=== PATIENT | male | born 1965 | race Caucasian/White ===

== ENCOUNTER 2020-06-14 14:13 | Outpatient (REF) | payer OTHER, SELFPAY ==
--- NOTE | 2020-06-14 14:32 | XR_ITS ---
EXAMINATION: XR LUMBOSACRAL SPINE CLINICAL INFORMATION: Lower back pain COMPARISON: None TECHNIQUE: Three views of the lumbosacral spine. FINDINGS: There is no fracture or subluxation. Vertebral body height and alignment is maintained. Small endplate osteophytes. Facet arthropathy at the lumbar spine. The sacroiliac joints are symmetric. The sacrum appears intact. The bowel gas pattern is unremarkable. XR/XR lumbar spine 2-3V IMPRESSION: Mild degenerative changes of the lumbar spine.
[2020-06-14 15:18] LABS: D Dimer < 200 NG/ML
== END 2020-06-14 14:14 | disposition home or self-care (01) ==
LOC: HO.XRAY 14:13
PROVIDERS: PCP Physician Assistant; Visit Provider Nurse Practitioner Family
DX: E11.42 Type 2 diabetes mellitus with diabetic polyneuropathy (principal); G89.29 Other chronic pain; M54.5 Low back pain; G62.9 Polyneuropathy, unspecified
CPT/HCPCS: 36415; 72100; 85379

== ENCOUNTER 2020-08-28 15:30 | Outpatient (REF) | payer OTHER, SELFPAY ==
--- NOTE | 2020-08-28 15:32 | MR_ITS ---
MR LUMBAR SPINE WITHOUT IV CONTRAST CLINICAL INFORMATION: Lumbar region radiculopathy COMPARISON: Lumbar spine radiographs 06/14/2020. TECHNIQUE: MRI of the lumbar spine was obtained using routine sequences without contrast. FINDINGS: There are 5 nonrib-bearing lumbar-type vertebral bodies. Lumbar alignment is normal. The vertebral body heights are maintained. Partial disc desiccation at L1-L2, L2-L3, and L3-L4. There is no bone marrow edema. There are no acute fractures. Conus terminates at the L1 level. There are no significant soft tissue findings. L1-L2: Slight annular disc bulge and mild bilateral facet arthropathy. No central canal stenosis and no foraminal stenosis. L2-L3: Small annular disc bulge and mild bilateral facet arthropathy. No central canal stenosis. Mild foraminal encroachment bilaterally. L3-L4: Diffuse annular disc bulge and bilateral facet arthropathy. No central canal stenosis. There is mild foraminal encroachment bilaterally. L4-L5: Diffuse annular disc bulge and moderate bilateral facet arthropathy. No central canal stenosis. There is mild foraminal encroachment bilaterally. L5-S1: Epidural lipomatosis results in moderate to severe thecal sac effacement. Left greater than right lateral disc protrusions resulting in mass effect on the extraforaminal left greater than right L5 nerve roots, best seen on the axial series. MR/MR lumbar spine wo con IMPRESSION: - At L5-S1, there are left greater than right lateral disc protrusions resulting in mass effect on the extraforaminal left greater than right L5 nerve roots, best seen on the axial series. Epidural lipomatosis at L5-S1 results in moderate to severe thecal sac effacement. - Additional degenerative changes throughout the lumbar spine as described.
== END 2020-08-28 15:31 | disposition home or self-care (01) ==
LOC: HO.MRI 15:30
PROVIDERS: Visit Provider Physician Assistant
DX: M54.16 Radiculopathy, lumbar region (principal)
CPT/HCPCS: 72148

== ENCOUNTER → 2020-10-25 13:51 | Outpatient (BNVA) | payer OTHER, SELFPAY | PROVIDERS: PCP Physician Assistant; Visit Provider Anesthesiology | DX: M47.816 Spondylosis without myelopathy or radiculopathy, lumbar region (principal); E66.01 Morbid (severe) obesity due to excess calories; Z68.38 Body mass index [BMI] 38.0-38.9, adult; Z79.899 Other long term (current) drug therapy; Z71.3 Dietary counseling and surveillance | CPT/HCPCS: 99202 ==

== ENCOUNTER → 2020-11-22 14:01 | Outpatient (BNVA) | payer OTHER, SELFPAY | PROVIDERS: PCP Physician Assistant; Visit Provider Nurse Practitioner Gerontology | DX: E11.65 Type 2 diabetes mellitus with hyperglycemia (principal); E11.42 Type 2 diabetes mellitus with diabetic polyneuropathy; E11.21 Type 2 diabetes mellitus with diabetic nephropathy; I10 Essential (primary) hypertension; E78.5 Hyperlipidemia, unspecified; E66.01 Morbid (severe) obesity due to excess calories | CPT/HCPCS: 82947; 99212 ==

== ENCOUNTER → 2021-01-07 14:19 | Outpatient (BNVA) | payer OTHER, SELFPAY | PROVIDERS: PCP Physician Assistant; Visit Provider Anesthesiology | DX: M47.816 Spondylosis without myelopathy or radiculopathy, lumbar region (principal); E66.01 Morbid (severe) obesity due to excess calories | CPT/HCPCS: 99212 ==

== ENCOUNTER 2021-01-15 06:28 | Outpatient (REF) | payer OTHER, SELFPAY ==
--- NOTE | ~2021-01-15 | FL_ITS ---
EXAMINATION: XR FLUOROSCOPY WITH IMAGES CLINICAL INFORMATION: Spondylosis without myelopathy or radiculopathy. COMPARISON: None. TECHNIQUE: Fluoroscopy performed by Hilda Arnold NP. Fluoroscopy time: 0.7 minutes DAP: 15.7 Gycm2 Images: 6 FINDINGS: There are needles positioned lateral to bilateral L4 and L5 pedicles with contrast opacifying the soft tissues for pain management. Visualized bones and the disc spaces are normal. FL/FL guidance in treatment room IMPRESSION: Fluoroscopy was provided to Clayton Stevens for pain management
== END 2021-01-15 06:29 | disposition home or self-care (01) ==
LOC: HO.RADIR 06:28
PROVIDERS: Visit Provider Anesthesiology
DX: M47.816 Spondylosis without myelopathy or radiculopathy, lumbar region (principal); E66.01 Morbid (severe) obesity due to excess calories
CPT/HCPCS: 64493; 64494; Q9967

== ENCOUNTER → 2021-01-21 11:30 | Outpatient (BNVA) | payer OTHER, SELFPAY | PROVIDERS: PCP Physician Assistant; Visit Provider Anesthesiology ==

== ENCOUNTER 2021-03-19 07:52 | Outpatient (REF) | payer OTHER, SELFPAY | END 2021-03-19 07:53 | disposition home or self-care (01) | LOC: HO.RADIR 07:52 | PROVIDERS: Visit Provider Anesthesiology | DX: Z13.89 Encounter for screening for other disorder (principal) ==

== ENCOUNTER 2021-05-28 14:00 | Outpatient (RCR) | payer OTHER, SELFPAY ==
--- NOTE | 2021-04-19 08:19 | MHC.PT.EP ---
[facility] [place] Office [place] Office [place] Office [address] Leandro Martinez [address] [phone] F: [phone] F: [phone] F: [phone] F: [phone] Physical Therapy Plan of Care Date of Evaluation: Date of Surgery: Diagnosis: This is a 55 yo male presenting to skilled PT with a script for unspecified thoracic, thoracolumbar and lumbosacra Assessment: This is a 55 yo male presenting to skilled PT with a script for unspecified thoracic, thoracolumbar and lumbosacral. His pain started about 1 year ago when he fell in a laundry mat when he tripped on step. He wants to look into a lawsuit. Following this he had back aches and leg tingling and numbness. He went to MD who reported that this was neuropathy. He does report poor blood sugars and nutrition but is not convinced his symptoms are neuropathy. Today at [facility] he comes in with back pain that is across the low back and described as achy, at B quads and described as burning and at B feet which are described as numb/swollen. He was being followed by [facility] pain management for chronic back pain where he received cortisone injections but denied epidural injections and surgery. He reports that he occasionally walks with a straight cane for balance. He has tried the chiropractor which helped mildly (manipulations only) and he is interested in trialing acupuncture as well if pain does not improve with PT. Assessment reveals pain that ranges up to a 5/10. He demos decreased gross LB and lumbar ROM, decreased gross LB and core strength, impaired gait pattern with evidence of decreased balance as well as gross functional decline with sitting, standing, walking and sleeping. His goals are to improve his symptoms and ROM. He works as a information systems security manager and has a history of neuropathy. MRI shows At L5-S1, there are left greater than right lateral disc protrusions resulting in mass effect on the extraforaminal left greater than right L5 nerve roots, best seen on the axial series. Epidural lipomatosis at L5-S1 results in moderate to severe thecal sac effacement. He was educated on PT POC and anatomy extensively. He is a fair candidate for skilled PT 2x/wk for 5wks. Frequency and Duration: The patient will be seen 2x/wk for 5wks Short Term Goals: I in HEP Demo normal lumbar ROM without peripheralization Centralize symptoms in 3 weeks Detention Goals: Tolerate sitting for 30 mins without BLE symptoms increasing Demo proper core stab without PT cuing Demo proper squatting and lifting techniques without cuing from PT Treatment Plan: Modalities to reduce pain, spasms and effusion. Manual therapy to restore motion and function. Therapeutic exercise to improve strength and flexibility. Neuromuscular re-education for posture and balance. Therapeutic activities to return to functional activities of daily living. Electronically signed by: Jil Dior PT Please sign and return to therapist. Thank you for your referral.
--- NOTE | 2021-06-28 15:19 | MHC.PT.DC ---
[facility] [place] Office [place] Office [place] Office [address] Leandro Martinez [address] [phone] F: [phone] F: [phone] F: [phone] F: [phone] Physical Therapy Discharge Report Diagnosis: This is a 55 yo male presenting to skilled PT with a script for unspecified thoracic, thoracolumbar and lumbosacra Date of Surgery: Date of Evaluation: 04/18/21 Date of Discharge: 06/28/21 Treatments to Date: 5 Cancellations to Date: 0 No Shows to Date: 0 Discharge Status: Discharge Summary: 05/28: Pt came 15 mins late to the last appointment he attended. He reports symptoms with all ther-ex and continuation of symptoms. Educated on importance of doing HEP and continuing exercises at home. He is fatigued with ther-ex and would benefit from continued exercise and cardio. Patient did not have further appointments scheduled, kept chart open for 30 days in case patient called to make further appointments prior to DC. DC to HEP Electronically signed by: Jil Dior PT Please sign and return to therapist. Thank you for your referral.
== END 2021-06-28 15:20 | disposition home or self-care (01) ==
LOC: HO.PTCHIC 14:00
PROVIDERS: PCP Physician Assistant; Visit Provider Physician Assistant
DX: M51.9 Unspecified thoracic, thoracolumbar and lumbosacral intervertebral disc disorder (principal)
CPT/HCPCS: 97110; 97162

== ENCOUNTER 2021-06-29 07:15 | Outpatient (REF) | payer OTHER, SELFPAY ==
[2021-06-29 09:38] LABS: Hematocrit 47.4 % (42.0-52.0); Hemoglobin 15.9 g/dl (14.0-18.0); Mean Corpuscular HGB Conc 33.5 g/dl (31.0-36.0); Mean Corpuscular Hemoglobin 28.2 pg (27.0-33.0); Mean Platelet Volume 9.9 fL (9.4-12.4); Platelet Count 338 X10*3/uL (160-400); Red Blood Count 5.64 X10*6/uL (4.60-5.80); White Blood Count 9.4 X10*3/uL (4.8-10.8)
[2021-06-29 09:40] LABS: Estimated Average Glucose 272 mg/dL; Hemoglobin A1c % 11.1 %
[2021-06-29 09:50] LABS: Alanine Aminotransferase 26 U/L (0-40); Albumin Level 4.3 g/dL (3.5-5.0); Alkaline Phosphatase 102 U/L (39-117); Anion Gap 14 (12-20); Aspartate Amino Transferase 16 U/L (5-37); Bilirubin Total 0.8 mg/dL (0.0-1.0); Blood Urea Nitrogen 17 mg/dL (9-16); Calcium 9.8 mg/dL (8.4-10.2); Carbon Dioxide 26 mmol/L (22-29); Chloride 98 mmol/L (96-108); Cholesterol 185 mg/dL; Estimated Glomerular Filt Rate > 60; Glucose Fasting 295 mg/dL (60-99); HDL Cholesterol 39 mg/dL; LDL Cholesterol Calculated 114 mg/dl; Potassium 4.7 mmol/L (3.3-5.1); Sodium 133 mmol/L (135-145); Total Protein 7.4 g/dL (6.5-8.0); Triglycerides 163 mg/dL
[2021-06-29 10:02] LABS: Alanine Aminotransferase 26 U/L (0-40); Albumin Level 4.2 g/dL (3.5-5.0); Alkaline Phosphatase 101 U/L (39-117); Anion Gap 15 (12-20); Aspartate Amino Transferase 16 U/L (5-37); Bilirubin Total 0.8 mg/dL (0.0-1.0); Blood Urea Nitrogen 17 mg/dL (9-16); Calcium 9.8 mg/dL (8.4-10.2); Carbon Dioxide 25 mmol/L (22-29); Chloride 99 mmol/L (96-108); Cholesterol 184 mg/dL; Estimated Glomerular Filt Rate > 60; Glucose Fasting 291 mg/dL (60-99); HDL Cholesterol 38 mg/dL; LDL Cholesterol Calculated 115 mg/dl; Potassium 4.7 mmol/L (3.3-5.1); Sodium 134 mmol/L (135-145); Total Protein 7.3 g/dL (6.5-8.0); Triglycerides 158 mg/dL
[2021-06-29 10:16] LABS: Prostate Specific Antigen Scr 1.09 ng/mL (<0.05-4.0); TSH reflex Free T4 0.44 uIU/mL (0.32-4.0)
[2021-06-29 10:29] LABS: Folate 12.6 ng/mL (> or = 4.0); Vitamin B12 658 pg/mL (200-900)
[2021-06-30 06:36] LABS: LDL Cholesterol Direct 124 mg/dL (<100)
== END 2021-06-29 07:16 | disposition home or self-care (01) ==
LOC: HO.LAB 07:15
PROVIDERS: Nurse Practitioner Gerontology; PCP Physician Assistant; Visit Provider Physician Assistant
DX: Z12.5 Encounter for screening for malignant neoplasm of prostate (principal); E11.42 Type 2 diabetes mellitus with diabetic polyneuropathy; E11.65 Type 2 diabetes mellitus with hyperglycemia; I10 Essential (primary) hypertension; Z79.4 Long term (current) use of insulin
CPT/HCPCS: 36415; 80053; 80061; 82607; 82746; 83036; 83721; 84153; 84443; 85027

== ENCOUNTER → 2021-07-09 09:22 | Outpatient (BNVA) | payer OTHER, SELFPAY | PROVIDERS: PCP Physician Assistant; Visit Provider Nurse Practitioner Gerontology | DX: E11.65 Type 2 diabetes mellitus with hyperglycemia (principal); E11.42 Type 2 diabetes mellitus with diabetic polyneuropathy; E11.21 Type 2 diabetes mellitus with diabetic nephropathy; E78.5 Hyperlipidemia, unspecified; E66.01 Morbid (severe) obesity due to excess calories; I10 Essential (primary) hypertension; R10.9 Unspecified abdominal pain | CPT/HCPCS: 99212 ==

== ENCOUNTER → 2021-08-29 15:48 | Outpatient (BNVA) | payer OTHER, SELFPAY | PROVIDERS: PCP Physician Assistant; Visit Provider Registered Nurse Diabetes Educator ==

== ENCOUNTER 2021-10-15 15:27 | Outpatient (REF) | payer OTHER, SELFPAY ==
[2021-10-15 16:20] LABS: Anion Gap 13 (12-20); Blood Urea Nitrogen 20 mg/dL (9-16); Calcium 9.7 mg/dL (8.4-10.2); Carbon Dioxide 29 mmol/L (22-29); Chloride 97 mmol/L (96-108); Estimated Glomerular Filt Rate > 60; Glucose Random 333 mg/dL (60-115); Potassium 4.4 mmol/L (3.3-5.1); Sodium 135 mmol/L (135-145)
[2021-10-15 16:57] LABS: Folate 14.4 ng/mL (> or = 4.0); Vitamin B12 1372 pg/mL (200-900)
== END 2021-10-15 15:28 | disposition home or self-care (01) ==
LOC: HO.LAB 15:27
PROVIDERS: PCP Physician Assistant; Visit Provider Physician Assistant
DX: Z01.812 Encounter for preprocedural laboratory examination (principal); E11.21 Type 2 diabetes mellitus with diabetic nephropathy
CPT/HCPCS: 36415; 80048; 82607; 82746

== ENCOUNTER 2021-10-16 12:41 | Outpatient (REF) | payer OTHER, SELFPAY ==
--- NOTE | ~2021-10-16 | CT_ITS ---
EXAMINATION: CT ABDOMEN AND PELVIS WITH CONTRAST CLINICAL INFORMATION: Abdominal pain. COMPARISON: None TECHNIQUE: Multidetector volumetric images were obtained from the superior aspect of the liver through the pubic symphysis following administration 85 mL of Omnipaque 350 intravenous contrast. Sagittal and coronal reformatted images were obtained on the technologist's workstation. Oral contrast: No This CT examination was performed using dose optimization techniques as appropriate, variously including the following: *Automated exposure control *Adjustment of mA and/or kV according to patient size (this includes techniques or standardized protocols for targeted exams where dose is matched to indication/reason for exam; i.e. extremities or head) *Use of iterative reconstruction technique DLP: 810 mGy-cm FINDINGS: LUNG BASES: The visualized lung bases are unremarkable. LIVER, GALLBLADDER, AND BILIARY TREE: The liver is normal in size, shape, and mild hypoattenuation. No focal hepatic lesion or biliary ductal dilatation is present. The gallbladder is unremarkable with no evidence of radiopaque gallstones, gallbladder wall thickening, or obvious pericholecystic inflammatory changes. PANCREAS: Unremarkable. SPLEEN: The spleen is unremarkable. There is a tortuous splenic vein along the tail of the pancreas. ADRENAL GLANDS: Unremarkable. KIDNEYS AND URETERS: Kidney nephrograms are symmetrical without any radiopaque calculi or hydronephrosis. No cyst or solid enhancing mass seen. There is no perinephric stranding. BLADDER: The bladder is unremarkable. GASTROINTESTINAL TRACT: There is scattered stool and gas seen throughout the colon without significant distention. Contrast opacified small bowel loops are normal caliber. Appendix is normal caliber. ABDOMINAL WALL: No significant hernia is appreciated. LYMPH NODES: Normal. VASCULAR: Unremarkable. PELVIC VISCERA: Unremarkable. OSSEOUS STRUCTURES: Unremarkable. CT/CT abdomen pelvis w con IMPRESSION: No acute intra-abdominal process seen. Mild constipation. Normal appendix. Fleischner guidelines were followed.
[2021-10-16] MEDS: iohexoL 350 MG/ML 100 ML INFUS..BTL IV (15:27)
[2021-10-16] MEDS: Barium Sulfate Oral (Berry) 450 ML ORAL.SUSP 900 ML PO (15:28)
== END 2021-10-16 12:42 | disposition home or self-care (01) ==
LOC: HO.CT 12:41
PROVIDERS: Visit Provider Physician Assistant
DX: R10.9 Unspecified abdominal pain (principal); K59.09 Other constipation
CPT/HCPCS: 74177; Q9967

== ENCOUNTER → 2021-12-17 14:31 | Outpatient (BNVA) | payer OTHER, SELFPAY | PROVIDERS: PCP Physician Assistant; Visit Provider Nurse Practitioner Gerontology | DX: E11.42 Type 2 diabetes mellitus with diabetic polyneuropathy (principal); E11.21 Type 2 diabetes mellitus with diabetic nephropathy; E78.5 Hyperlipidemia, unspecified; E66.01 Morbid (severe) obesity due to excess calories; S91.101A Unspecified open wound of right great toe without damage to nail, initial encounter | CPT/HCPCS: 82947; 99212 ==

== ENCOUNTER 2022-12-12 15:44 | Outpatient (REF) | payer OTHER, SELFPAY | END 2022-12-12 15:45 | disposition home or self-care (01) | LOC: HO.LAB 15:44 | PROVIDERS: Visit Provider Nurse Practitioner Family | DX: R82.90 Unspecified abnormal findings in urine (principal) | CPT/HCPCS: 87086 ==

== ENCOUNTER → 2023-01-15 14:10 | Outpatient (BNVA) | payer OTHER, SELFPAY | PROVIDERS: PCP Physician Assistant; Visit Provider Internal Medicine | DX: G47.33 Obstructive sleep apnea (adult) (pediatric) (principal); E66.9 Obesity, unspecified; E11.42 Type 2 diabetes mellitus with diabetic polyneuropathy; Z68.39 Body mass index [BMI] 39.0-39.9, adult | CPT/HCPCS: 99202 ==

== ENCOUNTER → 2023-02-18 14:35 | Outpatient (REF) | payer OTHER, SELFPAY | LOC: HO.SL 14:35 | PROVIDERS: PCP Physician Assistant; Visit Provider Internal Medicine | DX: G47.33 Obstructive sleep apnea (adult) (pediatric) (principal); E66.9 Obesity, unspecified; R40.0 Somnolence | CPT/HCPCS: 95806 ==

== ENCOUNTER → 2023-02-18 14:46 | Outpatient (BNV) | payer OTHER, SELFPAY | PROVIDERS: PCP Physician Assistant; Visit Provider Internal Medicine | DX: G47.33 Obstructive sleep apnea (adult) (pediatric) (principal) | CPT/HCPCS: 95806 ==

== ENCOUNTER 2023-05-07 15:21 | Outpatient (AMB) | payer OTHER, SELFPAY ==
--- NOTE | 2023-05-07 15:35 | A.OFFPC_ITS ---
Vital Signs 05/07/23 15:36 Height 6 ft 1 in Weight 300 lb 4 oz BMI 39.6 BP 104/68 Blood Pressure Location Lt brachial Position Sitting Respiration 17 Pulse 105 H Pulse Source Pulse Oximeter Pulse Oximetry (%) 98 Oxygen Delivery Method Room Air Intake Visit Reasons: DM, HTN Electoral Officer Required: No Accompanied by: Self / Same As Patient Allergies Sulfa (Sulfonamide Antibiotics) Allergy (Unknown, Verified 05/07/23 15:52) dizzyness,drymouth Medication List - Last Reconciled 05/07/23 by Matty Funez PA-C alpha lipoic acid 300 mg PO BID 30 days aspirin 81 mg PO DAILY atorvastatin 80 mg PO BEDTIME bisacodyl (Fleet Bisacodyl) 10 mg (30 mL) CO DAILY PRN 1 day blood pressure test kit-large As directed blood sugar diagnostic (FreeStyle Lite Strips) As directed three times a day blood-glucose meter (FreeStyle Lite Meter kit) As directed citalopram (Celexa) 60 mg (3 x 20 mg) PO DAILY 30 days CPAP (CPAP Machine/Device) As directed docusate sodium (Colace) 100 mg PO BID 30 days dulaglutide (Trulicity) 3 mg (0.5 mL) subcut QWEEK 4 weeks empagliflozin (Jardiance) 10 mg PO QAM flash glucose scanning reader ([employer] Mat 2 [place]) As directed flash glucose sensor (FreeStyle Mat 2 Sensor kit) As directed every 2 weeks gabapentin 800 mg PO QID 30 days insulin glargine (Lantus Solostar U-100 Insulin) 40 units (0.4 mL) subcut QPM 30 days lactulose 20 grams (30 mL) PO BID PRN 15 days lancets (FreeStyle Lancets) As directed three time a day lisinopril 10 mg PO DAILY 30 days metformin 1,000 mg (2 x 500 mg) PO BID pen needle, diabetic As directed pen needle, diabetic (BD Ultra-Fine Mini Pen Needle) 1 ea subcut DAILY 30 days sennosides (senna) 8.6 mg PO BID 30 days Tobacco use date assessed: 12/12/22 Dental Screening Dental Screen Date: 05/07/23 HPI DM, HTN HPI Details Patient is a 57-year-old male here today for a follow-up visit.? Patient has a past medical history significant for morbid obesity, major depressive disorder, on controlled type 2 diabetes with polyneuropathy, hyperlipidemia, hypertension. Concerns--> Continues to suffer with lower extremity neuropathy ,Continues with daily use gabapentin which has been somewhat helpful. He is interested in speaking with pain management for topical diabetic neuropathy treatment. . DMII: Uncontrolled at this time , today A1c -7.3 from 10. He is not monitoring his blood sugars at this time. He is interested in Really Simple Mat glucose monitor. He reports he has been more compliant with the use of his in sulin and other diabetic medication. .. Hypertension: Blood pressure acceptable today in office.. He does not monitor blood pressure at home. Otherwise denies any chest discomfort, palpitations, headaches or dizziness. PLAN: Increase his lisinopril dose better blood pressure control .. Depression: He reports he continues to have depression, offered referral for cognitive behavioral therapy though declines at this time though will consider. cont on Celexa 60mg daily. .. Obesity: He does understand his BMI is well over 30 and will work on being adherent to a diabetic diet to help him lose weight. .. Obstructive sleep apnea: Followed by [facility]. He does use a CPAP machine on a nightly basis good effect on his sleep. 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 Diabetes type 2, uncontrolled Hyperlipidemia LDL goal <100 Essential hypertension Morbid obesity Spondylosis of lumbar region without myelopathy or radiculopathy Lower back pain Neuropathy Diabetes Surgical History Hx of colonoscopy History of surgery History of eye surgery Family History Father Hypertension Diabetes Hepatitis Mother Heart disease CVD (cardiovascular disease) Social History Household Members: None Housing: Apartment Alcohol intake: never Patient Tobacco Use Status: Never used Tobacco e-Cigarette/Vaping Use: Never Used Second Hand Smoke Exposure: No service: No Current occupational status: employed Current occupation: SECURITY Cognitive needs: No Hearing needs: No Vision needs: No Questionnaire PHQ-9 Over the last 2 weeks, how often have you been bothered by any of the following problems? 1. Little interest or pleasure in doing things: more than half the days 2. Feeling down, depressed, or hopeless: nearly every day 3. Trouble falling or staying asleep, or sleeping too much: more than half the days 4. Feeling tired or having little energy: more than half the days 5. Poor appetite or overeating: nearly every day 6. Feeling bad about yourself - or that you are a failure or have let yourself or your family down: more than half the days 7. Trouble concentrating on things, such as reading the newspaper or watching television: not at all 8. Moving or speaking so slowly that other people could have noticed. Or the opposite - being so fidgety or restless that you have been moving around a lot more than usual: not at all 9. Thoughts that you would be better off or of hurting yourself in some way: not at all Total score: 14 Depression Screening Interpretation: Positive Depression Screening Follow-up: Existing condition and Community Mental Health Worker F/U Depression Screening Done: Yes 72613 - PHQ-9 Billing: Yes Source: Developed by Drs. Hermes Kaiser, Arash Arenas and colleagues, with an educational darcie from [employer]. Thrive Questionnaire Date Thrive assessed: 12/12/22 YODIT-7 AMB Questionnaire YODIT-7 Date YODIT - 7 assessed: 09/19/21 Feeling nervous, anxious, or on edge: 0 = Not at all Not being able to stop or control worryin = Not at all Worrying too much about different things: 0 = Not at all Trouble relaxin = Not at all Being so restless that it is hard to sit still: 0 = Not at all Becoming easily annoyed or irritable: 0 = Not at all Feeling afraid as if something awful might happen: 0 = Not at all Total YODIT-7 score (0-4 normal; 5-9 mild; 10-14 moderate; 15-21 severe): 0 Source: Developed by Lalitha Padron Kurt Kroenke and colleagues, with an educational darcie from [employer]. YODIT-7 Assessment Billing YODIT-7 Assessment Tool: YODIT-7 Assessment 57634 Review of Systems Const Denies headache(s) Eyes Denies loss of vision ENT Denies vertigo, Denies dizziness, Denies headache(s) and Denies sore throat Card Denies chest pain, Denies leg edema and Denies lightheadedness Resp Denies cough, Denies hemoptysis and Denies wheezing GI Denies abdominal pain, Denies melena, Denies constipation, Denies diarrhea and Denies vomiting Denies dysuria, Denies urinary frequency and Denies urinary urgency Musc Denies arthralgias, Denies joint swelling, Denies numbness and Denies tingling Neuro Denies Abnormal speech present, Denies behavioral changes, Denies vertigo, Denies dizziness, Denies headache(s), Denies loss of vision, Denies memory loss, Denies numbness and Denies tingling Psych Denies anxiety, Denies behavioral changes, Denies depression, Denies memory loss and Denies panic attacks Sudarshan/Lymph Denies easy bleeding and Denies easy bruising Aller/Immun Denies wheezing Physical exam (Primary Care) Vital Signs: Last Vital Signs Pulse 105 H 05/07/23 15:36 Resp 17 05/07/23 15:36 BP 104/68 05/07/23 15:36 Pulse Ox 98 05/07/23 15:36 Oxygen Delivery Method Room Air 05/07/23 15:36 BMI result Body Mass Index 39.6 BMI Assessment/Plan discussion: High Tobacco/Smoking Status: Tobacco use Status Tobacco use date assessed 12/12/22 05/07/23 15:40 Patient Tobacco Use Status Never used Tobacco 05/07/23 15:40 e-Cigarette/Vaping Use Never Used 05/07/23 15:40 Depression Screening Interpretation: Positive Depression Screening Follow-up: Existing condition and Community Mental Health Worker F/U Thrive Assessment: Date of Thrive Assessment Date Thrive assessed 12/12/22 05/07/23 15:40 Const Other: OBESE General: healthy appearing, no acute distress, alert and awake Nutritional Appearance: well nourished Orientation/consciousness: oriented to person, oriented to place and oriented to time HENMT Ears: TM's normal bilaterally General nose exam: Normal nasal mucous membranes and turbinates present Eyes Conjunctivae: conjunctivae normal Sclerae: sclerae normal Pupils: Equal, round and reactive pupils present Neck Neck: Yes no lymphadenopathy and Yes no JVD Thyroid: Thyroid normal Carotids: no bruits Resp Effort & Inspection: normal respiratory effort and not tachypneic Auscultation: no crackles, no rales, no rhonchi and no wheezes Cardio Rate: regular rate Rhythm: regular rhythm Heart sounds: no murmurs and normal S1 and S2 GI Palpation (GI): Soft to palpation, nontender, no hepatomegaly and no splenomegaly Auscultation: normal bowel sounds Skin General skin exam: no rashes or lesions noted and dry skin Neuro General: oriented to person, oriented to place and oriented to time Cranial nerves: Yes Equal, round and reactive pupils present Speech: No Abnormal speech present Gait exam (Neuro): Normal gait present Motor exam (neuro): no tremor noted Extrem Right upper extremity: full ROM Left upper extremity: full ROM Right lower extremity: full ROM; no edema Left lower extremity: full ROM; no edema Psych Mental Status: mental status grossly normal Speech and movement: Normal speech and movement present Affect: normal affect Attitude: cooperative Thought process: Normal thought process present Office Procedures Flu Questionnaire Does the patient have a severe egg allergy?: No Does the patient have severe life threatening allergies?: No Does the patient have a fever or illness today?: No Has the patient ever had Guillain-Kimball Syndrome?: No Has the patient ever had any past reaction to a flu shot?: No Results AMB Hemoglobin A1c AMB Hemoglobin A1c 7.3 % Last Edit by MYKE Cintron on 05/07/23 15:46 AMB Urinalysis, Automated UA Leukoctes 0 Marie/uL Last Edit by MYKE Cintron on 05/07/23 16:23 UA Nitrite Negative Last Edit by MYKE Cintron on 05/07/23 16:23 UA Urobilinogen 0 mg/dL Last Edit by MYKE Cintron on 05/07/23 16:23 UA Protein 0 mg/dL Last Edit by MYKE Cintron on 05/07/23 16:23 UA pH 6.0 Last Edit by MYKE Cintron on 05/07/23 16:23 UA Blood 0 James/uL Last Edit by MYKE Cintron on 05/07/23 16:23 UA Specific Bells 1.015 Last Edit by MYKE Cintron on 05/07/23 16:23 UA Ketone Negative Last Edit by MYKE Cintron on 05/07/23 16:23 UA Bilirubin 0 mg/dL Last Edit by MYKE Cintron on 05/07/23 16:23 UA Glucose 1000 mg/dL Last Edit by MYKE Cintron on 05/07/23 16:23 Immunizations flu vacc [id number] 6mos up(PF) 60 mcg(15 mcgx4)/0.5 mL IM syringe Performing Provider: Matty Funez PA-C [facility] Administered by: MYKE Cintron on 05/07/23 16:13 2 Dose Route Admin Location Dispensed Lot Number Expiration Date [employer] Super[employer] 0.5 mL IM Right Deltoid 0.5 mL [id number] 01/24/24 [id number] [employer] VIS Given Date VIS Provided VIS Publication Date 05/07/23 Single Vaccine 21 Eligibility Eligibility Date Funding Source Not VF Eligible 05/07/23 Private Results Reviewed Results Reviewed: Laboratory Last Values Hgb A1c (Clinic) 7.3 % (4.0-6.0) H 05/07/23 15:46 Urine pH (Auto) 6.0 05/07/23 16:22 Specific Bells (Auto) 1.015 05/07/23 16:22 Urine Protein (Auto) 0 mg/dL 05/07/23 16:22 Glucose (UA)(Auto) 1000 mg/dL 05/07/23 16:22 Urine Ketones (Auto) Negative 05/07/23 16:22 Urine Blood (Auto) 0 James/uL 05/07/23 16:22 Urine Nitrite (Auto) Negative 05/07/23 16:22 Urine Bilirubin (Auto) 0 mg/dL 05/07/23 16:22 Urine Urobilinogen (Auto) 0 mg/dL 05/07/23 16:22 Leukocyte Esterase (Auto) 0 Marie/uL 05/07/23 16:22 Assessment and Plan Assessment & Plan (1) Type 2 diabetes with nephropathy: Code(s): E11.21 - Type 2 diabetes mellitus with diabetic nephropathy Plan: Patient's diabetes suboptimally controlled with A1c is 7.3 though much improved from previous. Has been more compliant with his diabetic medication. He does report his diet is still somewhat poor and will work on lifestyle modifications and diabetic diet to better control his diabetes. Continues to have worsening lower extremity neuropathy. He reports he feels very numb from his mid liu to the tip of his toes. Advised to often check feet for any skin breakdown ulcer formations. Goal A1c is to be below 7. (2) MDD (major depressive disorder), recurrent episode, moderate: Code(s): F33.1 - Major depressive disorder, recurrent, moderate Plan: He reports his depression has worsened somewhat. Continues on Celexa 60 mg daily and is considering a change in the medication. He is now willing to do cognitive behavioral therapy. Otherwise denies any SI or HI. (3) Essential hypertension: Code(s): I10 - Essential (primary) hypertension Plan: Blood pressure today acceptable in office. Will continue his current dose of lisinopril Advised to monitor blood pressure at home with goal (4) Morbid obesity: Code(s): E66.01 - Morbid (severe) obesity due to excess calories Plan: Patient does understand his BMI is over 30 will continue working on being more physically active and adapting to better eating habits to reduce his weight. Orders: Orders AMB Hemoglobin A1c 05/07/23 E11.42 - Type 2 diabetes mellitus with diabetic polyneuropathy Influenza 1202-3043 Immunization 05/07/23 Z23 - Encounter for immunization Complete Blood Count no Diff 05/07/23 E11.21 - Type 2 diabetes mellitus with diabetic nephropathy Prostate Specific Antigen Scr 05/07/23 E11.21 - Type 2 diabetes mellitus with diabetic nephropathy, Z12.5 - Encounter for screening for malignant neoplasm of prostate AMB Urinalysis Automated 05/07/23 R82.90 - Unspecified abnormal findings in urine Lipid Panel 05/07/23 E78.5 - Hyperlipidemia, unspecified Comprehensive [place]. Panel Fast 05/07/23 E11.21 - Type 2 diabetes mellitus with diabetic nephropathy Referrals Pain Management Referral E11.42 - Type 2 diabetes mellitus with diabetic polyneuropathy Counseling Referral F33.1 - Major depressive disorder, recurrent, moderate Medications: Changed From atorvastatin 80 mg PO BEDTIME 30 tabs 6RF E78.5 - Hyperlipidemia, unspecified To atorvastatin 80 mg PO BEDTIME 90 days 90 tabs 2RF E78.5 - Hyperlipidemia, unspecified Refilled pen needle, diabetic (BD Ultra-Fine Mini Pen Needle) 1 ea subcut DAILY 30 days 30 ea 6RF E11.42 - Type 2 diabetes mellitus with diabetic polyneuropathy, Z79.4 - termite treater helper (current) use of insulin Discontinued empagliflozin (Jardiance) Discontinued Reason: Doctor's Order 10 mg PO QAM 30 tabs 6RF E11.65 - Type 2 diabetes mellitus with hyperglycemia Coding Level of Care Code Est Pt Level 4 (46376) Diagnoses Type 2 diabetes with nephropathy E11.21 MDD (major depressive disorder), recurrent episode, moderate F33.1 Essential hypertension I10 Morbid obesity E66.01 Additional Codes YODIT-7 Assessment Billing - YODIT-7 Assessment Tool: YODIT-7 Assessment 00882 ([id number])
[2023-05-07 15:36] VITALS: BP 104/68; PULSE 105; RESP 17; O2SAT 98; BMI 39.6
== END 2023-05-07 16:18 | disposition home or self-care (01) ==
PROVIDERS: PCP Physician Assistant; Visit Provider Physician Assistant
DX: E11.42 Type 2 diabetes mellitus with diabetic polyneuropathy (principal); Z23 Encounter for immunization; R82.90 Unspecified abnormal findings in urine
CPT/HCPCS: 81003; 83036; 90471; 90686; 96127; 99214

== ENCOUNTER 2023-05-12 13:34 | Outpatient (AMB) | payer OTHER, SELFPAY ==
[2023-05-12 13:46] VITALS: BP 124/66; PULSE 90; O2SAT 96; BMI 39.6
--- NOTE | 2023-05-12 13:46 | A.OFFVIS_ITS ---
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 Accompanied by: Self / Same As Patient Allergies Sulfa (Sulfonamide Antibiotics) Allergy (Unknown, Verified 05/12/23 14:08) dizzyness,drymouth Medication List - Last Reconciled 05/12/23 by Oumar Martinez MD alpha lipoic acid 300 mg PO BID 30 days atorvastatin 80 mg PO BEDTIME 90 days bisacodyl (Fleet Bisacodyl) 10 mg (30 mL) [place] DAILY PRN 1 day blood pressure test kit-large As directed blood sugar diagnostic (FreeStyle Lite Strips) As directed three times a day blood-glucose meter (FreeStyle Lite Meter kit) As directed citalopram (Celexa) 60 mg (3 x 20 mg) PO DAILY 30 days CPAP (CPAP Machine/Device) As directed docusate sodium (Colace) 100 mg PO BID 30 days dulaglutide (Trulicity) 3 mg (0.5 mL) subcut QWEEK 4 weeks flash glucose scanning reader ([employer] Mat 2 [place]) As directed flash glucose sensor (FreeStyle Mat 2 Sensor kit) As directed every 2 weeks gabapentin 800 mg PO QID 30 days insulin glargine (Lantus Solostar U-100 Insulin) 40 units (0.4 mL) subcut QPM 30 days lactulose 20 grams (30 mL) PO BID PRN 15 days lancets (FreeStyle Lancets) As directed three time a day lisinopril 10 mg PO DAILY 30 days metformin 1,000 mg (2 x 500 mg) PO BID pen needle, diabetic (BD Ultra-Fine Mini Pen Needle) 1 ea subcut DAILY 30 days sennosides (senna) 8.6 mg PO BID 30 days Do you need a note to return to daycare/school/sports/work: No HPI Obstructive sleep apnea HPI Details 57 YEARS OLD VERY PLEASANT GENTLEMAN WHO WORKS A [employer], AND HAS BEEN GROSSLY OBESE. HE IS A CONFIRMED CASE OF OBSTRUCTIVE SLEEP APNEA AND HAS BEEN STARTED ON CPAP THERAPY WITH AUTO PAP MODE PRESSURE SETTING 6-16 CM. HE IS USING HIS NEW CPAP MACHINE, WITH A FULL FACE MASK, EVERY NIGHT VERY REGULARLY. HE CLAIMS THAT HIS SLEEP IS DEFINITELY IMPROVED BUT NOT COMPLETELY. HE IS SOMEWHAT MORE ENERGETIC DURING THE DAYTIME AND DOES NOT HAVE DAYTIME SLEEPINESS. 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 Diabetes type 2, uncontrolled Hyperlipidemia LDL goal <100 Essential hypertension Morbid obesity Spondylosis of lumbar region without myelopathy or radiculopathy Lower back pain Neuropathy Diabetes Surgical History Hx of colonoscopy History of surgery History of eye surgery Family History Father Hypertension Diabetes Hepatitis Mother Heart disease CVD (cardiovascular disease) Social History Household Members: None Housing: Apartment Alcohol intake: never Patient Tobacco Use Status: Never used Tobacco Smoked in Last 30 Days: No e-Cigarette/Vaping Use: Never Used Second Hand Smoke Exposure: No service: No Current occupational status: employed Current occupation: SECURITY Cognitive needs: No Hearing needs: No Vision needs: No Review of Systems Const All systems reviewed & are unremarkable except as noted in HPI and below Reports snoring Eyes Reports no additional complaints ENT Reports no additional complaints Card Denies chest pain, Denies irregular heart rhythm and Denies leg edema Resp Denies cough, Reports snoring and Denies wheezing GI Reports no additional complaints Reports nocturia Musc Reports abnormal gait (USUALLY HE HE WALKS OKAY BUT SOMETIME HE NEEDS A CANE.), Reports back pain (MILD, CHRONIC ) and Reports numbness (PERIPHERAL NEUROPATHY IN THE LEGS) Skin/Breast Reports system reviewed and no additional complaints, except as documented Neuro Reports abnormal gait (USUALLY HE HE WALKS OKAY BUT SOMETIME HE NEEDS A CANE.) and Reports numbness (PERIPHERAL NEUROPATHY IN THE LEGS) Psych Reports depression (CONTROLLED WITH MED) Endo Reports other (DIABETES MELLITUS, INSULIN DEPENDENT) Sudarshan/Lymph Reports no additional complaints Aller/Immun Reports no additional complaints and Denies wheezing Physical Exam Vital Signs: Last Vital Signs Pulse 90 05/12/23 13:46 BP 124/66 05/12/23 13:46 Pulse Ox 96 05/12/23 13:46 Oxygen Delivery Method Room Air 05/12/23 13:46 BMI result Body Mass Index 39.6 Const General: comfortable, no acute distress, alert and awake Orientation/consciousness: patient oriented x3 HEENT Head: Yes normal to inspection General nose exam: No nasal polyps present and No nasal discharge present Face and sinus: Yes sinuses nontender Mouth: oropharynx abnormals (OROPHARYNX IS CROWDED ,TONGUE PLACED BACK, MALLAMPATI CLASS 4) Throat: Yes posterior oropharynx normal Eyes General: appearance normal, both eyes and all related structures Neck Neck: Yes normal visual inspection, Yes no lymphadenopathy, Yes trachea midline, Yes no JVD and Yes other (NECK SIZE 20 IN) Thyroid: Thyroid normal Chest Chest palpation & inspection: normal inspection of the chest, normal palpation of entire chest wall and no tenderness Resp Effort & Inspection: normal respiratory effort and no cough Auscultation: clear to auscultation bilaterally, no crackles and no wheezes Cardio Palpation: normal PMI Rate: regular rate Rhythm: regular rhythm Heart sounds: no gallops and no murmurs Peripheral pulses: Peripheral pulses 2+ throughout GI Palpation (GI): Soft to palpation, nontender, No hepatosplenomegaly present and no masses Auscultation: normal bowel sounds Back/Spine/Pelvis Thoracic/Lumbar Spine: thoracic and lumbar spine normal to inspection and thoraco-lumbar ROM limited Skin General skin exam: no rashes or lesions noted Neuro General: patient oriented x3 and no focal motor deficits Cranial nerves: Yes CN's II-XII intact bilaterally Extrem General: Yes normal to inspection, Yes no clubbing, cyanosis or edema and Yes no calf tenderness Psych Appearance: grossly normal and well kempt Speech and movement: Normal speech and movement present Results Reviewed Results Reviewed: COMPLIANCE REPORT FOR THE LAST 30 NIGHTS IS REVIEWED. HE HAS USED 30/30 NIGHTS, 100% AVERAGE USE PER NIGHT 6 HOURS. PRESSURE USED IS 10-14 CM. HE DOES HAVE ONGOING AIR LEAK 95TH PERCENTILE 105 AND MAXIMUM 120 L/MINUTES. RESIDUAL AHI A 9.4 Assessment & Plan Assessment & Plan (1) Obesity (BMI 30-39.9): Comment: PATIENT HAS NEAR MORBID OBESITY. HE IS A DIABETIC AND IS MANAGED BY DIABETIC DIET. IS ENCOURAGED TO DO MORE PHYSICAL EXERCISE AND TRY TO LOSE. SOME WEIGHT Code(s): E66.9 - Obesity, unspecified (2) MAYRA (obstructive sleep apnea): Comment: LONGSTANDING HISTORY OF OBSTRUCTIVE SLEEP APNEA DIAGNOSED ABOUT 20 YEARS AGO. AFTER CONFIRMING THE DIAGNOSIS OF OBSTRUCTIVE SLEEP APNEA HE HAS BEEN STARTED ON A NEW CPAP MACHINE, . HIS THE FULLFACE MASK HE IS USING IT VERY REGULARLY. THERE IS SOME LEAK ISSUE AND THAT IS WHY HIS MAYRA IS NOT FULLY CONTROLLED, RESIDUAL AHI IS STILL 9.4. PLAN : DISCUSSED ABOUT TO TIGHTENING THE STRAPS AND MINIMIZING THE AIR LEAK ISSUE. COMMENDED FOR HIS USING THE CPAP REGULARLY EVERY NIGHT. WILL RECHECK HIM IN 3 MONTHS, WITH THE COMPLIANCE DATA. Code(s): G47.33 - Obstructive sleep apnea (adult) (pediatric) Coding Level of Care Code Est Pt Level 3 (19541) Diagnoses Obesity (BMI 30-39.9) E66.9 MAYRA (obstructive sleep apnea) G47.33
== END 2023-05-12 14:24 | disposition home or self-care (01) ==
PROVIDERS: PCP Physician Assistant; Visit Provider Internal Medicine
DX: E66.9 Obesity, unspecified (principal); G47.33 Obstructive sleep apnea (adult) (pediatric)
CPT/HCPCS: 99213

== ENCOUNTER → 2023-05-12 13:34 | Outpatient (BNVA) | payer OTHER, SELFPAY | PROVIDERS: PCP Physician Assistant; Visit Provider Internal Medicine | DX: G47.33 Obstructive sleep apnea (adult) (pediatric) (principal); E66.9 Obesity, unspecified; Z68.39 Body mass index [BMI] 39.0-39.9, adult | CPT/HCPCS: 99212 ==

== ENCOUNTER 2023-05-29 14:52 | Outpatient (AMB) | payer OTHER, SELFPAY ==
--- NOTE | 2023-05-29 15:02 | MHC.OFFVIS ---
Intake Vital Signs 05/29/23 15:09 Height 6 ft 1 in Weight 301 lb BMI 39.7 BP 114/73 Blood Pressure Location Lt brachial Position Sitting Respiration 18 Pulse 91 Pulse Source Pulse Oximeter Pulse Oximetry (%) 98 Oxygen Delivery Method Room Air Intake Visit Reasons: Type 2 Diabetic Mellitus w/ Diabetic Neuropathy Allergies Sulfa (Sulfonamide Antibiotics) Allergy (Unknown, Verified 05/12/23 14:08) dizzyness,drymouth HPI HPI Comments History of Present Illness Details Nikolai is a very pleasant 57-year-old male who presents the office today for evaluation and management of his bilateral painful diabetic neuropathy. Patient reports that he has been suffering with this pain for greater than 1 year. His most recent A1c was 7.30 April 2023. Prior to that he reports his A1c was between 10 and 11. He attributes the improvement is A1c to better adherence to use medications and he has been increasing his activity and walking more. Patient endorses 6/10 burning pain to both feet that is worse in the evenings and at night. He also reports numbness to both feet and pins and needles. He is currently taking gabapentin without improvement of this pain. He reports the soles of his feet feel squishy . In terms of muscle damage condition is described as aching, shooting, cramping, numb, stabbing, tingling, pins and needles. Condition is negatively impacting his enjoyment of life, mood, normal work and sleep. 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 Diabetes type 2, uncontrolled Hyperlipidemia LDL goal <100 Essential hypertension Morbid obesity Spondylosis of lumbar region without myelopathy or radiculopathy Lower back pain Neuropathy Diabetes Surgical History Hx of colonoscopy History of surgery History of eye surgery Family History Father Hypertension Diabetes Hepatitis Mother Heart disease CVD (cardiovascular disease) Social History Household Members: None Housing: Apartment Alcohol intake: never Patient Tobacco Use Status: Never used Tobacco e-Cigarette/Vaping Use: Never Used Second Hand Smoke Exposure: No service: No Current occupational status: employed Current occupation: SECURITY Cognitive needs: No Hearing needs: No Vision needs: No Review of Systems Const All systems reviewed & are unremarkable except as noted in HPI and below Physical Exam Vital Signs: Last Vital Signs Pulse 91 05/29/23 15:09 Resp 18 05/29/23 15:09 BP 114/73 05/29/23 15:09 Pulse Ox 98 05/29/23 15:09 Oxygen Delivery Method Room Air 05/29/23 15:09 BMI result Body Mass Index 39.7 General: awake, alert, oriented. Answers questions appropriately. Fully engaged in examination. Skin: warm, dry, intact HEENT: Normocephalic. Hearing intact. Cardiac: External chest normal in appearance. Respiratory: No cough, audible wheezing or stridor. Abdomen: without gross distension. MS: No obvious swelling or deformities. Able to transition from sit to stand unassisted. Ambulates with bilaterally normal heel strike and toe off Decreased light touch and sharp sensation noted to both feet Neurological: Oriented to person, place, time and situation. Thought process intact. No gait abnormalities appreciated. Psychiatric: Appropriate mood and affect. Good judgment and insight. Assessment & Plan Assessment & Plan (1) Painful diabetic neuropathy: Code(s): E11.40 - Type 2 diabetes mellitus with diabetic neuropathy, unspecified Plan Nikolai is a very pleasant 57-year-old male presented to the office today for evaluation management of his painful diabetic neuropathy. Discussed options for treatment including topical treatment, diagnostic interventional testing, epidural steroid injections, peripheral nerve stimulation with Sprint, RFA and more permanent neuromodulation. Informational pamphlets provided. Will submit PA for Qutenza topical application. Patient advised on procedure including preparation and EMLA application prior to appointment. He is aware treatment is done in office and he will be here for 30minutes during each visit. Also discussed option for Nevro SCS trial/implant. Will discuss further if patient does not receive benefit from Qutenza topical. All questions and concerns have been answered and patient agrees with the plan. Patient aware he will be called to schedule appointment for Qutenza pending insurance approval. Coding Level of Care Code New Pt Level 4 (67655) Diagnoses Painful diabetic neuropathy E11.40
[2023-05-29 15:09] VITALS: BP 114/73; PULSE 91; RESP 18; O2SAT 98; BMI 39.7
== END 2023-05-29 15:37 | disposition home or self-care (01) ==
PROVIDERS: PCP Physician Assistant; Visit Provider Registered Nurse Emergency
DX: E11.40 Type 2 diabetes mellitus with diabetic neuropathy, unspecified (principal)
CPT/HCPCS: 99204

== ENCOUNTER → 2023-05-29 14:52 | Outpatient (BNVA) | payer OTHER, SELFPAY | PROVIDERS: PCP Physician Assistant; Visit Provider Registered Nurse Emergency | DX: E11.40 Type 2 diabetes mellitus with diabetic neuropathy, unspecified (principal) | CPT/HCPCS: 99202 ==

== ENCOUNTER 2023-11-19 15:13 | Outpatient (AMB) | payer OTHER, SELFPAY ==
--- NOTE | 2023-11-19 15:21 | A.OFFPC_ITS ---
Vital Signs 11/19/23 15:23 Height 6 ft 1 in Weight 308 lb 4 oz BMI 40.7 BP 110/68 Blood Pressure Location Lt brachial Position Sitting Pulse 92 Pulse Source Pulse Oximeter Pulse Oximetry (%) 98 Oxygen Delivery Method Room Air Intake Visit Reasons: MED review/follow up Director Of Market Analysis Required: No Accompanied by: Self / Same As Patient Allergies Sulfa (Sulfonamide Antibiotics) Allergy (Unknown, Verified 11/19/23 15:38) dizzyness,drymouth Medication List - Last Reconciled 11/19/23 by Matty Funez PA-C alpha lipoic acid 300 mg PO BID 30 days atorvastatin 80 mg PO BEDTIME 90 days bisacodyl (Fleet Bisacodyl) 10 mg (30 mL) [place] DAILY PRN 1 day blood pressure test kit-large As directed blood sugar diagnostic (FreeStyle Lite Strips) As directed three times a day blood-glucose meter (FreeStyle Lite Meter kit) As directed citalopram (Celexa) 60 mg (3 x 20 mg) PO DAILY 30 days CPAP (CPAP Machine/Device) As directed docusate sodium (Colace) 100 mg PO BID 30 days dulaglutide (Trulicity) 3 mg (0.5 mL) subcut QWEEK 4 weeks empagliflozin (Jardiance) 10 mg PO DAILY flash glucose scanning reader (Catch MediaStyle Mat 2 [place]) As directed flash glucose sensor (FreeStyle Mat 2 Sensor kit) As directed every 2 weeks gabapentin 800 mg PO QID 30 days insulin glargine (Lantus Solostar U-100 Insulin) 40 units (0.4 mL) subcut QPM 30 days lactulose 20 grams (30 mL) PO BID PRN 15 days lancets (FreeStyle Lancets) As directed three time a day lisinopril 10 mg PO DAILY 30 days metformin 1,000 mg (2 x 500 mg) PO BID pen needle, diabetic (BD Ultra-Fine Mini Pen Needle) 1 ea subcut DAILY 30 days sennosides (senna) 8.6 mg PO BID 30 days Tobacco use date assessed: 11/19/23 Dental Screening Dental Screen Date: 11/19/23 Did you have a dental visit in the last 12 months?: No Did you have a dental problem in the last 6 months where you did not have access to dental care?: No Was dental information given to patient?: Patient has dentist HPI MED review/follow up HPI Details Patient is a 58-year-old male here today for a follow-up visit.? Patient has a past medical history significant for morbid obesity, major depressive disorder, on controlled type 2 diabetes with polyneuropathy, hyperlipidemia, hypertension. Concerns--> Continues to suffer with lower extremity neuropathy ,Continues with daily use gabapentin which has been somewhat helpful. He seems to be 1 for candidate for topical capsaicin treatments., He has been evaluated by [facility] pain management and was awaiting insurance approval for topical capsaicin treatments . DMII: Patient's type 2 diabetes suboptimally controlled. He does admit to not particularly following diabetic diet. He is not monitoring his blood sugars at this time. He is interested in [employer] glucose monitor. He reports he has been more compliant with the use of his insulin and other diabetic medication. .. Hypertension: Blood pressure acceptable today in office.. He does not monitor blood pressure at home. Otherwise denies any chest discomfort, palpitations, headaches or dizziness. .. Depression: He reports he continues to have depression which hinders him from taking care of himself., we have offered referral for cognitive behavioral therapy though declines at this time though will consider. cont on Celexa 60mg daily. .. Obesity: He does understand his BMI is well over 30 and will work on being adherent to a diabetic diet to help him lose weight. .. Obstructive sleep apnea: Followed by [facility] pulmonology. 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 Diabetes type 2, uncontrolled Hyperlipidemia LDL goal <100 Essential hypertension Morbid obesity Spondylosis of lumbar region without myelopathy or radiculopathy Lower back pain Neuropathy Diabetes Surgical History Hx of colonoscopy History of surgery History of eye surgery Family History Father Hypertension Diabetes Hepatitis Mother Heart disease CVD (cardiovascular disease) Social History Household Members: None Housing: Apartment Alcohol intake: never Patient Tobacco Use Status: Never used Tobacco e-Cigarette/Vaping Use: Never Used Second Hand Smoke Exposure: No service: No Current occupational status: employed Current occupation: SECURITY Cognitive needs: No Hearing needs: No Vision needs: No Questionnaire PHQ-9 Over the last 2 weeks, how often have you been bothered by any of the following problems? 1. Little interest or pleasure in doing things: more than half the days 2. Feeling down, depressed, or hopeless: nearly every day 3. Trouble falling or staying asleep, or sleeping too much: more than half the days 4. Feeling tired or having little energy: more than half the days 5. Poor appetite or overeating: nearly every day 6. Feeling bad about yourself - or that you are a failure or have let yourself or your family down: more than half the days 7. Trouble concentrating on things, such as reading the newspaper or watching television: not at all 8. Moving or speaking so slowly that other people could have noticed. Or the opposite - being so fidgety or restless that you have been moving around a lot more than usual: not at all 9. Thoughts that you would be better off or of hurting yourself in some way: not at all Total score: 14 Depression Screening Interpretation: Positive Depression Screening Follow-up: Existing condition and Community Mental Health Worker F/U Depression Screening Done: Yes 07891 - PHQ-9 Billing: Yes Source: Developed by Drs. Hermes Kaiser, Lalitha Navas, Arash Walters and colleagues, with an educational darcie from [facility]. Thrive Questionnaire Date Thrive assessed: 11/19/23 I am a: Patient What is your living situation today?: I have a steady place to live Within the past 12 months, did the food you bought not last and you didn't have the money to get more?: Never true Within the past 12 months, did you worry whether your food would run out before you got money to buy more?: Never true Do you have trouble paying for medicines?: No Do you have trouble getting transportation to medical appointments?: No Do you have trouble paying your heating and electricity bill?: No Do you have trouble taking care of your child, family member or friend?: No Do you have trouble with day-to-day activities such as bathing, preparing meals, shopping, managing finances, etc.?: No Are you currently unemployed and looking for a job?: No Are you interested in more education?: No Please select the resources that you would like help with: None Currently or been in a relationship where the following occur: no concerns reported THRIVE Score: 0 AUDIT C Alcohol Use Questionnaire (AUDIT-C) 1. How often do you have a drink containing alcohol?: Never 3. How often do you have six or more drinks on one occasion?: Never Total Score: 0 YODIT-7 AMB Questionnaire YODIT-7 Date YODIT - 7 assessed: 11/19/23 Feeling nervous, anxious, or on edge: 1 = Several days Not being able to stop or control worryin = Nearly every day Worrying too much about different things: 3 = Nearly every day Trouble relaxin = Nearly every day Being so restless that it is hard to sit still: 2 = More than half the days Becoming easily annoyed or irritable: 3 = Nearly every day Feeling afraid as if something awful might happen: 1 = Several days Total YODIT-7 score (0-4 normal; 5-9 mild; 10-14 moderate; 15-21 severe): 16 Source: Developed by Drs. Hermes Kaiser, Lalitha Navas, Arash Walters and colleagues, with an educational darcie from [employer] YODIT-7 Assessment Billing YODIT-7 Assessment Tool: YODIT-7 Assessment 89367 Review of Systems Const Denies headache(s) Eyes Denies loss of vision ENT Denies vertigo, Denies dizziness, Denies headache(s) and Denies sore throat Card Denies chest pain, Denies leg edema and Denies lightheadedness Resp Denies cough, Denies hemoptysis and Denies wheezing GI Denies abdominal pain, Denies melena, Denies constipation, Denies diarrhea and Denies vomiting Denies dysuria, Denies urinary frequency and Denies urinary urgency Musc Denies arthralgias, Denies joint swelling, Denies numbness and Denies tingling Neuro Denies Abnormal speech present, Denies behavioral changes, Denies vertigo, Denies dizziness, Denies headache(s), Denies loss of vision, Denies memory loss, Denies numbness and Denies tingling Psych Denies anxiety, Denies behavioral changes, Denies depression, Denies memory loss and Denies panic attacks Sudarshan/Lymph Denies easy bleeding and Denies easy bruising Aller/Immun Denies wheezing Physical exam (Primary Care) Vital Signs: Last Vital Signs Pulse 92 11/19/23 15:23 BP 110/68 11/19/23 15:23 Pulse Ox 98 11/19/23 15:23 Oxygen Delivery Method Room Air 11/19/23 15:23 BMI result Body Mass Index 40.7 Tobacco/Smoking Status: Tobacco use Status Tobacco use date assessed 11/19/23 11/19/23 15:30 Patient Tobacco Use Status Never used Tobacco 11/19/23 15:21 e-Cigarette/Vaping Use Never Used 11/19/23 15:21 PHQ-9: PHQ-9 Score PHQ-9: Total score 14 11/19/23 15:54 Depression Screening Interpretation: Positive Depression Screening Follow-up: Existing condition and Community Mental Health Worker F/U Thrive Assessment: Date of Thrive Assessment Date Thrive assessed 11/19/23 11/19/23 15:30 Currently or been in a relationship where the following occur: no concerns reported Const General: healthy appearing, no acute distress, alert and awake Nutritional Appearance: well nourished Orientation/consciousness: oriented to person, oriented to place and oriented to time HENMT Ears: TM's normal bilaterally General nose exam: Normal nasal mucous membranes and turbinates present Eyes Conjunctivae: conjunctivae normal Sclerae: sclerae normal Pupils: Equal, round and reactive pupils present Neck Neck: Yes no lymphadenopathy and Yes no JVD Thyroid: Thyroid normal Carotids: no bruits Resp Effort & Inspection: normal respiratory effort and not tachypneic Auscultation: no crackles, no rales, no rhonchi and no wheezes Cardio Rate: regular rate Rhythm: regular rhythm Heart sounds: no murmurs and normal S1 and S2 GI Palpation (GI): Soft to palpation, nontender, no hepatomegaly and no splenomegaly Auscultation: normal bowel sounds Skin General skin exam: no rashes or lesions noted and dry skin Neuro General: oriented to person, oriented to place and oriented to time Cranial nerves: Yes Equal, round and reactive pupils present Speech: No Abnormal speech present Gait exam (Neuro): Normal gait present Motor exam (neuro): no tremor noted Extrem Right upper extremity: full ROM Left upper extremity: full ROM Right lower extremity: full ROM; no edema Left lower extremity: full ROM; no edema Psych Mental Status: mental status grossly normal Speech and movement: Normal speech and movement present Affect: normal affect Attitude: cooperative Thought process: Normal thought process present Results AMB Hemoglobin A1c AMB Hemoglobin A1c 7.9 % Last Edit by MYKE Cintron on 11/19/23 15:54 Results Reviewed Results Reviewed: Laboratory Last Values Hgb A1c (Clinic) 7.9 % (4.0-6.0) H 11/19/23 15:17 Assessment and Plan Assessment & Plan (1) Type 2 diabetes with nephropathy: Code(s): E11.21 - Type 2 diabetes mellitus with diabetic nephropathy Plan: Patient's diabetes suboptimally controlled. . Has been more compliant with his diabetic medication. He does report his diet is still somewhat poor and will work on lifestyle modifications and diabetic diet to better control his diabetes. Continues to have worsening lower extremity neuropathy. He reports he feels very numb from his mid liu to the tip of his toes. He is still interested in topical treatment for his diabetic neuropathy in his lower extremities. Advised to often check feet for any skin breakdown ulcer formations. Goal A1c is to be below 7. (2) MDD (major depressive disorder), recurrent episode, moderate: Code(s): F33.1 - Major depressive disorder, recurrent, moderate Plan: Patient's PHQ-9 score positive for depression which has been existing condition for him. He reports his depression has still been a problem. He was speaking with a therapist though did not make a connection and has stopped follow-up. Continues on Celexa 60 mg daily and is considering a change in the medication. Otherwise denies any SI or HI. (3) Essential hypertension: Code(s): I10 - Essential (primary) hypertension Plan: Blood pressure today acceptable in office. Will continue his current dose of lisinopril Advised to monitor blood pressure at home with goal (4) Morbid obesity: Code(s): E66.01 - Morbid (severe) obesity due to excess calories Plan: Patient does understand his BMI is over 30 will continue working on being more physically active and adapting to better eating habits to reduce his weight. (5) Skin lesion of back: Code(s): L98.9 - Disorder of the skin and subcutaneous tissue, unspecified Plan: Interested in seeing Dermatology for removal of skin lesion. (6) GERD (gastroesophageal reflux disease): Code(s): K21.9 - Gastro-esophageal reflux disease without esophagitis Qualifiers: Esophagitis presence: without esophagitis Qualified Code(s): K21.9 - Gastro-esophageal reflux disease without esophagitis Plan: Does report having some current like symptoms. He does report having belching with bad sulfur like odor. (7) YODIT (generalized anxiety disorder): Code(s): F41.1 - Generalized anxiety disorder Plan: Patient's YODIT-7 score positive for anxiety which has been existing condition for him. He will continue his current dose of SSRI therapy. He is considering seeing a new mental health therapist. Orders: Orders AMB Hemoglobin A1c 11/19/23 E11.42 - Type 2 diabetes mellitus with diabetic polyneuropathy Vitamin B12 and Folate 11/19/23 E11.42 - Type 2 diabetes mellitus with diabetic polyneuropathy, E53.8 - Deficiency of other specified B group vitamins Referrals Dermatology Referral L98.9 - Disorder of the skin and subcutaneous tissue, unspecified Medications: New omeprazole 20 mg PO DAILY 30 days 30 caps 3RF K21.9 - Gastro-esophageal reflux disease without esophagitis Patient Instructions: Goals: A1c to be below 7.0 Barriers: Adherence to medication, healthy eating habits and exercise. Coding Level of Care Code Est Pt Level 4 (78588) Diagnoses Type 2 diabetes with nephropathy E11.21 MDD (major depressive disorder), recurrent episode, moderate F33.1 Essential hypertension I10 Morbid obesity E66.01 Skin lesion of back L98.9 Gastroesophageal reflux disease without esophagitis K21.9 Esophagitis presence: without esophagitis YODIT (generalized anxiety disorder) F41.1 Additional Codes YODIT-7 Assessment Billing - YODIT-7 Assessment Tool: YODIT-7 Assessment [id number] ([id number])
[2023-11-19 15:23] VITALS: BP 110/68; PULSE 92; O2SAT 98; BMI 40.7
== END 2023-11-19 16:11 | disposition home or self-care (01) ==
PROVIDERS: PCP Physician Assistant; Visit Provider Physician Assistant
DX: E11.42 Type 2 diabetes mellitus with diabetic polyneuropathy (principal)
CPT/HCPCS: 83036; 99214

== ENCOUNTER 2023-12-23 15:13 | Outpatient (AMB) | payer OTHER, SELFPAY ==
[2023-12-23 15:22] VITALS: BP 132/70; PULSE 94; RESP 22; O2SAT 94
--- NOTE | 2023-12-23 15:22 | MHC.OFFVIS ---
Vital Signs 12/23/23 15:22 12/23/23 16:00 12/23/23 16:26 12/23/23 16:26 Height 61 ft Weight 306 lb BMI 0.4 BP 132/70 114/72 99/55 L 112/57 L Blood Pressure Location Lt brachial Lt brachial Lt brachial Lt brachial Position Sitting Sitting Sitting Sitting Respiration 22 H Pulse 94 Pulse Source Pulse Oximeter Pulse Oximetry (%) 94 Oxygen Delivery Method Room Air Intake Visit Reasons: Qutenza - 1st Treatment Allergies Sulfa (Sulfonamide Antibiotics) Allergy (Unknown, Verified 11/19/23 15:38) dizzyness,drymouth HPI Comments Details: Nikolai presents back to the office today for first Qutenza application. Patient applied EMLA cream at home per instructions. He denies any changes in his painful bilateral peripheral neuropathy since last visit. Denies new meds, allergies or diagnoses. Patient denies any recent injuries or wounds to his feet. Prior: Nikolai is a very pleasant 57-year-old male who presents the office today for evaluation and management of his bilateral painful diabetic neuropathy. Patient reports that he has been suffering with this pain for greater than 1 year. His most recent A1c was 7.30 April 2023. Prior to that he reports his A1c was between 10 and 11. He attributes the improvement is A1c to better adherence to use medications and he has been increasing his activity and walking more. Patient endorses 6/10 burning pain to both feet that is worse in the evenings and at night. He also reports numbness to both feet and pins and needles. He is currently taking gabapentin without improvement of this pain. He reports the soles of his feet feel squishy . In terms of muscle damage condition is described as aching, shooting, cramping, numb, stabbing, tingling, pins and needles. Condition is negatively impacting his enjoyment of life, mood, normal work and sleep. 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 Diabetes type 2, uncontrolled Hyperlipidemia LDL goal <100 Essential hypertension Morbid obesity Spondylosis of lumbar region without myelopathy or radiculopathy Lower back pain Neuropathy Diabetes Surgical History Hx of colonoscopy History of surgery History of eye surgery Family History Father Hypertension Diabetes Hepatitis Mother Heart disease CVD (cardiovascular disease) Social History Household Members: None Housing: Apartment Alcohol intake: never Patient Tobacco Use Status: Never used Tobacco e-Cigarette/Vaping Use: Never Used Second Hand Smoke Exposure: No service: No Current occupational status: employed Current occupation: SECURITY Cognitive needs: No Hearing needs: No Vision needs: No Review of Systems Const All systems reviewed & are unremarkable except as noted in HPI and below Physical Exam Vital Signs: Last Vital Signs Pulse 94 12/23/23 15:22 Resp 22 H 12/23/23 15:22 BP 132/70 12/23/23 15:22 Pulse Ox 94 12/23/23 15:22 Oxygen Delivery Method Room Air 12/23/23 15:22 BMI result Body Mass Index 0.4 General: awake, alert, oriented. Answers questions appropriately. Fully engaged in examination. Skin: warm, dry, intact. decreased light touch sensation bilateral feet. no wounds, cuts, rashes, lesions to either foot. HEENT: Normocephalic. Hearing intact. Cardiac: External chest normal in appearance. Respiratory: No cough, audible wheezing or stridor. Abdomen: without gross distension. MS: No obvious swelling or deformities. Neurological: Oriented to person, place, time and situation. Thought process intact. No gait abnormalities appreciated. Psychiatric: Appropriate mood and affect. Good judgment and insight. Office Meds capsaicin-skin cleanser 8 % topical kit Performing Provider: Michelle Rosario APRN, CNP Performing Location: [facility] Administered by: Michelle Rosario APRN, CNP on 12/23/23 15:51 Dose Route Admin Location Dispensed Lot Number Expiration Date [facility] [employer] 4 ea topical 4 ea [id number] 01/24/26 41551-866-62 [id number] Comments: Patient applied topical EMLA cream to both feet prior to arrival for his scheduled appointment. Feet exposed, no wounds, rashes or breaks in skin noted. Light touch sensation intact bilaterally. Four single use topical patches (179mg capsaicin) divided between feet, 2 patches per foot, wrapped and secured per package instructions. Patient monitored throughout the procedure with BP checks every 15 minutes. He tolerated the 30 minute application well. Assessment & Plan Assessment & Plan (1) Painful diabetic neuropathy: Code(s): E11.40 - Type 2 diabetes mellitus with diabetic neuropathy, unspecified Category: Medical Plan Nikolai is a very pleasant 58 year old male who presented back to the office today for 1st Qutenza topical application for bilateral peripheral neuropathy. Qutenza application as per above. Patient tolerated well, discharged home with no reported untoward effects. Cleansing gel applied prior to discharge, patient given cleansing gel for home use if needed. All questions and concerns were answered. Patient will follow up in the office as planned for next Qutenza application. Orders: Orders AMB Capsaicin Patch - Practice Supplied Today E11.40 - Type 2 diabetes mellitus with diabetic neuropathy, unspecified Coding Level of Care Code Est Pt Level 4 (50404) Diagnoses Painful diabetic neuropathy E11.40
[2023-12-23 16:00] VITALS: BP 114/72
[2023-12-23 16:26] VITALS: BP 112/57; BP 99/55
== END 2023-12-23 16:10 | disposition home or self-care (01) ==
PROVIDERS: PCP Physician Assistant; Visit Provider Registered Nurse Emergency
DX: E11.40 Type 2 diabetes mellitus with diabetic neuropathy, unspecified (principal)
CPT/HCPCS: 17999; 99214

== ENCOUNTER → 2023-12-23 15:13 | Outpatient (BNVA) | payer OTHER, SELFPAY | PROVIDERS: PCP Physician Assistant; Visit Provider Registered Nurse Emergency | DX: E11.42 Type 2 diabetes mellitus with diabetic polyneuropathy (principal) | CPT/HCPCS: 17999; 99212; J7336 ==

== ENCOUNTER 2024-02-13 07:57 | Outpatient (REF) | payer OTHER, SELFPAY ==
[2024-02-13 08:52] LABS: Hematocrit 47.6 % (42.0-52.0); Hemoglobin 15.8 g/dl (14.0-18.0); Mean Corpuscular HGB Conc 33.2 g/dl (31.0-36.0); Mean Corpuscular Hemoglobin 28.3 pg (27.0-33.0); Mean Corpuscular Volume 85.3 fL (80.0-98.0); Mean Platelet Volume 9.5 fL (9.4-12.4); Platelet Count 300 X10*3/uL (160-400); Red Blood Count 5.58 X10*6/uL (4.60-5.80); Red Cell Distribution Width 13.1 % (11.0-16.0); White Blood Count 8.8 X10*3/uL (4.8-10.8)
[2024-02-13 09:26] LABS: Alanine Aminotransferase 39 U/L (0-40); Albumin Level 4.2 g/dL (3.5-5.0); Alkaline Phosphatase 86 U/L (39-117); Anion Gap 15 (12-20); Aspartate Amino Transferase 25 U/L (5-37); Bilirubin Total 0.5 mg/dL (0.0-1.0); Blood Urea Nitrogen 21 mg/dL (9-16); Calcium 9.9 mg/dL (8.4-10.2); Carbon Dioxide 26 mmol/L (22-29); Chloride 101 mmol/L (96-108); Cholesterol 225 mg/dL (<200); Estimated Glomerular Filt Rate > 60; Glucose Fasting 184 mg/dL (60-99); HDL Cholesterol 38 mg/dL (>40); LDL Cholesterol Calculated 153 mg/dL (<100); Potassium 4.6 mmol/L (3.3-5.1); Sodium 137 mmol/L (135-145); Total Protein 7.8 g/dL (6.5-8.0); Triglycerides 173 mg/dL (<150)
[2024-02-13 10:00] LABS: Folate 12.2 ng/mL (> or = 4.0); Prostate Specific Antigen Scr 1.01 ng/mL (<0.05-4.0); Vitamin B12 562 pg/mL (200-900)
== END 2024-02-13 07:58 | disposition home or self-care (01) ==
LOC: HO.LAB 07:57
PROVIDERS: PCP Physician Assistant; Visit Provider Physician Assistant
DX: E11.21 Type 2 diabetes mellitus with diabetic nephropathy (principal); E11.42 Type 2 diabetes mellitus with diabetic polyneuropathy; E53.8 Deficiency of other specified B group vitamins; E78.5 Hyperlipidemia, unspecified; Z12.5 Encounter for screening for malignant neoplasm of prostate
CPT/HCPCS: 36415; 80053; 80061; 82607; 82746; 84153; 85027

== ENCOUNTER 2024-02-22 14:57 | Outpatient (AMB) | payer OTHER, SELFPAY ==
[2024-02-22 15:01] VITALS: BP 140/72; PULSE 82; O2SAT 98; BMI 40.8
--- NOTE | 2024-02-22 15:01 | MHC.PC.OV ---
Vital Signs 02/22/24 15:01 Height 6 ft 1 in Weight 309 lb 4 oz BMI 40.8 BP 140/72 H Blood Pressure Location Lt brachial Position Sitting Pulse 82 Pulse Source Pulse Oximeter Pulse Oximetry (%) 98 Oxygen Delivery Method Room Air Intake Visit Reasons: 3mof\u Allergies Sulfa (Sulfonamide Antibiotics) Allergy (Unknown, Verified 02/22/24 15:15) dizzyness,drymouth Medication List - Last Reconciled 02/22/24 by Matty Funez PA-C alpha lipoic acid 300 mg PO BID 30 days atorvastatin 80 mg PO BEDTIME 90 days bisacodyl (Fleet Bisacodyl) 10 mg (30 mL) FL DAILY PRN 1 day blood pressure test kit-large As directed blood sugar diagnostic (FreeStyle Lite Strips) As directed three times a day blood-glucose meter (FreeStyle Lite Meter kit) As directed citalopram (Celexa) 60 mg (3 x 20 mg) PO DAILY 30 days CPAP (CPAP Machine/Device) As directed docusate sodium (Colace) 100 mg PO BID 30 days dulaglutide (Trulicity) 3 mg (0.5 mL) subcut QWEEK 4 weeks empagliflozin (Jardiance) 10 mg PO DAILY flash glucose scanning reader ([employer]Style Mat 2 [place]) As directed flash glucose sensor (FreeStyle Mat 2 Sensor kit) As directed every 2 weeks gabapentin 800 mg PO QID 30 days insulin glargine (Lantus Solostar U-100 Insulin) 40 units (0.4 mL) subcut QPM 30 days lactulose 20 grams (30 mL) PO BID PRN 15 days lancets (FreeStyle Lancets) As directed three time a day lidocaine-prilocaine 2.5-2.5 % 1 appl topical ONCE lisinopril 10 mg PO DAILY 30 days metformin 1,000 mg (2 x 500 mg) PO BID omeprazole 20 mg PO DAILY 30 days pen needle, diabetic (BD Ultra-Fine Mini Pen Needle) 1 ea subcut DAILY 30 days sennosides (senna) 8.6 mg PO BID 30 days Tobacco use date assessed: 11/19/23 Dental Screening Dental Screen Date: 11/19/23 HPI 3mof\u HPI Details Patient is a 58-year-old male here today for a follow-up visit.? Patient has a past medical history significant for morbid obesity, major depressive disorder, on controlled type 2 diabetes with polyneuropathy, hyperlipidemia, hypertension. Concerns--> has been having more anxiety and stress as of late due to personal issues. Has been having some difficulty sleeping. Not interested in any further medications . DMII: Patient's type 2 diabetes suboptimally controlled. Patient's most recent fasting blood sugar much improved. He does admit to not particularly following diabetic diet. He is not monitoring his blood sugars at this time. He is interested in [employer] Mat glucose monitor. He reports he has been more compliant with the use of his insulin and other diabetic medication. .. Hyperlipidemia: Most recent lipid panel continues to show elevated total cholesterol and LDL. Already on highest potency statin. PLAN: Will add on Zetia to his atorvastatin 80 for better LDL control .. Hypertension: Blood pressure acceptable today in office.. He does not monitor blood pressure at home. Otherwise denies any chest discomfort, palpitations, headaches or dizziness. .. Depression: He reports he continues to have depression which hinders him from taking care of himself., we have offered referral for cognitive behavioral therapy though declines at this time though will consider. cont on Celexa 60mg daily. .. Obesity: He does understand his BMI is well over 30 and will work on being adherent to a diabetic diet to help him lose weight. .. Obstructive sleep apnea: Followed by [facility]. He does use a CPAP machine on a nightly basis good effect on his sleep Laboratory Tests 06/29/21 12/11/21 12/12/22 07:23 14:42 15:31 RBC 5.64 Hgb Fasting Glucose Hgb A1c (Clinic) 10.1 H 10.1 H Triglycerides Cholesterol LDL Cholesterol, C alc 05/07/23 11/19/23 02/13/24 15:46 15:17 08:32 RBC 5.58 Hgb 15.8 Fasting Glucose 184 H Hgb A1c (Clinic) 7.3 H 7.9 H Triglycerides 173 H Cholesterol 225 H LDL Cholesterol, C alc 153 H [facility] Medical History COVID-19 Somnolence, daytime Obesity (BMI 30-39.9) Type 2 diabetes mellitus with diabetic polyneuropathy Type 2 diabetes with nephropathy Diabetes type 2, uncontrolled Hyperlipidemia LDL goal <100 Essential hypertension Morbid obesity Spondylosis of lumbar region without myelopathy or radiculopathy Lower back pain Neuropathy Diabetes Surgical History Hx of colonoscopy History of surgery History of eye surgery Family History Father Hypertension Diabetes Hepatitis Mother Heart disease CVD (cardiovascular disease) Social History Household Members: None Housing: Apartment Alcohol intake: never Patient Tobacco Use Status: Never used Tobacco e-Cigarette/Vaping Use: Never Used Second Hand Smoke Exposure: No service: No Current occupational status: employed Current occupation: SECURITY Cognitive needs: No Hearing needs: No Vision needs: No Questionnaire Thrive Questionnaire Date Thrive assessed: 11/19/23 YODIT-7 AMB Questionnaire YODIT-7 Date YODIT - 7 assessed: 11/19/23 Source: Developed by Drs. Hermes Kaiser, Lalitha Navas, Arash Walters and colleagues, with an educational darcie from [employer]. Review of Systems Const Denies headache(s) Eyes Denies loss of vision ENT Denies vertigo, Denies dizziness, Denies headache(s) and Denies sore throat Card Denies chest pain, Denies leg edema and Denies lightheadedness Resp Denies cough, Denies hemoptysis and Denies wheezing GI Denies abdominal pain, Denies melena, Denies constipation, Denies diarrhea and Denies vomiting Denies dysuria, Denies urinary frequency and Denies urinary urgency Musc Denies arthralgias, Denies joint swelling, Denies numbness and Denies tingling Neuro Denies Abnormal speech present, Denies behavioral changes, Denies vertigo, Denies dizziness, Denies headache(s), Denies loss of vision, Denies memory loss, Denies numbness and Denies tingling Psych Denies anxiety, Denies behavioral changes, Denies depression, Denies memory loss and Denies panic attacks Sudarshan/Lymph Denies easy bleeding and Denies easy bruising Aller/Immun Denies wheezing Physical exam (Primary Care) Vital Signs: Last Vital Signs Pulse 82 02/22/24 15:01 BP 140/72 H 02/22/24 15:01 Pulse Ox 98 02/22/24 15:01 Oxygen Delivery Method Room Air 02/22/24 15:01 BMI result Body Mass Index 40.8 Tobacco/Smoking Status: Tobacco use Status Tobacco use date assessed 11/19/23 02/22/24 15:02 Patient Tobacco Use Status Never used Tobacco 02/22/24 15:02 e-Cigarette/Vaping Use Never Used 02/22/24 15:02 Thrive Assessment: Date of Thrive Assessment Date Thrive assessed 11/19/23 02/22/24 15:02 Const General: healthy appearing, no acute distress, alert and awake Nutritional Appearance: well nourished Orientation/consciousness: oriented to person, oriented to place and oriented to time HENMT Ears: TM's normal bilaterally General nose exam: Normal nasal mucous membranes and turbinates present Eyes Conjunctivae: conjunctivae normal Sclerae: sclerae normal Pupils: Equal, round and reactive pupils present Neck Neck: Yes no lymphadenopathy and Yes no JVD Thyroid: Thyroid normal Carotids: no bruits Resp Effort & Inspection: normal respiratory effort and not tachypneic Auscultation: no crackles, no rales, no rhonchi and no wheezes Cardio Rate: regular rate Rhythm: regular rhythm Heart sounds: no murmurs and normal S1 and S2 GI Palpation (GI): Soft to palpation, nontender, no hepatomegaly and no splenomegaly Auscultation: normal bowel sounds Skin General skin exam: no rashes or lesions noted and dry skin Neuro General: oriented to person, oriented to place and oriented to time Cranial nerves: Yes Equal, round and reactive pupils present Speech: No Abnormal speech present Gait exam (Neuro): Normal gait present Motor exam (neuro): no tremor noted Extrem Right upper extremity: full ROM Left upper extremity: full ROM Right lower extremity: full ROM; no edema Left lower extremity: full ROM; no edema Psych Mental Status: mental status grossly normal Speech and movement: Normal speech and movement present Affect: normal affect Attitude: cooperative Thought process: Normal thought process present Assessment and Plan Assessment & Plan (1) Type 2 diabetes with nephropathy: Code(s): E11.21 - Type 2 diabetes mellitus with diabetic nephropathy Plan: Patient's diabetes suboptimally controlled. . Recent fasting blood sugar much improved. Has been more compliant with his diabetic medication. He does report his diet is still somewhat poor and will work on lifestyle modifications and diabetic diet to better control his diabetes. Goal A1c is to be below 7. (2) Essential hypertension: Code(s): I10 - Essential (primary) hypertension Plan: Blood pressure today acceptable in office. Will continue his current dose of lisinopril Advised to monitor blood pressure at home with goal (3) Morbid obesity: Code(s): E66.01 - Morbid (severe) obesity due to excess calories Plan: Patient does understand his BMI is over 30 will continue working on being more physically active and adapting to better eating habits to reduce his weight. (4) HLD (hyperlipidemia): Code(s): E78.5 - Hyperlipidemia, unspecified Qualifiers: Hyperlipidemia type: mixed hyperlipidemia Qualified Code(s): E78.2 - Mixed hyperlipidemia Plan: Most recent lipid panel showing elevated total cholesterol LDL. Already on highest potency statin. Will add on Zetia 10 mg for better LDL control. Goal LDL to be below 100. Orders: Orders Complete Blood Count no Diff 02/22/24 E11.21 - Type 2 diabetes mellitus with diabetic nephropathy Lipid Panel 02/22/24 E78.5 - Hyperlipidemia, unspecified Microalbumin, Random (w Creat) 02/22/24 E11.21 - Type 2 diabetes mellitus with diabetic nephropathy Comprehensive [place]. Panel Fast 02/22/24 E11.21 - Type 2 diabetes mellitus with diabetic nephropathy Hemoglobin A1c 02/22/24 E11.21 - Type 2 diabetes mellitus with diabetic nephropathy Medications: New ezetimibe (Zetia) 10 mg PO DAILY 90 tabs 1RF E78.5 - Hyperlipidemia, unspecified Refilled dulaglutide (Trulicity) 3 mg (0.5 mL) subcut QWEEK 2 mL 3RF 4 weeks E11.42 - Type 2 diabetes mellitus with diabetic polyneuropathy Patient Instructions: Goal: A1c to be below 7.0, blood pressure be below 140/90 Barriers: Adherence to physical activity and healthy eating habits Coding Level of Care Code Est Pt Level 4 (13972) Diagnoses Type 2 diabetes with nephropathy E11.21 Essential hypertension I10 Morbid obesity E66.01 Mixed hyperlipidemia E78.2 Hyperlipidemia type: mixed hyperlipidemia
== END 2024-02-22 15:50 | disposition home or self-care (01) ==
PROVIDERS: PCP Physician Assistant; Visit Provider Physician Assistant
DX: E11.21 Type 2 diabetes mellitus with diabetic nephropathy (principal); E66.01 Morbid (severe) obesity due to excess calories; Z68.41 Body mass index [BMI] 40.0-44.9, adult; E11.42 Type 2 diabetes mellitus with diabetic polyneuropathy; I10 Essential (primary) hypertension; E78.2 Mixed hyperlipidemia
CPT/HCPCS: 99214

== ENCOUNTER 2024-04-27 15:30 | Outpatient (AMB) | payer OTHER, SELFPAY ==
[2024-04-27 15:35] VITALS: BP 122/83; PULSE 110; O2SAT 96
--- NOTE | 2024-04-27 15:52 | MHC.OFFVIS ---
Vital Signs 04/27/24 15:35 04/27/24 16:15 04/27/24 16:30 BP 122/83 123/60 104/63 Blood Pressure Location Lt brachial Lt brachial Lt brachial Position Sitting Sitting Sitting Pulse 110 H 107 H 112 H Pulse Source Pulse Oximeter Pulse Oximeter Pulse Oximeter Pulse Oximetry (%) 96 96 95 Oxygen Delivery Method Room Air Room Air Room Air Comment Pre Qutenza 15 mins Qutenza 30 mins Qutenza Intake Visit Reasons: Qutenza Allergies Sulfa (Sulfonamide Antibiotics) Allergy (Unknown, Verified 02/22/24 15:15) dizzyness,drymouth HPI Comments Details: Nikolai presents back to the office today for his second topical Qutenza application. He forgot to apply the EMLA cream prior to arrival. He would still like to proceed with the procedure. He denies any changes in his painful bilateral peripheral neuropathy since last visit. Denies new meds, allergies or diagnoses. Patient denies any recent injuries or wounds to his feet. Has been struggling emotionally, his sister approximately 1 month ago. She suffered with down syndrome and he was one of her sole caretakers. This has been mentally and emotionally devastating for the patient. He is currently on FMLA. Prior: Nikolai is a very pleasant 57-year-old male who presents the office today for evaluation and management of his bilateral painful diabetic neuropathy. Patient reports that he has been suffering with this pain for greater than 1 year. His most recent A1c was 7.30 April 2023. Prior to that he reports his A1c was between 10 and 11. He attributes the improvement is A1c to better adherence to use medications and he has been increasing his activity and walking more. Patient endorses 6/10 burning pain to both feet that is worse in the evenings and at night. He also reports numbness to both feet and pins and needles. He is currently taking gabapentin without improvement of this pain. He reports the soles of his feet feel squishy . In terms of muscle damage condition is described as aching, shooting, cramping, numb, stabbing, tingling, pins and needles. Condition is negatively impacting his enjoyment of life, mood, normal work and sleep. 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 Diabetes type 2, uncontrolled Hyperlipidemia LDL goal <100 Essential hypertension Morbid obesity Spondylosis of lumbar region without myelopathy or radiculopathy Lower back pain Neuropathy Diabetes Surgical History Hx of colonoscopy History of surgery History of eye surgery Family History Father Hypertension Diabetes Hepatitis Mother Heart disease CVD (cardiovascular disease) Social History Household Members: None Housing: Apartment Alcohol intake: never Patient Tobacco Use Status: Never used Tobacco e-Cigarette/Vaping Use: Never Used Second Hand Smoke Exposure: No service: No Current occupational status: employed Current occupation: SECURITY Cognitive needs: No Hearing needs: No Vision needs: No Review of Systems Const All systems reviewed & are unremarkable except as noted in HPI and below Physical Exam General: awake, alert, oriented. Answers questions appropriately. Fully engaged in examination. Skin: warm, dry, intact. decreased light touch sensation bilateral feet. no wounds, cuts, rashes, lesions to either foot. HEENT: Normocephalic. Hearing intact. Cardiac: External chest normal in appearance. Respiratory: No cough, audible wheezing or stridor. Abdomen: without gross distension. MS: No obvious swelling or deformities. Neurological: Oriented to person, place, time and situation. Thought process intact. No gait abnormalities appreciated. Psychiatric: Appropriate mood and affect. Good judgment and insight. Office Meds capsaicin-skin cleanser 8 % topical kit Performing Provider: Michelle Rosario APRN, CHRISTIAN Performing Location: [facility] Administered by: Michelle Rosario APRN, CHRISTIAN on 04/27/24 15:52 Dose Route Admin Location Dispensed Lot Number Expiration Date [facility] Landscape Artist 4 ea topical 4 ea [id number] 01/24/26 29019-905-38 [employer] Comments: Patient did not apply topical EMLA cream to his feet prior to arrival for his scheduled appointment. Risks were discusses, he would like to proceed with application. Feet exposed, no wounds, rashes or breaks in skin noted. Light touch sensation intact bilaterally. Four single use topical patches (179mg capsaicin) divided between feet, 2 patches per foot, wrapped and secured per package instructions. Patient monitored throughout the procedure with BP checks every 15 minutes. He tolerated the 30 minute application well. Assessment & Plan Assessment & Plan (1) Painful diabetic neuropathy: Code(s): E11.40 - Type 2 diabetes mellitus with diabetic neuropathy, unspecified Category: Medical Plan Nikolai presented back to the office today for 2nd Qutenza topical application for bilateral peripheral neuropathy. Qutenza application as per above. Patient tolerated well, discharged home with no reported untoward effects. Cleansing gel applied prior to discharge, patient given cleansing gel for home use if needed. All questions and concerns were answered. Patient will follow up in the office as planned for next Qutenza application. Orders: Orders AMB Capsaicin Patch - Practice Supplied Today E11.40 - Type 2 diabetes mellitus with diabetic neuropathy, unspecified Coding Level of Care Code Est Pt Level 4 (08087) Complex EM visit Add On G2211 Diagnoses Painful diabetic neuropathy E11.40
[2024-04-27 16:15] VITALS: BP 123/60; PULSE 107; O2SAT 96
[2024-04-27 16:30] VITALS: BP 104/63; PULSE 112; O2SAT 95
== END 2024-04-27 16:37 | disposition home or self-care (01) ==
PROVIDERS: PCP Physician Assistant; Visit Provider Registered Nurse Emergency
DX: E11.40 Type 2 diabetes mellitus with diabetic neuropathy, unspecified (principal)
CPT/HCPCS: 17999; 99214

== ENCOUNTER → 2024-04-27 15:30 | Outpatient (BNVA) | payer OTHER, SELFPAY | PROVIDERS: PCP Physician Assistant; Visit Provider Registered Nurse Emergency | DX: E11.40 Type 2 diabetes mellitus with diabetic neuropathy, unspecified (principal) | CPT/HCPCS: 17999; 99212; J7336 ==

== ENCOUNTER 2024-08-06 07:20 | Outpatient (REF) | payer OTHER, SELFPAY ==
[2024-08-06 08:02] LABS: Hematocrit 49.2 % (42.0-52.0); Hemoglobin 16.4 g/dl (14.0-18.0); Mean Corpuscular HGB Conc 33.3 g/dl (31.0-36.0); Mean Corpuscular Hemoglobin 27.7 pg (27.0-33.0); Mean Platelet Volume 9.7 fL (9.4-12.4); Platelet Count 323 X10*3/uL (160-400); Red Blood Count 5.93 X10*6/uL (4.60-5.80); Red Cell Distribution Width 13.8 % (11.0-16.0); White Blood Count 9.4 X10*3/uL (4.8-10.8)
[2024-08-06 08:22] LABS: Estimated Average Glucose 269 mg/dL; Hemoglobin A1C 392.3959 umol/L; Total Hemoglobin (HGBA1C) 4050.4241 umol/L
[2024-08-06 08:36] LABS: Creatinine Urine 40.55 mg/dL; Microalbumin Urine < 5.0 mg/L
[2024-08-06 08:51] LABS: Alanine Aminotransferase 51 U/L (0-40); Albumin Level 4.3 g/dL (3.5-5.0); Alkaline Phosphatase 95 U/L (39-117); Anion Gap 14 (12-20); Aspartate Amino Transferase 36 U/L (5-37); Bilirubin Total 0.7 mg/dL (0.0-1.0); Blood Urea Nitrogen 23 mg/dL (9-16); Calcium 9.8 mg/dL (8.4-10.2); Carbon Dioxide 27 mmol/L (22-29); Chloride 100 mmol/L (96-108); Cholesterol 172 mg/dL (<200); Estimated Glomerular Filt Rate > 60; Glucose Fasting 248 mg/dL (60-99); HDL Cholesterol 36 mg/dL (>40); LDL Cholesterol Calculated 108 mg/dL (<100); Potassium 4.6 mmol/L (3.3-5.1); Sodium 136 mmol/L (135-145); Total Protein 8.4 g/dL (6.5-8.0); Triglycerides 144 mg/dL (<150)
== END 2024-08-06 07:21 | disposition home or self-care (01) ==
LOC: HO.LAB 07:20
PROVIDERS: PCP Physician Assistant; Visit Provider Physician Assistant
DX: E11.21 Type 2 diabetes mellitus with diabetic nephropathy (principal); E78.5 Hyperlipidemia, unspecified
CPT/HCPCS: 36415; 80053; 80061; 82570; 83036; 85027

== ENCOUNTER 2024-09-26 15:42 | Outpatient (AMB) | payer OTHER, SELFPAY ==
--- NOTE | 2024-09-26 15:51 | MHC.OFFWIV ---
Intake Vital Signs 09/26/24 15:52 Weight 308 lb BP 130/90 H Blood Pressure Location Lt brachial Position Sitting Pulse 90 Pulse Source Pulse Oximeter Pulse Oximetry (%) 97 Oxygen Delivery Method Room Air Intake Visit Reasons: EP-rt side neck cyst Intake Note: Patient here for cyst on right side of neck that has been present for about 1 week. Patient Tobacco Use Status: Never used Tobacco Allergies Sulfa (Sulfonamide Antibiotics) Allergy (Unknown, Verified 09/26/24 15:56) dizzyness,drymouth Do you need a note to return to daycare/school/sports/work: No HPI HPI Comments History of Present Illness Details History of Present Illness The patient is a 59-year-old male presenting with a cutaneous abscess on the neck. The lesion was observed about one and a half weeks ago and has been enlarging over time. It is located on the right side neck, characterized by tenderness, erythema, warmth, and hardness. The patient reports no prior MRSA infection and denies any injury in that area but notes a recent history of growing facial hair followed by shaving it off two weeks ago. The condition causing throbbing pain has hindered the patient's ability to sleep on the affected side and presents challenges in shaving. Physical Exam General: Cooperative, healthy appearing, comfortable, no acute distress and well developed Orientation: Patient oriented x3 Limitations: No limitations Head: Normal to inspection Ears: Hearing grossly normal bilaterally Nose: Normal Nxternal nose present Face and sinus: Normal facial exam Eyes: Appearance normal, both eyes and all related structures Neck: 2cm oval erythematous, warm indurated abscess on the right side neck Respiratory: Normal respiratory effort and able to speak in complete sentences. 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 Diabetes type 2, uncontrolled Hyperlipidemia LDL goal <100 Essential hypertension Morbid obesity Spondylosis of lumbar region without myelopathy or radiculopathy Lower back pain Neuropathy Diabetes Surgical History Hx of colonoscopy History of surgery History of eye surgery Family History Father Hypertension Diabetes Hepatitis Mother Heart disease CVD (cardiovascular disease) Social History Household Members: None Housing: Apartment Alcohol intake: never Patient Tobacco Use Status: Never used Tobacco e-Cigarette/Vaping Use: Never Used Second Hand Smoke Exposure: No service: No Current occupational status: employed Current occupation: SECURITY Cognitive needs: No Hearing needs: No Vision needs: No Review of Systems Const All systems reviewed & are unremarkable except as noted in HPI and below Physical Exam Vital Signs: Last Vital Signs Pulse 90 09/26/24 15:52 BP 130/90 H 09/26/24 15:52 Pulse Ox 97 09/26/24 15:52 Oxygen Delivery Method Room Air 09/26/24 15:52 Assessment & Plan Assessment & Plan (1) Abscess: Code(s): L02.91 - Cutaneous abscess, unspecified Plan: Proceed with antibiotic therapy for the cutaneous abscess, including cephalexin and doxycycline to cover potential MRSA. Begin treatment promptly for effective management and symptomatic improvement within 48 hours. Advise local warm compress application to alleviate symptoms. Given the lesions induration and its proximity to critical vasculature with no US access, will not perform I&D. Refrain from shaving near the infected site to prevent aggravation of the condition. Patient was informed and verbally consented to the use of an ambient scribe for clinic note documentation during this visit. Medications: New cephalexin 500 mg PO Q6H 28 caps 0RF doxycycline hyclate 100 mg PO BID 14 tabs 0RF Coding Level of Care Code Est Pt Level 3 (28702) Diagnoses Abscess L02.91
[2024-09-26 15:52] VITALS: BP 130/90; PULSE 90; O2SAT 97
--- OUTSIDE RECORDS SUMMARY | 2024-09-26 18:33 | XMS_ITS | Clinical Summary ---
Author Organization [employer] Address [address] [place] [address] Care Team Providers Care Blending Line Attendant Name Role Phone Unavailable Primary Care Provider Unavailabl e Allergies Active Allergy Reactions Criticality Noted Date Comments Sulfa Antibiotics Other 07/21/2016 Medications atorvastatin (Lipitor) 80 MG tablet Take 80 mg by mouth at bedtime. 04/17/20 24 Active citalopram (CeleXA) 20 MG tablet TAKE 3 TABLETS BY MOUTH ONCE DAILY FOR 30 DAYS 06/19/20 24 Active Trulicity 3 MG/0.5ML solution auto-injector INJECT 3 MG (0.5 ML) SUBCUTANEOUSLY ONCE A WEEK 04/25/20 24 Active Jardiance 10 MG Take 10 mg by mouth Once per day. 05/25/20 24 Active FLUoxetine (PROzac) 40 MG capsule 03/23/20 18 Active gabapentin (Neurontin) 800 MG tablet 06/21/20 24 Active glipiZIDE (Glucotrol) 5 MG tablet Take 5 mg by mouth before breakfast and before evening meal. Active ibuprofen 800 MG tablet 04/07/20 18 Active Lantus SoloStar 100 UNIT/ML pen INJECT 40 UNITS SUBCUTANEOUSLY IN THE EVENING 02/16/20 24 Active B-D UF III MINI PEN NEEDLES 31G X 5 MM [facility] USE ONE PEN NEEDLE SUBCUTANEOUSLY ONCE DAILY 09/30/19 24 Active lisinopril 10 MG tablet TAKE 1 TABLET BY MOUTH ONCE DAILY. (DOSE INCREASE) Active metFORMIN (Glucophage) 500 MG tablet Take 1,000 mg by mouth 2 times daily. Active Multiple Vitamin (multivitamin) capsule Take 1 capsule by mouth Once per day. Active omeprazole (PriLOSEC) [address] capsule 06/21/20 24 Active simvastatin (Zocor) 40 MG tablet Take 40 mg by mouth at bedtime. Active amoxicillin (Amoxil) 500 MG capsule Take 1 capsule (500 mg) by mouth every 8 (eight) hours for 7 days. 21 capsule 09/22/19 25 025 Active ibuprofen 400 MG tablet Take 1 tablet (400 mg) by mouth every 6 (six) hours if needed for mild pain for up to 7 days. 28 tablet 09/22/19 25 025 Active ibuprofen 400 MG tablet Take 1.5 tablets (600 mg) by mouth every 6 (six) hours if needed for moderate pain or mild pain for up to 7 days. 30 tablet 08/30/19 25 025 chlorhexidine (Peridex) 0.12 % solution Use 15 mL in the mouth or throat after breakfast and after evening meal for 16 days. 473 mL 08/30/19 025 Active Problems No known active problems Encounters Date Type Department Care Team Description 09/22/2024 Telephone [facility] ADULT DENTAL [address] [place] [address] Soren Rey 08/30/2024 3:30 PM EST Office Visit [facility] ADULT DENTAL [address] [place] [address] Soren Rey 08/30/2024 Telephone [facility] ADULT DENTAL [address] [place] [address] Peña Harrison DMD oral surgery or Dr. Rey 06/29/2024 3:30 PM EST Office Visit [facility] ADULT DENTAL [address] [place] [address] Soren Rey from Last 3 Months Social History Tobacco Use Types Packs/Day Years Used Date Smoking Tobacco: Never Assessed Sex and Gender Information Value Date Recorded Sex Assigned at Male 06/29/2024 8:40 AM EST Legal Sex Male 8:34 AM EST Gender Identity Male 06/29/2024 8:40 AM EST Sexual Orientation Straight 06/29/2024 8: 40 AM EST Plan of Treatment Upcoming Encounters Date Type Department Care Team (Late st Contact Info) Description 09/29/2024 2:00 PM EST Office Visit [facility] ADULT DENTAL [address] [place] [address] Soren Rey [address] [place] [address] [phone] (work) Health Maintenance Due Date Last Done Comments CT Colonography 1966 Colonoscopy 1966 Colorectal Cancer Screening 1966 Dental Oral Exam 1966 Dental Prophylaxis 1966 Dental X-Ray: Full Mouth 1966 Depression Screening 1966 FIT DNA/Cologuard 1966 FIT 1966 FOBT 1966 HIV Screening 1966 Lipid Panel 1966 SDOH Screening 1966 Sigmoidoscopy 1966 Alcohol/Substance Use Screening 1978 Tobacco Screening 1978 Hepatitis C Screening 1984 Hepatitis B Vaccines (1 of 3 - 19+ 3-dose series) 1985 Zoster Vaccines (1 of 2) 2016 Pneumococcal Vaccine: 50+ Years (2 of 2 - PCV) 06/24/2019 06/24/2018 COVID-19 Vaccine ( - season) 2024 Influenza Vaccine (#1) 2024 , 05/15/2022, 05/06/2021, Additional history exists Dental X-Ray: Bitewings 08/31/2025 08/30/2024, 06/29 DTaP/Tdap/Td Vaccines (2 - Td or Tdap) 06/02/2027 06/02/2017 RSV Patients and Patients Aged 60 years or older (1 - 1-dose 75+ series) 2041 HIB Vaccines Aged Out No longer eligi ble based on patient's age to complete this topic HPV Vaccines Aged Out No longer eligi ble based on patient's age to complete this topic Hepatitis A Vaccines Aged Out No long er eligible based on patient's age to complete this topic IPV Vaccines Aged Out No longer eligi ble based on patient's age to complete this topic Meningococcal Vaccine Aged Out No germain alex eligible based on patient's age to complete this topic RSV under 20 months Aged Out No longe r eligible based on patient's age to complete this topic Rotavirus Vaccines Aged Out No longer eligible based on patient's age to complete this topic Procedures Procedure Name Priority Date/Time Associated Diagnosis Comments 30 LIMITED ORAL EVALUATION - PROBLEM FOCUSED Routine 08/30/2024 3:30 PM EST CASE PRESENTATION, DETAILED AND EXTENSIVE TREATMENT PLANNING Routine 08/30/2024 3:30 PM EST BITEWING - SINGLE RADIOGRAPHIC IMAGE Routine 08/30/2024 3:30 PM EST INTRAORAL - PERIAPICAL FIRST RADIOGRAPHIC IMAGE Routine 08/30/2024 3:30 PM EST CASE PRESENTATION, DETAILED AND EXTENSIVE TREATMENT PLANNING Routine 06/29/2024 3:30 PM EST 30 LIMITED ORAL EVALUATION - PROBLEM FOCUSED Routine 06/29/2024 3:30 PM EST BITEWING - SINGLE RADIOGRAPHIC IMAGE Routine 06/29/2024 3:30 PM EST 30 INTRAORAL - PERIAPICAL FIRST RADIOGRAPHIC IMAGE Routine 06/29/2024 3:30 PM EST from Last 3 [place] [address] DENTAL - HSN PARTIAL (MEDICAID)
--- OUTSIDE RECORDS SUMMARY | 2024-09-26 18:33 | XMS_ITS | Encounter Summary ---
Author Organization [employer] Address [address] [place] [address] Care Team Providers Care Pulp Making Plant Operator Name Role Phone Unavailable Primary Care Provider Unavailabl e Reason for Visit * Reason Onset Date Comments oral surgery or Dr. Rey 08/30/2024 Encounter Details Date Type Department Care Team ([facility] st Contact Info) Description 08/30/2024 Telephone [facility] ADULT DENTAL [address] [place], [place] [phone] Peña Harrison, GONZALEZ [address] [place], [place] [phone] oral surgery or Dr. Rey Social History Tobacco Use Types Packs/Day Years Used Date Smoking Tobacco: Never Assessed Sex and Gender Information Value Date Recorded Sex Assigned at Male 06/29/2024 8:40 AM EST Legal Sex Male 8:34 AM EST Gender Identity Male 06/29/2024 8:40 AM EST Sexual Orientation Straight 06/29/2024 8: 40 AM EST documented as of this encounter Miscellaneous Notes * Telephone Encounter - Kenya Carbone - 08/30/2024 9:37 AM EST Patient called in stating that he has been on the oral surgeon wait list for a few months now. Uponverifying, he is not on the waiting list for oral surgery. He can have extraction with Dr. Rey on a or per her notes on a Thursday when Dr. Harrison is here. He is ok with being scheduled with Dr. Rey if she can see him sonner but her schedule is still not open and she specified that it should only be a if Dr. Harrison is not here. Unless Dr. Harrison has anything sooner. Otherwise heis waiting for call back from [facility] for Dr. Rey. This message sent to both [facility] and [facility]. documented in this encounter Plan of Treatment Upcoming Encounters Date Type Department Care Team ([facility] st Contact Info) Description 09/29/2024 2:00 PM EST Office Visit [facility] ADULT DENTAL [address] [place] [address] Soren Rey [address] [place] [address] documented as of this encounter Visit Diagnoses Not on filedocumented in this encounter
--- OUTSIDE RECORDS SUMMARY | 2024-09-26 18:33 | XMS_ITS | Encounter Summary ---
Author Organization [employer] Address [address] [place] [address] Care Team Providers Care Solution Maker Name Role Phone Unavailable Primary Care Provider Unavailabl e Reason for Visit * Reason Comments Dental Exam LR side pain Encounter Details Date Type Department Care Team (Late st Contact Info) Description 08/30/2024 3:30 PM EST Office Visit [facility] ADULT DENTAL [address] [place] [address] ReySoren flores [address] [place] [address] Social History Tobacco Use Types Packs/Day Years Used Date Smoking Tobacco: Never Assessed Sex and Gender Information Value Date Recorded Sex Assigned at Male 06/29/2024 8:40 AM EST Legal Sex Male 8:34 AM EST Gender Identity Male 06/29/2024 8:40 AM EST Sexual Orientation Straight 06/29/2024 8: 40 AM EST documented as of this encounter Progress Notes * Soren Rey - 08/30/2024 3:30 PM EST Images from the original note were not included. Dental procedures in this visit D0140 - LIMITED ORAL EVALUATION - PROBLEM FOCUSED 30 (Completed) Service provider: Soren Rey Billing provider: Soren Rey [id number] - INTRAORAL - PERIAPICAL FIRST RADIOGRAPHIC IMAGE (Completed) Service provider: Soren Rey Billing provider: Soren Rey [id number] - BITEWING - SINGLE RADIOGRAPHIC IMAGE (Completed) Service provider: Soren Rey Billing provider: Soren Rey [id number] - ADJUNCTIVE GENERAL SERVICES - PROFESSIONAL VISITS - CASE PRESENTATION, SUBSEQUENT TO DETAILED AND EXTENSIVE TREATMENT PLANNING (Completed) Service provider: Soren Rey Billing provider: Soren Rey Patient ID: Nikolai Amy is a 59 y.o. male. Time Out: Timeout Date: 08/30/24 (limited), Timeout Time: 1557 Location: [facility] Tooth: #30 Procedure: Exam and X-rays Verified the above with patient, assistant oceanographer, and provider. Confirmed via patient's chart, intraorally and by radiographs. Senior Microsoft Consultant: not applicable Chief Complaint Patient presents with Dental Exam LR side pain Medical Hx: Vitals: There were no vitals taken for this visit. History reviewed. No pertinent past medical history. Medications: Outpatient Encounter Medications as of 08/30/2024 Medication Sig Dispense Refill atorvastatin (Lipitor) 80 MG tablet Take 80 mg by mouth at bedtime. B-D UF III MINI PEN NEEDLES 31G X 5 MM misc USE ONE PEN NEEDLE SUBCUTANEOUSLY ONCE DAILY chlorhexidine (Peridex) 0.12 % solution Use 15 mL in the mouth or throat after breakfast and after evening meal for 16 days. 473 mL 0 citalopram (CeleXA) 20 MG tablet TAKE 3 TABLETS BY MOUTH ONCE DAILY FOR 30 DAYS FLUoxetine (PROzac) 40 MG capsule gabapentin (Neurontin) 800 MG tablet glipiZIDE (Glucotrol) 5 MG tablet Take 5 mg by mouth before breakfast and before evening meal. ibuprofen 400 MG tablet Take 1.5 tablets (600 mg) by mouth every 6 (six) hours if needed for moderate pain or mild pain for up to 7 days. 30 tablet 0 ibuprofen 800 MG tablet Jardiance 10 MG Take 10 mg by mouth Once per day. Lantus SoloStar 100 UNIT/ML pen INJECT 40 UNITS SUBCUTANEOUSLY IN THE EVENING lisinopril 10 MG tablet TAKE 1 TABLET BY MOUTH ONCE DAILY. (DOSE INCREASE) metFORMIN (Glucophage) 500 MG tablet Take 1,000 mg by mouth 2 times daily. Multiple Vitamin (multivitamin) capsule Take 1 capsule by mouth Once per day. omeprazole (PriLOSEC) [address] capsule simvastatin (Zocor) 40 MG tablet Take 40 mg by mouth at bedtime. Trulicity 3 MG/0.5ML solution auto-injector INJECT 3 MG (0.5 ML) SUBCUTANEOUSLY ONCE A WEEK No facility-administered encounter medications on file as of 08/30/2024. Chief complaint: I have pain again in my lower right back tooth Discussion: -1 PA, 1 BW taken today. -Pt mentioned in the previous appointment that pt consumes a lot of diet coke that has rotten pt's teeth. -Upon exam, grossly decayed #30 evident. -Pt was recommended extraction of #30 during last visit. -Pt got amoxicillin 500 mg last week from a facility [id number] but pt was not taking any medication for pain, so prescribed today. -Pt's oral hygiene is very poor. POI not followed by pt, so reviewed again today. -Pt asked pt never got a call from office for extraction with OS but pt was informed that appointment was requested with me and not OS. Pt was advised to contact net front end developer for more information on appointment dates as requested. -OHI reviewed. Emphasis was laid on maintaining good oral hygiene regimen at home along with regular visits to dentist. -Pt understood, was satisfied with our conversation and agreed with tx plan. -All questions answered. Soft tissue exam: WNL; OCS- negative Head and neck exam: Lymph Nodes, Lips, Palate, Buccal Mucosa, Floor of Mouth, Tongue, Tonsils, Alveolar Ridges, Oropharynx, Salivary Ducts, Vestibules - no abnormal findings. TMJ/Occlusal - TMJ is within normal limits. Oral Cancer Risk - low Perio risk- moderate-high Oral Hygiene Instruction Provided - Yes Oral Hygiene Instructions: Gentry two times daily, modified tineo technique, Floss daily, Electric toothbrush, Soft bristle toothbrush, Gentry Tongue. Referrals - None All questions answered and expressed understanding. Dismissed in good condition. Rx: Pt had Amoxicillin 500 mg at home and still finishing antibiotic course, so was not prescribed. Ibuprofen 600 mg every 6 hours prn as needed for pain for 7 days. Peridex NV: extraction #30 Structural Steel Worker Apprentice: Julissa Canseco Dentist: Dr. Soren Rey, DMD documented in this encounter Plan of Treatment Upcoming Encounters Date Type Department Care Team (Late st Contact Info) Description 09/29/2024 2:00 PM EST Office Visit [facility] ADULT DENTAL [address] [place] [address] Soren Rey [address] [place] [address] documented as of this encounter Procedures Procedure Name Priority Date/Time Associated Diagnosis Comments 30 LIMITED ORAL EVALUATION - PROBLEM FOCUSED Routine 08/30/2024 3:30 PM EST INTRAORAL - PERIAPICAL FIRST RADIOGRAPHIC IMAGE Routine 08/30/2024 3:30 PM EST CASE PRESENTATION, DETAILED AND EXTENSIVE TREATMENT PLANNING Routine 08/30/2024 3:30 PM EST BITEWING - SINGLE RADIOGRAPHIC IMAGE Routine 08/30/2024 3:30 PM EST documented in this encounter Visit Diagnoses Not on filedocumented in this encounter
--- OUTSIDE RECORDS SUMMARY | 2024-09-26 18:33 | XMS_ITS | Encounter Summary ---
Author Organization [employer] [facility] Address [address] [place] [address] Care Team Providers Care Forensic Toxicologist Name Role Phone Unavailable Primary Care Provider Unavailabl e Encounter Details Date Type Department Care Team (Late Contact Info) Description 09/22/2024 Telephone [facility] ADULT DENTAL [address] [place] [address] Soren Caballero [address] [place] [address] Social History Tobacco Use Types Packs/Day Years Used Date Smoking Tobacco: Never Assessed Sex and Gender Information Value Date Recorded Sex Assigned at Male 06/29/2024 8:40 AM EST Legal Sex Male 8:34 AM EST Gender Identity Male 06/29/2024 8:40 AM EST Sexual Orientation Straight 06/29/2024 8: 40 AM EST documented as of this encounter Miscellaneous Notes * Telephone Encounter - Soren Caballero - 09/22/2024 2:29 PM EST Medications prescribed today. Pt needs to contact pharmacy. Dr. CABALLERO documented in this encounter Plan of Treatment Upcoming Encounters Date Type Department Care Team (Late Contact Info) Description 09/29/2024 2:00 PM EST Office Visit [facility] ADULT DENTAL [address] [place] [address] Soren Caballero [address] [place] [address] documented as of this encounter Visit Diagnoses Not on filedocumented in this encounter
== END 2024-09-26 16:51 | disposition home or self-care (01) ==
PROVIDERS: PCP Physician Assistant; Visit Provider Physician Assistant
DX: L02.91 Cutaneous abscess, unspecified (principal)

== ENCOUNTER → 2024-09-26 15:42 | Outpatient (BNVA) | payer OTHER, SELFPAY | PROVIDERS: PCP Physician Assistant | DX: L02.91 Cutaneous abscess, unspecified (principal) | CPT/HCPCS: 99212 ==

== ENCOUNTER 2024-10-03 14:42 | Outpatient (AMB) | payer OTHER, SELFPAY ==
--- NOTE | 2024-10-03 15:25 | MHC.PC.OV ---
Vital Signs 10/03/24 15:31 Height 6 ft 1 in Weight 303 lb BMI 40.0 BP 130/82 Blood Pressure Location Lt brachial Position Sitting Pulse 93 Pulse Source Pulse Oximeter Pulse Oximetry (%) 97 Oxygen Delivery Method Room Air Intake Visit Reasons: f/u DMII/HLD - see comments Adjunct Faculty Instructor Required: No Accompanied by: Self / Same As Patient Allergies Sulfa (Sulfonamide Antibiotics) Allergy (Unknown, Verified 10/03/24 16:00) dizzyness,drymouth Medication List - Last Reconciled 10/03/24 by Matty Funez PA-C atorvastatin 80 mg PO BEDTIME 90 days blood pressure test kit-large As directed blood sugar diagnostic (FreeStyle Lite Strips) As directed three times a day blood-glucose meter (FreeStyle Lite Meter kit) As directed cephalexin 500 mg PO Q6H citalopram (Celexa) 60 mg (3 x 20 mg) PO DAILY 30 days CPAP (CPAP Machine/Device) As directed dulaglutide (Trulicity) 3 mg (0.5 mL) subcut QWEEK 4 weeks empagliflozin (Jardiance) 10 mg PO DAILY flash glucose scanning reader (LevelElevenStyle Mat 2 [place]) As directed flash glucose sensor (FreeStyle Mat 2 Sensor kit) As directed every 2 weeks gabapentin 800 mg PO QID 30 days ibuprofen mg PO insulin glargine (Lantus Solostar U-100 Insulin) 40 units (0.4 mL) subcut QPM 30 days lancets (FreeStyle Lancets) As directed three time a day lisinopril 10 mg PO DAILY 30 days metformin 1,000 mg (2 x 500 mg) PO BID omeprazole 20 mg PO DAILY 30 days pen needle, diabetic (BD Ultra-Fine Mini Pen Needle) 1 ea subcut DAILY 30 days Tobacco use date assessed: 10/03/24 Dental Screening Dental Screen Date: 11/19/23 HPI f/u DMII/HLD - see comments HPI Details Patient is a 59-year-old male here today for a follow-up visit.? Patient has a past medical history significant for morbid obesity, major depressive disorder, on controlled type 2 diabetes with polyneuropathy, hyperlipidemia, hypertension. Concerns--> He reports the presence of a cyst on his neck for two weeks, which has decreased in size over time but was initially too large for safe incision due to proximity to the jugular vein. Also reports he has been dental pain and was seen by a dentist and removed a tooth though still has pain. Does have antibiotic(cephalexin) though has not been taking medication. Otherwise denies any fevers or chills. . DMII: Patient's type 2 diabetes suboptimally controlled as he has not been following a particular diabetic diet. He is feeling much too depressed to take care of himself at this point thus will like to work on his depression. He admits to taking all of his medications Though does not monitor his blood sugars at all. He does have pretty severe polyneuropathy in his lower extremities to which he takes gabapentin for. .. Hyperlipidemia: Most recent lipid panel continues to show elevated total cholesterol and LDL. Again not following any particular diet. Already on highest potency statin. .. Hypertension: Blood pressure acceptable today in office.. He does not monitor blood pressure at home. Otherwise denies any chest discomfort, palpitations, headaches or dizziness. .. Depression: He reports he continues to have depression which hinders him from taking care of himself., he continues on Celexa 60 mg though feels it is not as effective as it once was. He is now willing to speak with a mental health med provider to help with managing his depression. PLAN: Will add on Abilify 2 mg SA adjunct therapy for his depression .. Obesity: He does understand his BMI is well over 30 and will work on being adherent to a diabetic diet to help him lose weight. .. Obstructive sleep apnea: Followed by [place] [facility]. He does use a CPAP machine on a nightly basis good effect on his sleep. Laboratory Tests 08/06/24 08/06/24 07:32 07:45 Hgb 16.4 Creatinine 0.91 Fasting Glucose 248 H Hemoglobin A1c % 11.0 H Urine Microalbumin < 5.0 [facility] Medical History COVID-19 Somnolence, daytime Obesity (BMI 30-39.9) Type 2 diabetes mellitus with diabetic polyneuropathy Type 2 diabetes with nephropathy Diabetes type 2, uncontrolled Hyperlipidemia LDL goal <100 Essential hypertension Morbid obesity Spondylosis of lumbar region without myelopathy or radiculopathy Lower back pain Neuropathy Diabetes Surgical History Hx of colonoscopy History of surgery History of eye surgery Family History Father Hypertension Diabetes Hepatitis Mother Heart disease CVD (cardiovascular disease) Social History Household Members: None Housing: Apartment Alcohol intake: never Patient Tobacco Use Status: Never used Tobacco e-Cigarette/Vaping Use: Never Used Second Hand Smoke Exposure: No service: No Current occupational status: employed Current occupation: SECURITY Current occupational exposures/hazards: No Cognitive needs: No Hearing needs: No Vision needs: No Questionnaire PHQ-9 Over the last 2 weeks, how often have you been bothered by any of the following problems? 1. Little interest or pleasure in doing things: several days 2. Feeling down, depressed, or hopeless: nearly every day 3. Trouble falling or staying asleep, or sleeping too much: more than half the days 4. Feeling tired or having little energy: nearly every day 5. Poor appetite or overeating: nearly every day 6. Feeling bad about yourself - or that you are a failure or have let yourself or your family down: nearly every day 7. Trouble concentrating on things, such as reading the newspaper or watching television: nearly every day 8. Moving or speaking so slowly that other people could have noticed. Or the opposite - being so fidgety or restless that you have been moving around a lot more than usual: more than half the days 9. Thoughts that you would be better off or of hurting yourself in some way: not at all Total score: 20 Depression Screening Interpretation: Positive Depression Screening Follow-up: Existing condition, New Medication prescribed and Community Mental Health Worker F/U Depression Screening Done: Yes 76192 - PHQ-9 Billing: Yes Source: Developed by Drs. Hermes Kaiser, Lalitha Navas, Arash Walters and colleagues, with an educational darcie from [employer]. Thrive Questionnaire Date Thrive assessed: 10/03/24 I am a: Patient What is your living situation today?: I have a steady place to live Within the past 12 months, did the food you bought not last and you didn't have the money to get more?: Never true Within the past 12 months, did you worry whether your food would run out before you got money to buy more?: Never true Do you have trouble paying for medicines?: No Do you have trouble getting transportation to medical appointments?: No Do you have trouble paying your heating and electricity bill?: No Do you have trouble taking care of your child, family member or friend?: No Do you have trouble with day-to-day activities such as bathing, preparing meals, shopping, managing finances, etc.?: No Are you currently unemployed and looking for a job?: No Are you interested in more education?: No Please select the resources that you would like help with: None Currently or been in a relationship where the following occur: No concerns reported THRIVE Score: 0 AUDIT C Alcohol Use Questionnaire (AUDIT-C) 1. How often do you have a drink containing alcohol?: Never Total Score: 0 YODIT-7 AMB Questionnaire YODIT-7 Date YODIT - 7 assessed: 10/03/24 Feeling nervous, anxious, or on edge: 1 = Several days Not being able to stop or control worryin = Several days Worrying too much about different things: 2 = More than half the days Trouble relaxin = More than half the days Being so restless that it is hard to sit still: 1 = Several days Becoming easily annoyed or irritable: 3 = Nearly every day Feeling afraid as if something awful might happen: 0 = Not at all Total YODIT-7 score (0-4 normal; 5-9 mild; 10-14 moderate; 15-21 severe): 10 Source: Developed by Drs. Hermes Kaiser, Lalitha Navas, Arash Walters and colleagues, with an educational darcie from [employer]. YODIT-7 Assessment Billing YODIT-7 Assessment Tool: YODIT-7 Assessment 66996 Review of Systems Const Denies headache(s) Eyes Denies loss of vision ENT Denies vertigo, Denies dizziness, Denies headache(s) and Denies sore throat Card Denies chest pain, Denies leg edema and Denies lightheadedness Resp Denies cough, Denies hemoptysis and Denies wheezing GI Denies abdominal pain, Denies melena, Denies constipation, Denies diarrhea and Denies vomiting Denies dysuria, Denies urinary frequency and Denies urinary urgency Musc Denies arthralgias, Denies joint swelling, Denies numbness and Denies tingling Neuro Denies Abnormal speech present, Denies behavioral changes, Denies vertigo, Denies dizziness, Denies headache(s), Denies loss of vision, Denies memory loss, Denies numbness and Denies tingling Psych Denies anxiety, Denies behavioral changes, Denies depression, Denies memory loss and Denies panic attacks Sudarshan/Lymph Denies easy bleeding and Denies easy bruising Aller/Immun Denies wheezing Physical exam (Primary Care) Vital Signs: Last Vital Signs Pulse 93 10/03/24 15:31 BP 130/82 10/03/24 15:31 Pulse Ox 97 10/03/24 15:31 Oxygen Delivery Method Room Air 10/03/24 15:31 BMI result Body Mass Index 40.0 Tobacco/Smoking Status: Tobacco use Status Tobacco use date assessed 10/03/24 10/03/24 15:39 Patient Tobacco Use Status Never used Tobacco 10/03/24 15:27 e-Cigarette/Vaping Use Never Used 10/03/24 15:27 PHQ-9: PHQ-9 Score PHQ-9: Total score 20 10/03/24 16:31 Depression Screening Interpretation: Positive Depression Screening Follow-up: Existing condition, New Medication prescribed and Community Mental Health Worker F/U Thrive Assessment: Date of Thrive Assessment Date Thrive assessed 10/03/24 10/03/24 15:27 Currently or been in a relationship where the following occur: No concerns reported Const General: healthy appearing, no acute distress, alert and awake Nutritional Appearance: well nourished Orientation/consciousness: oriented to person, oriented to place and oriented to time [facility] Other: Ears: TM's normal bilaterally General nose exam: Normal nasal mucous membranes and turbinates present Eyes Conjunctivae: conjunctivae normal Sclerae: sclerae normal Pupils: Equal, round and reactive pupils present Neck Neck: Yes no lymphadenopathy and Yes no JVD Thyroid: Thyroid normal Carotids: no bruits Resp Effort & Inspection: normal respiratory effort and not tachypneic Auscultation: no crackles, no rales, no rhonchi and no wheezes Cardio Rate: regular rate Rhythm: regular rhythm Heart sounds: no murmurs and normal S1 and S2 GI Palpation (GI): Soft to palpation, nontender, no hepatomegaly and no splenomegaly Auscultation: normal bowel sounds Skin General skin exam: no rashes or lesions noted and dry skin Neuro General: oriented to person, oriented to place and oriented to time Cranial nerves: Yes Equal, round and reactive pupils present Speech: No Abnormal speech present Gait exam (Neuro): Normal gait present Motor exam (neuro): no tremor noted Extrem Right upper extremity: full ROM Left upper extremity: full ROM Right lower extremity: full ROM; no edema Left lower extremity: full ROM; no edema Psych Mental Status: mental status grossly normal Speech and movement: Normal speech and movement present Affect: normal affect Attitude: cooperative Thought process: Normal thought process present Coding Level of Care Code Est Pt Level 4 (57116) Diagnoses Uncontrolled type 2 diabetes mellitus with hyperglycemia E11.65 Glycemic state: with hyperglycemia Epidermal inclusion cyst L72.0 MDD (major depressive disorder), recurrent episode, moderate F33.1 Class 3 obesity E66.813 Pain, dental K08.89 Mixed hyperlipidemia E78.2 Hyperlipidemia type: mixed hyperlipidemia Painful diabetic neuropathy E11.40 Additional Codes YODIT-7 Assessment Billing - YODIT-7 Assessment Tool: YODIT-7 Assessment 70079 ([id number]) PHQ-9 - 47516 - PHQ-9 Billing: Yes ([id number]) Assessment & Plan Assessment & Plan (1) Diabetes type 2, uncontrolled: Code(s): E11.65 - Type 2 diabetes mellitus with hyperglycemia Category: Medical Qualifiers: Glycemic state: with hyperglycemia Qualified Code(s): E11.65 - Type 2 diabetes mellitus with hyperglycemia Plan: Patient's type 2 diabetes uncontrolled. Today's A1c at 11. He continues to use his medications though is not regularly checking his blood sugars or following any kind of type 2 diabetic diet. We discuss perhaps seeing dietary aid though he is just considering at this time. He does have pretty severe diabetic neuropathy in his lower extremities to which he is managing with gabapentin. (2) Epidermal inclusion cyst: Code(s): L72.0 - Epidermal cyst Category: Medical Plan: Please see picture section. Will try to set up with general surgeon for possible surgical removal of large cyst neck. Will supply patient with antibiotic (3) MDD (major depressive disorder), recurrent episode, moderate: Code(s): F33.1 - Major depressive disorder, recurrent, moderate Category: Medical Plan: As per HPI patient continues to suffer with depression. He reports some his triggers to his depression it was recent passing of his sister and also not really liking his job. He continues on high dose of Celexa 60 mg though feels it was not effective. He is willing to use adjunctive therapy with a Abilify 2 mg. Will try to set him up with outpatient psychiatry to help manage and give recommendations on controlling his depression. (4) Class 3 obesity: Code(s): E66.813 - Obesity, class 3 Category: Medical Plan: Patient does understand his BMI is over 40. (5) Pain, dental: Code(s): K08.89 - Other specified disorders of teeth and supporting structures Category: Medical Plan: Patient recently had a tooth removal and continues to pain and swelling in the area. Will supply patient with the antibiotic and short-term script for pain medication. He will follow up with his dentist (6) HLD (hyperlipidemia): Code(s): E78.5 - Hyperlipidemia, unspecified Category: Medical Qualifiers: Hyperlipidemia type: mixed hyperlipidemia Qualified Code(s): E78.2 - Mixed hyperlipidemia Plan: Patient's recent lipid panel showing improvement though LDL remains above goal of 100. He continues on highest dose statin therapy though not clear if he is actually staying consistent with the medication. Goal LDL to be below 100 (7) Painful diabetic neuropathy: Code(s): E11.40 - Type 2 diabetes mellitus with diabetic neuropathy, unspecified Category: Medical Plan: Continues to gabapentin. He does understand he needs to get his sugars better controlled to help his diabetic neuropathy. Did consider pain management referral for topical diabetic neuropathy treatment Orders: Referrals General Surgery Referral L72.0 - Epidermal cyst Psychiatry Outpatient Consultation Service K08.89 - Other specified disorders of teeth and supporting structures Medications: New aripiprazole 2 mg PO DAILY 30 days 30 tabs 1RF F33.1 - Major depressive disorder, recurrent, moderate doxycycline monohydrate 100 mg PO BID 7 days 14 caps 0RF K08.89 - Other specified disorders of teeth and supporting structures acetaminophen-codeine 300-30 mg 1 tab PO Q8H 4 days PRN 12 tabs 0RF pain K08.89 - Other specified disorders of teeth and supporting structures Patient Instructions: Goal: A1c to be below 7.0, LDL to be below 100 Barriers: Depression, adherence to physical activity and healthy eating habits
[2024-10-03 15:31] VITALS: BP 130/82; PULSE 93; O2SAT 97; BMI 40.0
--- OUTSIDE RECORDS SUMMARY | 2024-10-03 16:49 | XMS_ITS | Encounter Summary ---
Author Organization [employer] Address [address] [facility] [address] [place] [address] Care Team Providers Care Joint Sealer Name Role Phone Unavailable Primary Care Provider Unavailabl e Reason for Visit * Reason Onset Date Comments oral surgery or Dr. Rey 08/30/2024 Encounter Details Date Type Department Care Team ([facility] st Contact Info) Description 08/30/2024 Telephone [facility] [address] [place], [place] [id number] Peña Harrison, GONZALEZ [address] [place], [place] [phone] oral surgery or Dr. Rey Social History [...] Otherwise heis waiting for call back from [facility] for Dr. Rey. [facility] documented in this encounter Plan of Treatment Not on file documented as of this encounter Visit Diagnoses Not on filedocumented in this encounter
--- OUTSIDE RECORDS SUMMARY | 2024-10-03 16:49 | XMS_ITS | Clinical Summary ---
Author Organization [employer] Address [address] [facility] [address] [place] [address] Care Team Providers Care Food Preparation Worker Name Role Phone Unavailable Primary Care Provider [...] MINI PEN NEEDLES 31G X 5 MM [facility] USE ONE PEN NEEDLE SUBCUTANEOUSLY ONCE DAILY [...] 40 mg by mouth at bedtime. Active doxycycline (Vibra-Tabs) 100 MG tablet Take 1 tablet by mouth 2 times daily. 09/27/19 25 Active cephalexin (Keflex) 500 MG capsule Take 1 capsule by mouth every 6 (six) hours. 09/27/19 25 Active ibuprofen 400 MG tablet Take 1.5 tablets (600 mg) by mouth every 6 (six) hours if needed for moderate pain or mild pain for up to 7 days. 30 tablet 08/30/19 25 025 chlorhexidine (Peridex) 0.12 % solution Use 15 mL in the mouth or throat after breakfast and after evening meal for 16 days. 473 mL 08/30/19 25 025 amoxicillin (Amoxil) 500 MG capsule Take 1 capsule (500 mg) by mouth every 8 (eight) hours for 7 days. 21 capsule 09/22/19 25 025 ibuprofen 400 MG tablet Take 1 tablet (400 mg) by mouth every 6 (six) hours if needed for mild pain for up to 7 days. 28 tablet 09/22/19 25 025 Active Problems No known active problems Encounters Date Type Department Care Team Description 09/29/2024 2:00 PM EST Office Visit [facility] [address] [place] [address] Soren Rey 09/22/2024 Telephone [facility] [address] [place] [address] Soren Rey 08/30/2024 3:30 PM EST Office Visit [facility] [address] [place] [address] Soren Rey 08/30/2024 Telephone [facility] [address] [place] [address] Peña Harrison DMD oral surgery or Dr. Rey from Last 3 Months Social History Tobacco Use Types Packs/Day Years Used Date Smoking Tobacco: Never Assessed Sex and Gender Information Value Date Recorded Sex Assigned at Male 06/29/2024 8:40 AM EST Legal Sex Male 8:34 AM EST Gender Identity Male 06/29/2024 8:40 AM EST Sexual Orientation Straight 06/29/2024 8: 40 AM EST Last Filed Vital Signs Vital Sign Reading Time Taken Comments Blood Pressure 110/80 09/29/2024 2:39 PM EST Pulse - - Temperature - - Respiratory Rate - - Oxygen Saturation - - Inhaled Oxygen Concentration - - Weight - - Height - - Body Mass Index - - Plan of Treatment Health Maintenance Due Date Last Done Comments [...] PCV) 06/24/2019 06/24/2018 COVID-19 Vaccine ( - 2023- season) 2024 Influenza Vaccine (#1) 2024 , [...] Procedure Name Priority Date/Time Associated Diagnosis Comments CASE PRESENTATION, DETAILED AND EXTENSIVE TREATMENT PLANNING Routine 09/29/2024 2:00 PM EST 30 EXTRACTION, ERUPTED TOOTH OR EXPOSED ROOT (ELEVATION/FORCEPS REMOVAL) Routine 09/29/2024 2:00 PM EST 30 LIMITED ORAL EVALUATION - PROBLEM FOCUSED Routine 08/30/2024 3:30 PM EST CASE PRESENTATION, DETAILED AND EXTENSIVE TREATMENT PLANNING Routine 08/30/2024 3:30 PM EST BITEWING - SINGLE RADIOGRAPHIC IMAGE Routine 08/30/2024 3:30 PM EST INTRAORAL - PERIAPICAL FIRST RADIOGRAPHIC IMAGE Routine 08/30/2024 3:30 PM EST from Last 3 [place] [address] DENTAL - HSN PARTIAL (MEDICAID)
--- OUTSIDE RECORDS SUMMARY | 2024-10-03 16:49 | XMS_ITS | Encounter Summary ---
Author Organization [employer] Address [address] [facility] [address] [place] [address] Care Team Providers Care Chain Maker Name Role Phone Unavailable Primary Care Provider Unavailabl e Encounter Details Date Type Department Care Team (Late st Contact Info) Description 09/22/2024 Telephone [facility] [address] [place] [address] Soren Caballero [address] [place] [address] Social History Tobacco Use Types Packs/Day Years [...]
--- OUTSIDE RECORDS SUMMARY | 2024-10-03 16:49 | XMS_ITS | Encounter Summary ---
Author Organization [employer] Address [address] [facility] 7 [place] [address] Care Team Providers Care Ground Crewman Aircraft Support Name Role Phone Unavailable Primary Care Provider Unavailabl e Reason for Visit * Reason Comments Extraction #30 Encounter Details Date Type Department Care Team ([facility] st Contact Info) Description 09/29/2024 2:00 PM EST [facility] [address] [place] [address] Soren Rey [address] [place] [address] Social History Tobacco Use Types Packs/Day Years Used Date Smoking Tobacco: Never Assessed Sex and Gender Information Value Date Recorded Sex Assigned at Male 06/29/2024 8:40 AM EST Legal Sex Male 8:34 AM EST Gender Identity Male 06/29/2024 8:40 AM EST Sexual Orientation Straight 06/29/2024 8: 40 AM EST documented as of this encounter Last Filed Vital Signs Vital Sign Reading Time Taken Comments Blood Pressure 110/80 09/29/2024 2:39 PM EST Pulse - - Temperature - - Respiratory Rate - - Oxygen Saturation - - Inhaled Oxygen Concentration - - Weight - - Height - - Body Mass Index - - documented in this encounter Progress Notes * Soren Rey - 09/29/2024 2:00 PM EST Patient ID: Nikolai Reyes is a 59 y.o. male. Time Out: Timeout Date: 09/29/24 (ext #30), Timeout Time: 209 Location: [facility] Tooth: #30 Procedure: Extraction Verified the above with patient, veterinarian assistant, and provider. Confirmed via patient's chart, intraorally and by radiographs. Container Finisher: not applicable Chief Complaint Patient presents with Extraction #30 Medical Hx: Vitals: Blood pressure 110/80. Past Medical History: Diagnosis Date Diabetes mellitus ([facility]) Medications: Outpatient Encounter Medications as of 09/29/2024 Medication Sig Dispense Refill cephalexin (Keflex) 500 MG capsule Take 1 capsule by mouth every 6 (six) hours. doxycycline (Vibra-Tabs) 100 MG tablet Take 1 tablet by mouth 2 times daily. amoxicillin (Amoxil) 500 MG capsule Take 1 capsule (500 mg) by mouth every 8 (eight) hours for 7 days. 21 capsule 0 atorvastatin (Lipitor) 80 MG tablet Take 80 mg by mouth at bedtime. B-D UF III MINI PEN NEEDLES 31G X 5 MM [facility] USE ONE PEN NEEDLE SUBCUTANEOUSLY ONCE DAILY [] chlorhexidine (Peridex) 0.12 % solution Use 15 [...] evening meal. ibuprofen 400 MG tablet Take 1 tablet (400 mg) by mouth every 6 (six) hours if needed for mild painfor up to 7 days. 28 tablet 0 ibuprofen 800 MG tablet Jardiance [...] facility-administered encounter medications on file as of 09/29/2024. Consent Obtained: The risks, benefits, indications, potential complications, and alternatives were explained to the patient and informed consent was obtained with good understanding. Treatment Provided: Dental procedures in this visit D7140 - EXTRACTION, ERUPTED TOOTH OR EXPOSED ROOT (ELEVATION/FORCEPS REMOVAL) 30 (Completed) Service provider: Soren Rey Billing provider: Soren Rey D9450 - CASE PRESENTATION, DETAILED AND EXTENSIVE TREATMENT PLANNING (Completed) Service provider: Soren Rey Billing provider: Soren Rey Diagnosis: Non-restorable tooth #30 Topical: 20% Benzocaine Anesthesia: 4% Septocaine (Articaine) w/ 1:200,000 epinephrine Number of Cartridges: 3 Injection Type: Buccal infiltration, Palatal infiltration, and Inferior alveolar nerve block Confirmed profound anesthesia. Pharyngeal curtain and bite block placed. Removed tooth with elevators and forceps. Apices intact. Surgical Extraction: N/A Socket curetted & irrigated with sterile water. Compressed alveolar bone. Sutures: None Needed All adjacent teeth intact. Hemostasis achieved. Complications: none Written and verbal post-op instructions given. Patient discharged in stable condition; ambulatory, alert, and oriented. Rx: pt had antibiotics and pain medication, so were not prescribed. NV: comp exam [employer] Fin[employer]: Julissa Canseco Dentist: Dr. Soren Rey, DMD documented in this encounter Plan of Treatment Not on file documented as of this encounter Procedures Procedure Name Priority Date/Time Associated Diagnosis Comments 30 EXTRACTION, ERUPTED TOOTH OR EXPOSED ROOT (ELEVATION/FORCEPS REMOVAL) Routine 09/29/2024 2:00 PM EST CASE PRESENTATION, DETAILED AND EXTENSIVE TREATMENT PLANNING Routine 09/29/2024 2:00 PM EST documented in this encounter Visit Diagnoses Not on filedocumented in this encounter
== END 2024-10-03 16:33 | disposition home or self-care (01) ==
PROVIDERS: PCP Physician Assistant; Visit Provider Physician Assistant
DX: E11.65 Type 2 diabetes mellitus with hyperglycemia (principal); F33.1 Major depressive disorder, recurrent, moderate; E11.40 Type 2 diabetes mellitus with diabetic neuropathy, unspecified; Z68.41 Body mass index [BMI] 40.0-44.9, adult; E66.813 Obesity, class 3; L72.0 Epidermal cyst; K08.89 Other specified disorders of teeth and supporting structures; E78.2 Mixed hyperlipidemia

== ENCOUNTER → 2024-10-03 14:42 | Outpatient (BNVA) | payer OTHER, SELFPAY | PROVIDERS: PCP Physician Assistant; Visit Provider Physician Assistant | DX: E11.65 Type 2 diabetes mellitus with hyperglycemia (principal); L72.0 Epidermal cyst; F33.1 Major depressive disorder, recurrent, moderate; E66.813 Obesity, class 3; K08.89 Other specified disorders of teeth and supporting structures; E78.2 Mixed hyperlipidemia; E11.40 Type 2 diabetes mellitus with diabetic neuropathy, unspecified; Z68.41 Body mass index [BMI] 40.0-44.9, adult; Z71.3 Dietary counseling and surveillance | CPT/HCPCS: 96127; 99212 ==

== ENCOUNTER 2024-10-31 11:15 | Outpatient (AMB) | payer OTHER, SELFPAY ==
--- NOTE | 2024-10-31 11:12 | A.OFFPC_ITS ---
Intake Visit Reasons: f/u depression ( telehealth) Administrator Pesticide Required: No Information Interpreted: non-clinical & clinical Features Editor: Not Required per policy Accompanied by: Self / Same As Patient Allergies Sulfa (Sulfonamide Antibiotics) Allergy (Unknown, Verified 10/31/24 11:30) dizzyness,drymouth Medication List - Last Reconciled 10/31/24 by Matty Funez PA-C acetaminophen-codeine 300-30 mg 1 tab PO Q8H PRN 4 days aripiprazole 2 mg PO DAILY 30 days atorvastatin 80 mg PO BEDTIME 90 days blood pressure test kit-large As directed blood sugar diagnostic (FreeStyle Lite Strips) As directed three times a day blood-glucose meter (FreeStyle Lite Meter kit) As directed citalopram (Celexa) 60 mg (3 x 20 mg) PO DAILY 30 days CPAP (CPAP Machine/Device) As directed dulaglutide (Trulicity) 3 mg (0.5 mL) subcut QWEEK 4 weeks empagliflozin (Jardiance) 10 mg PO DAILY flash glucose scanning reader (US DataworksStyle Mat 2 [place]) As directed flash glucose sensor (FreeStyle Mat 2 Sensor kit) As directed every 2 weeks gabapentin 800 mg PO QID 30 days ibuprofen mg PO insulin glargine (Lantus Solostar U-100 Insulin) 40 units (0.4 mL) subcut QPM 30 days lancets (FreeStyle Lancets) As directed three time a day lisinopril 10 mg PO DAILY 30 days metformin 1,000 mg (2 x 500 mg) PO BID omeprazole 20 mg PO DAILY 30 days pen needle, diabetic (BD Ultra-Fine Mini Pen Needle) 1 ea subcut DAILY 30 days Tobacco use date assessed: 10/03/24 Dental Screening Dental Screen Date: 10/31/24 Did you have a dental visit in the last 12 months?: Yes Did you have a dental problem in the last 6 months where you did not have access to dental care?: No Was dental information given to patient?: Patient has dentist HPI f/u depression ( telehealth) HPI Details Patient is a 59-year-old male being evaluated today via telephone. At last visit we discussed his depression to which was worsening and we agreed on adding Abilify as an augmented to his high dose of Celexa. He does report feeling bit better. He does admit to some mild side effects such as restlessness and constipation though are tolerable. He would like to continue current dose of Abilify 2 mg as he feels noticeable effect on his depression. 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 Otherwise he feels well emotionally. [facility] Medical History COVID-19 Somnolence, daytime Obesity (BMI 30-39.9) Type 2 diabetes mellitus with diabetic polyneuropathy Type 2 diabetes with nephropathy Diabetes type 2, uncontrolled Hyperlipidemia LDL goal <100 Essential hypertension Morbid obesity Spondylosis of lumbar region without myelopathy or radiculopathy Lower back pain Neuropathy Diabetes Surgical History Hx of colonoscopy History of surgery History of eye surgery Family History Father Hypertension Diabetes Hepatitis Mother Heart disease CVD (cardiovascular disease) Social History Household Members: None Housing: Apartment Alcohol intake: never Patient Tobacco Use Status: Never used Tobacco e-Cigarette/Vaping Use: Never Used Second Hand Smoke Exposure: No service: No Current occupational status: employed Current occupation: SECURITY Current occupational exposures/hazards: No Cognitive needs: No Hearing needs: No Vision needs: No Questionnaire Thrive Questionnaire Date Thrive assessed: 10/03/24 YODIT-7 AMB Questionnaire YODIT-7 Date YODIT - 7 assessed: 10/03/24 Source: Developed by Drs. Hermes Kaiser, Lalitha Navas, Arash Walters and colleagues, with an educational darcie from [employer]. Review of Systems Const Denies headache(s) Eyes Denies loss of vision ENT Denies vertigo, Denies dizziness, Denies headache(s) and Denies sore throat Card Denies chest pain, Denies leg edema and Denies lightheadedness Resp Denies cough, Denies hemoptysis and Denies wheezing GI Denies abdominal pain, Denies melena, Reports constipation, Denies diarrhea and Denies vomiting Denies dysuria, Denies urinary frequency and Denies urinary urgency Musc Denies arthralgias, Denies joint swelling, Denies numbness and Denies tingling Neuro Denies behavioral changes, Denies vertigo, Denies dizziness, Denies headache(s), Denies loss of vision, Denies memory loss, Denies numbness and Denies tingling Psych Reports abnormal sleep pattern, Denies anxiety, Denies behavioral changes, Reports depression, Denies memory loss and Denies panic attacks Sudarshan/Lymph Denies easy bleeding and Denies easy bruising Aller/Immun Denies wheezing Physical exam (Primary Care) Tobacco/Smoking Status: Tobacco use Status Tobacco use date assessed 10/03/24 10/31/24 11:14 Patient Tobacco Use Status Never used Tobacco 10/31/24 11:14 e-Cigarette/Vaping Use Never Used 10/31/24 11:14 Thrive Assessment: Date of Thrive Assessment Date Thrive assessed 10/03/24 10/31/24 11:14 Telehealth Telehealth Telehealth Platform: Telephone Location of provider rendering services: practice address Location of patient: address on file Patient Identification confirmed using: Name, : Yes Telehealth method: voice only Patient verbally consented to treatment: Yes Patient verbally consented to billing insurance company: Yes Patient informed of any privacy concerns related to visit: Yes Minutes spent on Phone/Video with Pt.: 11 Coding Level of Care Code Tele Est Pt Level 3 (07225) Diagnoses MDD (major depressive disorder), recurrent episode, moderate F33.1 Assessment & Plan Assessment & Plan (1) MDD (major depressive disorder), recurrent episode, moderate: Code(s): F33.1 - Major depressive disorder, recurrent, moderate Category: Medical Plan: As per HPI, the addition of Abilify had a noticeable effect on his mood and depression. He would like to continue current dose of Abilify. He had has noted mild side effects from the Abilify including restlessness and constipation though are manageable. Will continue current dose of Abilify and Celexa at this time. Orders: Orders Hemoglobin A1c Today E11.65 - Type 2 diabetes mellitus with hyperglycemia Complete Blood Count no Diff Today E11.65 - Type 2 diabetes mellitus with hyperglycemia Lipid Panel Today E78.2 - Mixed hyperlipidemia Comprehensive [place]. Panel Fast Today E11.65 - Type 2 diabetes mellitus with hyperglycemia Prostate Specific Antigen Scr Today E11.65 - Type 2 diabetes mellitus with hyperglycemia, Z12.5 - Encounter for screening for malignant neoplasm of prostate
--- OUTSIDE RECORDS SUMMARY | 2024-10-31 13:31 | XMS_ITS | Encounter Summary ---
Author Organization [employer] Address [address] [place] [address] Care Team Providers Care Streetcar Starter Name Role Phone Unavailable Primary Care Provider Unavailabl e Reason for Visit * Reason Onset Date Comments oral surgery or Dr. Rey 08/30/2024 Encounter Details Date Type Department Care Team ([facility] st Contact Info) Description 08/30/2024 Telephone [facility] ADULT DENTAL [address] [place], [place] [phone] Peña Harrison, GONZALEZ [address] [place] [address] Rey Social History [...] Otherwise heis waiting for call back from [facility] for Dr. Rey. This message [facility] documented in this encounter Plan of Treatment Not on file documented as of this encounter Visit Diagnoses Not on filedocumented in this encounter
--- OUTSIDE RECORDS SUMMARY | 2024-10-31 13:31 | XMS_ITS | Clinical Summary ---
Author Organization [employer] Address [address] [place] [address] Care Team Providers Care Tenterer Name Role Phone Unavailable Primary Care Provider Unavailabl e Allergies Active Allergy Reactions Criticality Noted Date Comments Sulfa Antibiotics Other 07/21/2016 Medications atorvastatin (Lipitor) 80 MG tablet Take 80 mg by mouth at bedtime. 4 Active citalopram (CeleXA) 20 MG tablet TAKE 3 TABLETS BY MOUTH ONCE DAILY FOR 30 DAYS 4 Active Trulicity 3 MG/0.5ML solution auto-injector INJECT 3 MG (0.5 ML) SUBCUTANEOUSLY ONCE A WEEK 4 Active Jardiance 10 MG Take 10 mg by mouth Once per day. 4 Active FLUoxetine (PROzac) 40 MG capsule 8 Active gabapentin (Neurontin) 800 MG tablet 4 Active glipiZIDE (Glucotrol) 5 MG tablet Take 5 mg by mouth before breakfast and before evening meal. Active ibuprofen 800 MG tablet 8 Active Lantus SoloStar 100 UNIT/ML pen INJECT 40 UNITS SUBCUTANEOUSLY IN THE EVENING 4 Active B-D UF III MINI PEN NEEDLES 31G X 5 MM [facility] USE ONE PEN NEEDLE SUBCUTANEOUSLY ONCE DAILY 4 Active lisinopril 10 MG tablet TAKE 1 TABLET BY MOUTH ONCE DAILY. (DOSE INCREASE) Active metFORMIN (Glucophage) 500 MG tablet Take 1,000 mg by mouth 2 times daily. Active Multiple Vitamin (multivitamin) capsule Take 1 capsule by mouth Once per day. Active omeprazole (PriLOSEC) [address] capsule 4 Active simvastatin (Zocor) 40 MG tablet Take 40 mg by mouth at bedtime. Active doxycycline (Vibra-Tabs) 100 MG tablet Take 1 tablet by mouth 2 times daily. 5 Active cephalexin (Keflex) 500 MG capsule Take 1 capsule by mouth every 6 (six) hours. 5 Active Active Problems No known active problems Encounters Date Type Department Care Team Description 09/29/2024 2:00 PM EST Office Visit [facility] ADULT DENTAL [address] [place] [address] Soren Rey 09/22/2024 Telephone [facility] [address] [place] [address] Soren Rey 08/30/2024 3:30 PM EST Office Visit [facility] [address] [place] [address] Soren Rey 08/30/2024 Telephone [facility] [address] [place] [address] Peña Harrison DMD oral surgery or Dr. [...] 2 - PCV) 06/24/2019 06/24/2018 COVID-19 Vaccine (1 - 2023- season) 2024 Influenza Vaccine (#1) [...] PM EST from Last 3 [place] [address] DENTAL - HSN PARTIAL (MEDICAID)
== END 2024-10-31 11:57 | disposition home or self-care (01) ==
LOC: HO.HMCH 11:15
PROVIDERS: PCP Physician Assistant; Visit Provider Physician Assistant
DX: F33.1 Major depressive disorder, recurrent, moderate (principal)

== ENCOUNTER → 2024-10-31 11:15 | Outpatient (BNVA) | payer MEDICAID, SELFPAY | PROVIDERS: PCP Physician Assistant; Visit Provider Physician Assistant ==

== ENCOUNTER 2024-12-31 07:31 | Outpatient (REF) | payer OTHER, SELFPAY ==
--- OUTSIDE RECORDS SUMMARY | 2024-12-31 07:34 | XMS_ITS | Encounter Summary ---
Author Organization [employer] Address [address] [facility] [address] [place] [address] Care Team Providers Care Product Assembler Name Role Phone Unavailable Primary Care Provider Unavailabl e Reason for Visit * Reason Onset Date Comments oral surgery or Dr. Rey 08/30/2024 Encounter Details Date Type Department Care Team ([facility] st Contact Info) Description 08/30/2024 Telephone [facility] ADULT DENTAL [address] [place], [place] [phone] Peña Harrison, GONZALEZ [address] [place], [place] [phone] oral surgery or Dr. Rey Social History [...] it should only be a if Dr. Harirson is not here. Unless Dr. Harrison has anything sooner. Otherwise heis waiting for call back from [facility] for Dr. Rey. This message sent [facility] documented in this encounter Plan of Treatment Not on file documented as of this encounter Visit Diagnoses Not on filedocumented in this encounter
[2024-12-31 08:51] LABS: Hematocrit 47.3 % (42.0-52.0); Hemoglobin 15.2 g/dl (14.0-18.0); Mean Corpuscular HGB Conc 32.1 g/dl (31.0-36.0); Mean Corpuscular Hemoglobin 27.1 pg (27.0-33.0); Mean Corpuscular Volume 84.3 fL (80.0-98.0); Mean Platelet Volume 9.9 fL (9.4-12.4); Platelet Count 265 X10*3/uL (160-400); Red Blood Count 5.61 X10*6/uL (4.60-5.80); White Blood Count 8.4 X10*3/uL (4.8-10.8)
[2024-12-31 09:12] LABS: Estimated Average Glucose 272 mg/dL; Hemoglobin A1c % 11.1 % (<6.0)
[2024-12-31 09:31] LABS: Alanine Aminotransferase 60 U/L (0-40); Albumin Level 4.1 g/dL (3.5-5.0); Alkaline Phosphatase 91 U/L (39-117); Anion Gap 13 (12-20); Aspartate Amino Transferase 30 U/L (5-37); Bilirubin Total 0.4 mg/dL (0.0-1.0); Blood Urea Nitrogen 25 mg/dL (9-16); Calcium 9.4 mg/dL (8.4-10.2); Carbon Dioxide 26 mmol/L (22-29); Chloride 101 mmol/L (96-108); Cholesterol 221 mg/dL (<200); Estimated Glomerular Filt Rate > 60; Glucose Fasting 268 mg/dL (60-99); HDL Cholesterol 35 mg/dL (>40); LDL Cholesterol Calculated 135 mg/dL (<100); Potassium 4.6 mmol/L (3.3-5.1); Sodium 135 mmol/L (135-145); Total Protein 7.4 g/dL (6.5-8.0); Triglycerides 255 mg/dL (<150)
[2024-12-31 09:49] LABS: Prostate Specific Antigen Scr 1.28 ng/mL (<0.05-4.0)
== END 2024-12-31 07:32 | disposition home or self-care (01) ==
LOC: HO.LAB 07:31
PROVIDERS: PCP Physician Assistant; Visit Provider Physician Assistant
DX: Z12.5 Encounter for screening for malignant neoplasm of prostate (principal); E11.65 Type 2 diabetes mellitus with hyperglycemia; E78.2 Mixed hyperlipidemia
CPT/HCPCS: 36415; 80053; 80061; 83036; 84153; 85027

== ENCOUNTER 2025-01-03 14:25 | Outpatient (AMB) | payer OTHER, SELFPAY ==
[2025-01-03 14:34] VITALS: BP 118/68; PULSE 88; TEMP 36.2; O2SAT 99; BMI 40.5
--- NOTE | 2025-01-03 14:34 | MHC.PC.OV ---
Vital Signs 01/03/25 14:34 Height 6 ft 1 in Weight 307 lb BMI 40.5 BP 118/68 Blood Pressure Location Lt brachial Position Sitting Pulse 88 Pulse Source Pulse Oximeter Temp 97.1 F Temp Source Temporal Artery Scan Pulse Oximetry (%) 99 Oxygen Delivery Method Room Air Intake Visit Reasons: DMII Rn Hemodialysis Required: No Information Interpreted: non-clinical & clinical Tree Specialist: Not Required per policy Accompanied by: Self / Same As Patient Allergies Sulfa (Sulfonamide Antibiotics) Allergy (Unknown, Verified 01/03/25 14:49) dizzyness,drymouth Medication List - Last Reconciled 01/03/25 by Matty Funez PA-C acetaminophen-codeine 300-30 mg 1 tab PO Q8H PRN 4 days aripiprazole 2 mg PO DAILY 30 days atorvastatin 80 mg PO BEDTIME 90 days blood pressure test kit-large As directed blood sugar diagnostic (FreeStyle Lite Strips) As directed three times a day blood-glucose meter (FreeStyle Lite Meter kit) As directed citalopram (Celexa) 60 mg (3 x 20 mg) PO DAILY 30 days CPAP (CPAP Machine/Device) As directed dulaglutide (Trulicity) 3 mg (0.5 mL) subcut QWEEK 4 weeks empagliflozin (Jardiance) 10 mg PO DAILY flash glucose scanning reader (Spare BackupStyle Mat 2 [place]) As directed flash glucose sensor (FreeStyle Mat 2 Sensor kit) As directed every 2 weeks gabapentin 800 mg PO QID 30 days ibuprofen mg PO insulin glargine (Lantus Solostar U-100 Insulin) 40 units (0.4 mL) subcut QPM 30 days lancets (FreeStyle Lancets) As directed three time a day lisinopril 10 mg PO DAILY metformin 1,000 mg (2 x 500 mg) PO BID omeprazole 20 mg PO DAILY pen needle, diabetic (BD Ultra-Fine Mini Pen Needle) 1 ea subcut DAILY 30 days Tobacco use date assessed: 10/03/24 Dental Screening Dental Screen Date: 10/31/24 HPI DMII HPI Details Patient is a 59-year-old male here today for a follow-up visit.? Patient has a past medical history significant for morbid obesity, major depressive disorder, on controlled type 2 diabetes with polyneuropathy, hyperlipidemia, hypertension. . DMII: Patient's type 2 diabetes suboptimally controlled as he has not been following a particular diabetic diet. He is feeling much too depressed to take care of himself at this point thus will like to work on his depression. He is consistent with taking his metformin and Trulicity though is somewhat inconsistent with taking his daily insulin. He has reduced his metformin to 500 b.i.d. due to reports some urinary urgency. Most recent A1c at 11.1 and he does understand his diabetes is not well controlled. He does have pretty severe polyneuropathy in his lower extremities to which he takes gabapentin for. PLAN: Will transition him from Trulicity to Ozempic in hopes that this will give him better glycemic control. He does understand he needs to work on a diabetic diet which has been difficult for him over the years. .. Hyperlipidemia: Most recent lipid panel continues to show elevated total cholesterol and LDL. Again not following any particular diet. Already on highest potency statin. .. Hypertension: Blood pressure acceptable today in office.. He does not monitor blood pressure at home. Otherwise denies any chest discomfort, palpitations, headaches or dizziness. .. Depression: He reports he continues to have depression which hinders him from taking care of himself., recently we have added Abilify 2 mg which seems to have helped him with his depression. he continues on Celexa 60 mg though feels it is not as effective as it once was. He has been resistant to start talking to a mental health therapist. .. Class 3 Obesity: He does understand his BMI is well over 30 and will work on being adherent to a diabetic diet to help him lose weight. .. Obstructive sleep apnea: Followed by [facility]. He does use a CPAP machine on a nightly basis good effect on his sleep. Laboratory Tests 08/06/24 12/31/24 07:32 07:48 RBC 5.61 Fasting Glucose 248 H 268 H Hemoglobin A1c % 11.0 H 11.1 H Cholesterol 172 221 H LDL Cholesterol, C alc 108 H 135 H [facility] Medical History COVID-19 Somnolence, daytime Obesity (BMI 30-39.9) Type 2 diabetes mellitus with diabetic polyneuropathy Type 2 diabetes with nephropathy Diabetes type 2, uncontrolled Hyperlipidemia LDL goal <100 Essential hypertension Morbid obesity Spondylosis of lumbar region without myelopathy or radiculopathy Lower back pain Neuropathy Diabetes Surgical History Hx of colonoscopy History of surgery History of eye surgery Family History Father Hypertension Diabetes Hepatitis Mother Heart disease CVD (cardiovascular disease) Social History Household Members: None Housing: Apartment Alcohol intake: never Patient Tobacco Use Status: Never used Tobacco e-Cigarette/Vaping Use: Never Used Second Hand Smoke Exposure: No service: No Current occupational status: employed Current occupation: SECURITY Current occupational exposures/hazards: No Cognitive needs: No Hearing needs: No Vision needs: No Questionnaire PHQ-9 Over the last 2 weeks, how often have you been bothered by any of the following problems? 1. Little interest or pleasure in doing things: several days 2. Feeling down, depressed, or hopeless: more than half the days 3. Trouble falling or staying asleep, or sleeping too much: not at all 4. Feeling tired or having little energy: not at all 5. Poor appetite or overeating: not at all 6. Feeling bad about yourself - or that you are a failure or have let yourself or your family down: not at all 7. Trouble concentrating on things, such as reading the newspaper or watching television: not at all 8. Moving or speaking so slowly that other people could have noticed. Or the opposite - being so fidgety or restless that you have been moving around a lot more than usual: not at all 9. Thoughts that you would be better off or of hurting yourself in some way: not at all Total score: 3 Depression Screening Interpretation: Positive Depression Screening Follow-up: Existing condition Depression Screening Done: Yes 10906 - PHQ-9 Billing: Yes Source: Developed by Drs. Hermes Kaiser, Lalitha Navas, Arash Walters and colleagues, with an educational darcie from [employer]. Thrive Questionnaire Date Thrive assessed: 10/03/24 I am a: Patient What is your living situation today?: I have a steady place to live Within the past 12 months, did the food you bought not last and you didn't have the money to get more?: I choose not to answer this question Within the past 12 months, did you worry whether your food would run out before you got money to buy more?: I choose not to answer this question Do you have trouble paying for medicines?: I choose not to answer this question Do you have trouble getting transportation to medical appointments?: I choose not to answer this question Do you have trouble paying your heating and electricity bill?: I choose not to answer this question Do you have trouble taking care of your child, family member or friend?: I choose not to answer this question Do you have trouble with day-to-day activities such as bathing, preparing meals, shopping, managing finances, etc.?: I choose not to answer this question Are you currently unemployed and looking for a job?: I choose not to answer this question Are you interested in more education?: I choose not to answer this question Please select the resources that you would like help with: None Currently or been in a relationship where the following occur: I choose not to answer THRIVE Score: 0 AUDIT C Alcohol Use Questionnaire (AUDIT-C) 1. How often do you have a drink containing alcohol?: Never Total Score: 0 YODIT-7 AMB Questionnaire YODIT-7 Date YODIT - 7 assessed: 10/03/24 Feeling nervous, anxious, or on edge: 0 = Not at all Not being able to stop or control worryin = Not at all Worrying too much about different things: 0 = Not at all Trouble relaxin = Not at all Being so restless that it is hard to sit still: 0 = Not at all Becoming easily annoyed or irritable: 0 = Not at all Feeling afraid as if something awful might happen: 0 = Not at all Total YODIT-7 score (0-4 normal; 5-9 mild; 10-14 moderate; 15-21 severe): 0 Source: Developed by Drs. Hermes Kaiser, Lalitha Navas, Arash Walters and colleagues, with an educational darcie from [employer]. YODIT-7 Assessment Billing YODIT-7 Assessment Tool: YODIT-7 Assessment 33636 Review of Systems Const Denies headache(s) Eyes Denies loss of vision ENT Denies vertigo, Denies dizziness, Denies headache(s) and Denies sore throat Card Denies chest pain, Denies leg edema and Denies lightheadedness Resp Denies cough, Denies hemoptysis and Denies wheezing GI Denies abdominal pain, Denies melena, Denies constipation, Denies diarrhea and Denies vomiting Denies dysuria, Denies urinary frequency and Denies urinary urgency Musc Denies arthralgias, Denies joint swelling, Denies numbness and Denies tingling Neuro Denies Abnormal speech present, Denies behavioral changes, Denies vertigo, Denies dizziness, Denies headache(s), Denies loss of vision, Denies memory loss, Denies numbness and Denies tingling Psych Denies anxiety, Denies behavioral changes, Denies depression, Denies memory loss and Denies panic attacks Sudarshan/Lymph Denies easy bleeding and Denies easy bruising Aller/Immun Denies wheezing Physical exam (Primary Care) Vital Signs: Last Vital Signs Temp 97.1 F 01/03/25 14:34 Pulse 88 01/03/25 14:34 BP 118/68 01/03/25 14:34 Pulse Ox 99 01/03/25 14:34 Oxygen Delivery Method Room Air 01/03/25 14:34 BMI result Body Mass Index 40.5 Tobacco/Smoking Status: Tobacco use Status Tobacco use date assessed 10/03/24 01/03/25 14:35 Patient Tobacco Use Status Never used Tobacco 01/03/25 14:35 e-Cigarette/Vaping Use Never Used 01/03/25 14:35 PHQ-9: PHQ-9 Score PHQ-9: Total score 3 01/03/25 14:55 Depression Screening Interpretation: Positive Depression Screening Follow-up: Existing condition Thrive Assessment: Date of Thrive Assessment Date Thrive assessed 10/03/24 01/03/25 14:35 Currently or been in a relationship where the following occur: I choose not to answer Const General: healthy appearing, no acute distress, alert and awake Nutritional Appearance: well nourished Orientation/consciousness: oriented to person, oriented to place and oriented to time HENMT Ears: TM's normal bilaterally General nose exam: Normal nasal mucous membranes and turbinates present Eyes Conjunctivae: conjunctivae normal Sclerae: sclerae normal Pupils: Equal, round and reactive pupils present Neck Neck: Yes no lymphadenopathy and Yes no JVD Thyroid: Thyroid normal Carotids: no bruits Resp Effort & Inspection: normal respiratory effort and not tachypneic Auscultation: no crackles, no rales, no rhonchi and no wheezes Cardio Rate: regular rate Rhythm: regular rhythm Heart sounds: no murmurs and normal S1 and S2 GI Palpation (GI): Soft to palpation, nontender, no hepatomegaly and no splenomegaly Auscultation: normal bowel sounds Skin General skin exam: no rashes or lesions noted and dry skin Neuro General: oriented to person, oriented to place and oriented to time Cranial nerves: Yes Equal, round and reactive pupils present Speech: No Abnormal speech present Gait exam (Neuro): Normal gait present Motor exam (neuro): no tremor noted Extrem Right upper extremity: full ROM Left upper extremity: full ROM Right lower extremity: full ROM; no edema Left lower extremity: full ROM; no edema Psych Mental Status: mental status grossly normal Speech and movement: Normal speech and movement present Affect: normal affect Attitude: cooperative Thought process: Normal thought process present Coding Level of Care Code Est Pt Level 4 (52523) Diagnoses Uncontrolled type 2 diabetes mellitus with hyperglycemia E11.65 Glycemic state: with hyperglycemia MDD (major depressive disorder), recurrent episode, moderate F33.1 Class 3 obesity E66.813 Mixed hyperlipidemia E78.2 Hyperlipidemia type: mixed hyperlipidemia Painful diabetic neuropathy E11.40 Additional Codes PHQ-9 - 96144 - PHQ-9 Billing: Yes ([id number]) YODIT-7 Assessment Billing - YODIT-7 Assessment Tool: YODIT-7 Assessment 08416 ([id number]) Assessment & Plan Assessment & Plan (1) Diabetes type 2, uncontrolled: Code(s): E11.65 - Type 2 diabetes mellitus with hyperglycemia Category: Medical Qualifiers: Glycemic state: with hyperglycemia Qualified Code(s): E11.65 - Type 2 diabetes mellitus with hyperglycemia Plan: Patient's type 2 diabetes uncontrolled. Most recent A1c at 11.1. He continues to use his medications though is not regularly checking his blood sugars or following any kind of type 2 diabetic diet. We will transitioned from Trulicity to Ozempic 0.5 mg weekly hopes to reduce weight and get better glycemic control. He will continue on metformin 500 b.i.d. and his current dose of Lantus daily. Will try to be more adherent to daily Lantus. We discuss perhaps seeing judicial assistant though he is just considering at this time. He does have pretty severe diabetic neuropathy in his lower extremities to which he is managing with gabapentin. (2) MDD (major depressive disorder), recurrent episode, moderate: Code(s): F33.1 - Major depressive disorder, recurrent, moderate Category: Medical Plan: Patient reports his depression has been a bit better as of late since the addition Abilify was started. (3) Class 3 obesity: Code(s): E66.813 - Obesity, class 3 Category: Medical Plan: Patient does understand his BMI is over 40. He does understand he needs to work on being more physically active and adapting to better eating habits to reduce his weight. (4) HLD (hyperlipidemia): Code(s): E78.5 - Hyperlipidemia, unspecified Category: Medical Qualifiers: Hyperlipidemia type: mixed hyperlipidemia Qualified Code(s): E78.2 - Mixed hyperlipidemia Plan: Patient's recent lipid panel showing elevated total cholesterol and LDL. He admits to continuing to be adherent to his high dose statin therapy. He will work on dietary modifications Goal LDL to be below 100 (5) Painful diabetic neuropathy: Code(s): E11.40 - Type 2 diabetes mellitus with diabetic neuropathy, unspecified Category: Medical Plan: Continues to gabapentin. He does understand he needs to get his sugars better controlled to help his diabetic neuropathy. Did consider pain management referral for topical diabetic neuropathy treatment Orders: Referrals General Surgery Referral L72.0 - Epidermal cyst Medications: New semaglutide (Ozempic) for 4 weeks 0.5 mg (0.736 mL) subcut QWEEK 3 mL 3RF 4 weeks E11.65 - Type 2 diabetes mellitus with hyperglycemia On Hold dulaglutide (Trulicity) Hold Comment: Doctor's Order 3 mg (0.5 mL) subcut QWEEK 4 weeks 2 mL 0RF E11.42 - Type 2 diabetes mellitus with diabetic polyneuropathy
--- OUTSIDE RECORDS SUMMARY | 2025-01-03 17:24 | XMS_ITS | Encounter Summary ---
Author Organization [employer] Address [address] [place] [address] Care Team Providers Care Vanstone Machine Operator Name Role Phone Unavailable Primary Care Provider Unavailabl e Reason for Visit * Reason Onset Date Comments oral surgery or Dr. Rey 08/30/2024 Encounter Details Date Type Department Care Team ([facility] st Contact Info) Description 08/30/2024 Telephone [facility] [address], [place] [phone] Peña Harrison, GONZALEZ [address], [place] [phone] oral surgery or Dr. Rey Social History [...] Otherwise heis waiting for call back from [facility] for Dr. Rey. [facility] documented in this encounter Plan of Treatment Not on file documented as of this encounter Visit Diagnoses Not on filedocumented in this encounter
== END 2025-01-03 15:50 | disposition home or self-care (01) ==
LOC: HO.HMCH 14:26
PROVIDERS: PCP Physician Assistant; Visit Provider Physician Assistant
DX: E11.65 Type 2 diabetes mellitus with hyperglycemia (principal); F33.1 Major depressive disorder, recurrent, moderate; E11.40 Type 2 diabetes mellitus with diabetic neuropathy, unspecified; Z68.41 Body mass index [BMI] 40.0-44.9, adult; E66.813 Obesity, class 3; E78.2 Mixed hyperlipidemia

== ENCOUNTER → 2025-01-03 14:25 | Outpatient (BNVA) | payer OTHER, SELFPAY | PROVIDERS: PCP Physician Assistant; Visit Provider Physician Assistant | DX: E11.65 Type 2 diabetes mellitus with hyperglycemia (principal); F33.1 Major depressive disorder, recurrent, moderate; E66.813 Obesity, class 3; Z68.41 Body mass index [BMI] 40.0-44.9, adult; E78.2 Mixed hyperlipidemia; E11.40 Type 2 diabetes mellitus with diabetic neuropathy, unspecified; L72.0 Epidermal cyst; G47.33 Obstructive sleep apnea (adult) (pediatric); Z79.4 Long term (current) use of insulin; Z79.84 Long term (current) use of oral hypoglycemic drugs; Z13.31 Encounter for screening for depression | CPT/HCPCS: 96127 ==

== ENCOUNTER 2025-07-16 12:53 | Emergency (ER) | payer OTHER, SELFPAY ==
--- NOTE | ~2025-07-16 | CT_ITS ---
CLINICAL HISTORY: trauma, left sided AP rib pain CT chest with contrast Comparison: None provided Findings: The heart is normal size. The visualized thyroid and mediastinum are unremarkable. There are multiple calcified granulomas within the lungs. There are multiple tiny noncalcified pulmonary nodules measuring up to 3 mm in size. There is no consolidation, pleural effusion or pneumothorax. The upper abdomen is unremarkable. No acute fractures. IMPRESSION: No significant injury at the level of the chest. This document has been electronically signed by: Dee Miller MD on 07/16/2025 15:53:52
--- NOTE | ~2025-07-16 | CT_ITS ---
CLINICAL HISTORY: fall, hit head CT head without contrast Comparison: None provided Findings: No intra-axial mass, midline shift, hydrocephalus, or acute hemorrhage. No significant atrophy-like change or white matter disease. There is no sinus or mastoid fluid. The orbits are unremarkable. Left parietal scalp contusion. No skull fracture. IMPRESSION: 1. No acute intracranial findings. This document has been electronically signed by: Dee Miller MD on 07/16/2025 15:50:32
--- NOTE | ~2025-07-16 | CT_ITS ---
CLINICAL HISTORY: fall, hit head CT cervical spine without contrast Comparison: None provided Findings: Normal vertebral body alignment. Multilevel degenerative disc disease and facet osteoarthritis. 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 Mild central canal stenosis at C2-C3 and C6-C7. No acute fractures or dislocations. Visualized intracranial contents are unremarkable. Subcentimeter nodule within the left lobe of the thyroid. No consolidation or effusion at the lung apices. IMPRESSION: No acute cervical spine fracture. This document has been electronically signed by: Dee Miller MD on 07/16/2025 15:48:02
--- NOTE | ~2025-07-16 | CT_ITS ---
CLINICAL HISTORY: trauma, left sided AP rib pain CT abdomen and pelvis with contrast Comparison: None provided Findings: There are small granulomas within the bilateral lower lungs. No consolidation or pleural effusion. Unremarkable gallbladder and solid organs. No urolithiasis. No free fluid. No bowel obstruction, pneumoperitoneum, or pneumatosis. Pelvic contents unremarkable. Normal appendix. No acute fracture. IMPRESSION: No acute findings. This document has been electronically signed by: Dee Miller MD on 07/16/2025 15:47:07
--- NOTE | ~2025-07-16 | CT_ITS ---
CLINICAL HISTORY: fall, nasal deformity CT maxillofacial without contrast Comparison: None provided Findings: There is a possible nondisplaced nasal bone fracture. Temporomandibular joints are intact. There is multifocal dental caries. There are multiple missing teeth. There are small periodontal abscesses associated with the left maxillary and mandibular 2nd molars. No air-fluid levels within the paranasal sinuses. Orbital contents within normal limits. Visualized intracranial contents are within normal limits. No foreign bodies. IMPRESSION: There is a possible nondisplaced nasal bone fracture. This document has been electronically signed by: Dee Miller MD on 07/16/2025 15:56:30
[2025-07-16 13:04] VITALS: BP 134/69; BP 163/90; PULSE 88; PULSE 89; RESP 20; TEMP 36.4; O2SAT 100; O2SAT 95; BMI 41.6
--- NOTE | 2025-07-16 13:10 | ED.FALL ---
HPI - Fall General Chief Complaint: Fall Stated Complaint: FALL Time Seen by Provider: 07/16/25 13:02 Source: patient and EMS Mode of arrival: EMS Limitations: no limitations History of Present Illness ED Provider: Leny Cooper APRN HPI Narrative: 60 yo male with PMH of DM, HTN, HLD, GERD, anxiety here with complaints of nasal pain, left rib/back pain after mechanical fall just prior to arrival. 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 Denies loss of consciousness. He denies striking his chest or abdomen. He was unable to get up on his own and this prompted him to call EMS. On arrival he is complaining of nasal pain with laceration, mild headache, left rib and flank pain. He denies any back pain, neck pain, vision changes, vomiting, shortness of breath. His tetanus status is unknown. He is not on anticoagulation Related Data Home Medications ?Medication ?Instructions ?Recorded ?Confirmed ibuprofen 400 mg tablet mg PO 10/03/24 01/03/25 Previous Rx's ?Medication ?Instructions ?Recorded blood sugar diagnostic (FreeStyle #100 ea 07/09/21 Lite Strips) blood-glucose meter (FreeStyle #1 ea 07/09/21 Lite Meter kit) lancets 28 gauge (FreeStyle #100 ea 07/09/21 Lancets) flash glucose scanning reader #1 ea 12/17/21 (FreeStyle Mat 2 [place]) flash glucose sensor (FreeStyle #2 ea 12/17/21 Mat 2 Sensor kit) blood pressure test kit-large #1 ea 12/12/22 CPAP (CPAP Machine/Device) #1 ea 12/15/22 dulaglutide 3 mg/0.5 mL 3 mg (0.5 mL) subcut QWEEK 4 weeks 08/09/24 subcutaneous pen injector #2 mL ([facility]) Held on 01/03/25. Instructions: Doctor's Order insulin glargine 100 unit/mL (3 40 unit (0.4 mL) subcut QPM 30 08/09/24 mL) subcutaneous pen (Lantus days #15 mL Solostar U-100 Insulin) pen needle, diabetic 31 gauge x 1 ea subcut DAILY 30 days #30 ea 08/25/2410/09 (BD Ultra-Fine Mini Pen Needle) acetaminophen 300 mg-codeine 30 mg 1 tab PO Q8H PRN pain 4 days #12 10/03/24 tablet tabs atorvastatin 80 mg tablet 80 mg PO BEDTIME 90 days #90 tabs 12/15/24 empagliflozin 10 mg tablet 10 mg PO DAILY #30 tabs 02/05/25 (Jardiance) metformin 500 mg tablet 1,000 mg (2 x 500 mg) PO BID #360 02/05/25 tabs gabapentin 800 mg tablet 800 mg PO QID 30 days #120 tabs 02/06/25 semaglutide 0.25 mg or 0.5 mg (2 0.5 mg (0.736 mL) subcut QWEEK 4 03/14/25 mg/3 mL) subcutaneous pen injector weeks #3 mL (Ozempic) citalopram 20 mg tablet (Celexa) 60 mg (3 x 20 mg) PO DAILY 30 days 04/12/25 #90 tabs aripiprazole 2 mg tablet 2 mg PO DAILY 30 days #30 tabs 05/22/25 lisinopril 10 mg tablet 10 mg PO DAILY #90 tabs 06/10/25 omeprazole 20 mg capsule,delayed 20 mg PO DAILY #90 caps 06/10/25 release cephalexin 500 mg capsule 500 mg PO BID #14 caps 07/16/25 Allergies Allergy/AdvReac Type Severity Reaction Status Date / Time Sulfa (Sulfonamide Allergy Unknown dizzyness,d Verified 07/16/25 13:07 Antibiotics) norris Review of Systems Review of Systems: Yes all other systems are reviewed and are negative Constitutional: Constitutional: Reports no additional constitutional complaints, Denies body ache(s), Denies chills, Denies fever(s), Reports headache(s) and Denies weakness Eyes: Eyes: Reports no additional eye complaints and Denies change in vision ENT: Reports system reviewed and no additional complaints, except as documented, Denies dizziness, Reports facial pain, Reports headache(s), Denies nasal congestion, Denies nasal discharge and Denies neck pain Cardiovascular: Cardiovascular: Reports no additional cardiovascular complaints, Reports chest pain, Denies leg edema and Denies dyspnea Respiratory: Respiratory: Reports no additional respiratory complaints, Denies cough and Denies dyspnea Gastrointestinal: Gastrointestinal: Reports no additional gastrointestinal complaints, Denies abdominal pain, Denies diarrhea, Denies nausea and Denies vomiting Genitourinary: Genitourinary: Denies urinary incontinence Musculoskeletal: Musculoskeletal: Reports no additional musculoskeletal complaints, Reports back pain, Denies arthralgias, Denies joint swelling, Denies neck pain, Denies numbness and Denies tingling Integumentary/Breasts: Skin/Breast: Reports system reviewed and no additional complaints, except as docu and Denies rash Neurologic: Reports system reviewed and no additional complaints, except as documented, Denies Abnormal speech present, Denies dizziness, Reports headache(s), Denies numbness, Denies tingling and Denies weakness PMFSH Past Medical History Attestation statement: The following information was validated with the patient. 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 Diabetes type 2, uncontrolled Hyperlipidemia LDL goal <100 Essential hypertension Morbid obesity Spondylosis of lumbar region without myelopathy or radiculopathy Lower back pain Neuropathy Diabetes Surgical History Hx of colonoscopy History of surgery History of eye surgery Family History Family History Father Hypertension Diabetes Hepatitis Mother Heart disease CVD (cardiovascular disease) Social History Social History Household Members: None Housing: Apartment Alcohol intake: never Patient Tobacco Use Status: Never used Tobacco e-Cigarette/Vaping Use: Never Used Second Hand Smoke Exposure: No Advance Directives: No Advance Directives Information Provided: No service: No Current occupational status: employed Current occupation: SECURITY Current occupational exposures/hazards: No Cognitive needs: No Hearing needs: No Vision needs: No Physical Exam Vital Signs: Vital Signs: Last Vital Signs Temp 98.1 F 07/16/25 16:26 Pulse 88 07/16/25 16:26 Resp 20 07/16/25 16:26 BP 133/82 07/16/25 16:26 Pulse Ox 98 07/16/25 16:26 O2 Del Method Room Air 07/16/25 16:26 BMI result Body Mass Index 41.6 Const: General: cooperative, healthy appearing, comfortable and no acute distress Orientation/consciousness: patient oriented x3 Limitations: no limitations HEENT: Other: NO septal hematoma Head: Yes normal to inspection, No Zuñiga's sign and No raccoon eyes Ears: hearing grossly normal bilaterally and TM's normal bilaterally General nose exam: Normal external nose present Face and sinus: Yes normal facial exam Face images:  1. 1cm laceration, +swelling. No active bleeding. Mouth: Normal oral and palatal mucosa present Throat: Yes posterior oropharynx normal, Yes tonsils normal and Yes uvula midline Eyes: General: appearance normal, both eyes and all related structures Pupils: Equal, round and reactive pupils present Neck: Other: no cervical midline tenderness, step-offs or deformities Neck: Yes normal visual inspection, Yes full ROM, Yes no lymphadenopathy and Yes no meningeal signs Chest: Chest palpation & inspection: tenderness (Left lateral ribs. no crepitus, ecchymosis or deformity) Resp: Effort & Inspection: normal respiratory effort Auscultation: clear to auscultation bilaterally Cardio: Rate: regular rate Rhythm: regular rhythm Peripheral pulses: Peripheral pulses 2+ throughout GI: Inspection: Yes normal to inspection Palpation (GI): Soft to palpation and nontender Auscultation: normal bowel sounds : General: Yes no CVA tenderness Back/Spine/Pelvis: Other: TTP left posterior rib. no crepitus, ecchymosis or deformity Back: no CVA tenderness Thoracic/Lumbar Spine: thoracic and lumbar spine normal to inspection Skin: General skin exam: no rashes or lesions noted Neuro: General: patient oriented x3, moves all extremities, no meningeal signs, no focal motor deficits and normal sensation to monofilament Cranial nerves: Yes CN's II-XII intact bilaterally, Yes Equal, round and reactive pupils present, Yes Bilaterally intact EOM present, Yes Nystagmus not present, Yes Normal facial strength present and Yes Midline tongue present Cognition (Neuro): normal cognition Speech: No Abnormal speech present Gait exam (Neuro): Normal gait present Motor exam (neuro): 5/5 motor strength present throughout Sensory Exam: Normal double simultaneous stimulation for sensation Extrem: General: Yes normal to inspection Course Course Course Narrative: 1415- Glucose 478. No evidence of DKA. Patient has a history of diabetes. Fluids are infusing. Will give 10 units IV insulin and re-assess. Reevaluation(s) Reevaluation #1: 1600- CT shows a questionable nondisplaced nasal bone fracture. All the CTs are unremarkable. The patient does have a small abrasion over the bridge of his nose which was cleansed and skin glue was applied. Due to this they will place him on a prophylactic antibiotic and have him follow up with your nose and throat outpatient. His blood sugar is trending down. He tells me he does not take his diabetic medication which is why his blood sugar is elevated. I recommended that he take his medications as prescribed and follow up outpatient with his primary care doctor. Reviewed worrisome signs and symptoms of when to return to the emergency room. Comfortable plan for discharge home. Medications Administered Discontinued Medications Generic Name Dose Route Start Last Admin Trade Name Freq PRN Reason Stop Dose Admin Acetaminophen 975 mg 07/16/25 13:26 07/16/25 14:00 Acetaminophen 325 Mg Tablet PO 07/16/25 13:27 975 mg ONCE ONE Administration Diphtheria/Tetanus/Acell Pertussis 0.5 ml 07/16/25 13:26 07/16/25 14:01 Diphth,Pertus(Acell),Tet Adult 0.5 Ml Syringe IM 07/16/25 13:27 0.5 ml .ONCE ONE Administration Sodium Chloride 1,000 mls @ 999 mls/hr 07/16/25 13:27 07/16/25 15:38 Ns IV 07/16/25 14:27 Infused .Q1H1M STA Infusion Insulin Human Regular 10 unit 07/16/25 14:16 07/16/25 14:59 Insulin Regular, Human 100 Unit/Ml 10 Ml Vial IVPUSH 07/16/25 14:17 10 unit ONCE ONE Administration Iohexol 100 ml 07/16/25 14:33 07/16/25 14:34 Iohexol 350 Mg/Ml 100 Ml Infus..Btl IV 07/16/25 14:34 85 ml ONCE ONE Administration Ketorolac Tromethamine 15 mg 07/16/25 13:26 07/16/25 14:01 Ketorolac Tromethamine 15 Mg/Ml Vial IVPUSH 07/16/25 13:27 15 mg ONCE ONE Administration Medical Decision Making Medical Decision Making [facility] Narrative: 60 yo male with PMH of DM, HTN, HLD, GERD, anxiety here with complaints of nasal pain, left rib/back pain after mechanical fall just prior to arrival. 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 Denies loss of consciousness. He denies striking his chest or abdomen. He was unable to get up on his own and this prompted him to call EMS. On arrival he is complaining of nasal pain with laceration, mild headache, left rib and flank pain. He denies any back pain, neck pain, vision changes, vomiting, shortness of breath. His tetanus status is unknown. He is not on anticoagulation On exam patient is A&Ox4 GCS 15 +small laceration noted over nasal bridge with no active bleeding. +swelling. No epistaxis or septal hematoma. +TTP left lateral and posterior ribs/chest wall with no crepitus, ecchymosis or deformity. LS CTA. No focal abdominal pain however when I press on the patients abdomen he reports pain his left ribs. Will need CT head/facial bones/cervical spine, CT abdomen/pelvis, CT chest. Will obtain pre-screening labs, update tetanus. Patient has concerns of having to drive home and wants non-narcotic options for analgesia. Offered toradol, APAP. Differential Diagnosis Differential Diagnoses: The differential diagnosis associated with the presentation includes Nasal fracture, nasal contusion, concussion, ICH, skull fracture, cervical fracture/strain Rib fracture, rib contusion, PTX, pulmonary contusion, Splenic injury, renal injury Admission/Observation Consideration of admission/observation: Escalation of care including admission/observation considered Lab Data [facility] Lab Attestation statement: I reviewed the patient's lab results. 07/16/25 13:50 07/16/25 13:50 Labs: Lab Results 07/16/25 07/16/25 07/16/25 Range/Units 13:50 14:58 16:02 WBC 8.6 (4.8-10.8) X10*3/uL RBC 5.40 (4.60-5.80) X10*6/uL Hgb 15.3 (14.0-18.0) g/dl Hct 45.4 (42.0-52.0) % MCV 84.1 (80.0-98.0) fL MCH 28.3 (27.0-33.0) pg MCHC 33.7 (31.0-36.0) g/dl RDW 12.3 (11.0-16.0) % Plt Count 255 (160-400) X10*3/uL MPV 9.7 (9.4-12.4) fL Immature Gran % (Auto) 0.2 (0.0-0.4) % Neut % (Auto) 67.3 (45-73) % Lymph % (Auto) 22.4 (20-40) % [place] % (Auto) 7.7 (2-11) % Eos % (Auto) 1.9 (0-4) % Baso % (Auto) 0.5 (0-2) % Lymph # (Auto) 1.9 (1.2-4.9) X10*3/uL [place] # (Auto) 0.7 (0.1-1.2) X10*3/uL Eos # (Auto) 0.2 (0.0-0.4) X10*3/uL Baso # (Auto) 0.0 (0.0-0.2) X10*3/uL Abs Immat Gran (auto) 0.02 (0.00-0.03) X10*3/uL Absolute Neuts (auto) 5.8 (2.0-8.3) x10*3/uL Absolute Nucleated RBC 0.000 (0.0-0.012) X10*3/uL Nucleated RBC % (auto) 0.0 (0.0-0.2) /100WBC Sodium 133 L (135-145) mmol/L Potassium 4.4 (3.3-5.1) mmol/L Chloride 101 (96-108) mmol/L Carbon Dioxide 21 L (22-29) mmol/L Anion Gap 15 (12-20) BUN 20 H (9-16) mg/dL Creatinine 0.88 (0.5-1.4) mg/dL Estim Creat Clear Calc 134.3 Estimated GFR > 60 POC Glucose 423 H* 393 H* (60-115) mg/dL Random Glucose 478 H* (60-115) mg/dL Calcium 9.1 (8.4-10.2) mg/dL Urine Color Urine Appearance Urine pH (5.0-9.0) Ur Specific [place] (1.005-1.025) Urine Protein (Neg-Trace) mg/dL Urine Glucose (UA) (Negative) mg/dL Urine Ketones (Negative) mg/dL Urine Blood (Negative) Urine Nitrite (Negative) Ur Leukocyte Esterase (Negative) Urine RBC (0-2) /HPF Urine WBC (0-5) /HPF Ur Squamous Epith Cells (0-2) /HPF Urine Bacteria (None Seen) Hyaline Casts (0-2) /LPF 07/16/25 Range/Units 16:05 WBC (4.8-10.8) X10*3/uL RBC (4.60-5.80) X10*6/uL Hgb (14.0-18.0) g/dl Hct (42.0-52.0) % MCV (80.0-98.0) fL MCH (27.0-33.0) pg MCHC (31.0-36.0) g/dl RDW (11.0-16.0) % Plt Count (160-400) X10*3/uL MPV (9.4-12.4) fL Immature Gran % (Auto) (0.0-0.4) % Neut % (Auto) (45-73) % Lymph % (Auto) (20-40) % [place] % (Auto) (2-11) % Eos % (Auto) (0-4) % Baso % (Auto) (0-2) % Lymph # (Auto) (1.2-4.9) X10*3/uL [place] # (Auto) (0.1-1.2) X10*3/uL Eos # (Auto) (0.0-0.4) X10*3/uL Baso # (Auto) (0.0-0.2) X10*3/uL Abs Immat Gran (auto) (0.00-0.03) X10*3/uL Absolute Neuts (auto) (2.0-8.3) x10*3/uL Absolute Nucleated RBC (0.0-0.012) X10*3/uL Nucleated RBC % (auto) (0.0-0.2) /100WBC Sodium (135-145) mmol/L Potassium (3.3-5.1) mmol/L Chloride (96-108) mmol/L Carbon Dioxide (22-29) mmol/L Anion Gap (12-20) BUN (9-16) mg/dL Creatinine (0.5-1.4) mg/dL Estim Creat Clear Calc Estimated GFR POC Glucose (60-115) mg/dL Random Glucose (60-115) mg/dL Calcium (8.4-10.2) mg/dL Urine Color Yellow Urine Appearance Clear Urine pH 5.0 (5.0-9.0) Ur Specific Soso >= 1.030 H (1.005-1.025) Urine Protein Negative (Neg-Trace) mg/dL Urine Glucose (UA) >=1000 H (Negative) mg/dL Urine Ketones Negative (Negative) mg/dL Urine Blood Negative (Negative) Urine Nitrite Negative (Negative) Ur Leukocyte Esterase Negative (Negative) Urine RBC 0-2 (0-2) /HPF Urine WBC 0-5 (0-5) /HPF Ur Squamous Epith Cells 0-2 (0-2) /HPF Urine Bacteria None Seen (None Seen) Hyaline Casts 0-2 (0-2) /LPF Independent Interpretation I performed an independent interpretation of an: CT Scan Interpretation: I independently viewed the CT scan agree with the radiology report Radiology Impression Discussion of test interpretation with radiology: I have reviewed the radiologist's reading. Radiologist Impression: [place] [address] CT Scan Report Signed Patient: Nikolai Reyes MR#: [id number] : 1965 Acct:[id number] Age/Sex: 60 / M ADM Date: 07/16/25 Loc: .ED Attending Dr: Ordering Physician: Leny Cooper NP Date of Service: 07/16/25 Procedure(s): CT head/brain wo IV con Accession Number(s): [id number] cc: Matty Funez PA-C; Leny Cooper NP~ Report Number: [id number]: Total DLP = 0.00 mGy-cm Reason for Exam: fall, hit head CLINICAL HISTORY: fall, hit head CT head without contrast Comparison: None provided Findings: No intra-axial mass, midline shift, hydrocephalus, or acute hemorrhage. No significant atrophy-like change or white matter disease. There is no sinus or mastoid fluid. The orbits are unremarkable. Left parietal scalp contusion. No skull fracture. IMPRESSION: 1. No acute intracranial findings. This document has been electronically signed by: Dee Miller MD on 07/16/2025 15:50:[address] [address] [address] Scan Report Signed Patient: Nikolai Reyes MR#: [id number] : 1965 Acct:[id number] Age/Sex: 60 / M ADM Date: 07/16/25 Loc: HO.ED Attending Dr: Ordering Physician: Leny Cooper NP Date of Service: 07/16/25 Procedure(s): CT cervical spine wo IV con Accession Number(s): [id number] cc: Matty Funez PA-C; Leny Cooper NP~ Report Number: [id number]: Total DLP = 0.00 mGy-cm Reason for Exam: fall, hit head CLINICAL HISTORY: fall, hit head CT cervical spine without contrast Comparison: None provided Findings: Normal vertebral body alignment. Multilevel degenerative disc disease and facet osteoarthritis. 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 Mild central canal stenosis at C2-C3 and C6-C7. No acute fractures or dislocations. Visualized intracranial contents are unremarkable. Subcentimeter nodule within the left lobe of the thyroid. No consolidation or effusion at the lung apices. IMPRESSION: No acute cervical spine fracture. This document has been electronically signed by: Dee Miller MD on 07/16/2025 15:48:[address] [address] [address] Scan Report Signed Patient: Nikolai Reyes MR#: [id number] : 1965 Acct:[id number] Age/Sex: 60 / M ADM Date: 07/16/25 Loc: HO.ED Attending Dr: Ordering Physician: Leny Cooper NP Date of Service: 07/16/25 Procedure(s): CT abdomen pelvis w IV con Accession Number(s): [id number] cc: Matty Funez PA-C; Leny Cooper [employer]~ Report Number: [id number]: Total DLP = 4305.92 mGy-cm Reason for Exam: trauma, left sided AP/rib pain CLINICAL HISTORY: trauma, left sided AP rib pain CT abdomen and pelvis with contrast Comparison: None provided Findings: There are small granulomas within the bilateral lower lungs. No consolidation or pleural effusion. Unremarkable gallbladder and solid organs. No urolithiasis. No free fluid. No bowel obstruction, pneumoperitoneum, or pneumatosis. Pelvic contents unremarkable. Normal appendix. No acute fracture. IMPRESSION: No acute findings. This document has been electronically signed by: Dee Miller MD on 07/16/2025 15:47:[address] [place] [address] [address] Scan Report Signed Patient: Nikolai Reyes MR#: [id number] : 1965 Acct:[id number] Age/Sex: 60 / M ADM Date: 07/16/25 Loc: HO.ED Attending Dr: Ordering Physician: Leny Cooper NP Date of Service: 07/16/25 Procedure(s): CT chest w IV con Accession Number(s): [id number] cc: Matty Funez PA-C; Leny Cooper NP~ Report Number: [id number]: Total DLP = 0.00 mGy-cm Reason for Exam: trauma, left sided AP/rib pain CLINICAL HISTORY: trauma, left sided AP rib pain CT chest with contrast Comparison: None provided Findings: The heart is normal size. The visualized thyroid and mediastinum are unremarkable. There are multiple calcified granulomas within the lungs. There are multiple tiny noncalcified pulmonary nodules measuring up to 3 mm in size. There is no consolidation, pleural effusion or pneumothorax. The upper abdomen is unremarkable. No acute fractures. IMPRESSION: No significant injury at the level of the chest. This document has been electronically signed by: Dee Miller MD on 07/16/2025 15:53:[address] [address] [address] Scan Report Signed Patient: Nikolai Reyes MR#: [id number] : 1965 Acct:[id number] Age/Sex: 60 / M ADM Date: 07/16/25 Loc: HO.ED Attending Dr: Ordering Physician: Leny Cooper NP Date of Service: 07/16/25 Procedure(s): CT facial bones wo IV con Accession Number(s): [id number] cc: Matty Funez PA-C; Leny Cooper NP~ Report Number: [id number]: Total DLP = 0.00 mGy-cm Reason for Exam: fall, nasal deformity CLINICAL HISTORY: fall, nasal deformity CT maxillofacial without contrast Comparison: None provided Findings: There is a possible nondisplaced nasal bone fracture. Temporomandibular joints are intact. There is multifocal dental caries. There are multiple missing teeth. There are small periodontal abscesses associated with the left maxillary and mandibular 2nd molars. No air-fluid levels within the paranasal sinuses. Orbital contents within normal limits. Visualized intracranial contents are within normal limits. No foreign bodies. IMPRESSION: There is a possible nondisplaced nasal bone fracture. This document has been electronically signed by: Dee Miller MD on 07/16/2025 15:56:30 Independent Historian Clinical information obtained from an independent historian. History obtained from or confirmed by: EMS Discharge Plan Discharge Clinical Impression: Acute hyperglycemia, Fracture, nasal bone, open, Back pain Patient Disposition: Home, Self-Care Instructions: Nasal Fracture (ED), Back Pain (ED), Diabetic Hyperglycemia (ED) Additional Instructions: your CT scan shows a possible nasal bone fracture. You do have a small abrasion over her nose and because of this we will treat you with an antibiotic and have you follow-up with your nose and throat outpatient. Your additional CT scans are all normal. Please take Motrin or Tylenol for any pain as needed. Apply ice to the affected area. Follow up with the primary care doctor for any continued symptoms. your blood sugar was elevated today. You did receive insulin at 15:00. You should continue to take your home medications as prescribed Prescriptions: New cephalexin 500 mg capsule 500 mg PO BID Qty: 14 0RF No Action (DME) CPAP Machine/Device Device See Rx Instructions .Route Qty: 1 0RF Rx Instructions: As directed Lantus Solostar U-100 Insulin 100 unit/mL (3 mL) insulin pen 40 unit subcut QPM 30 Days Qty: 15 6RF Trulicity 3 mg/0.5 mL pen injector 3 mg subcut QWEEK 28 Days Qty: 2 0RF pen needle, diabetic [BD Ultra-Fine Mini Pen Needle] 31 gauge x 3/16 needle 1 ea subcut DAILY 30 Days Qty: 30 6RF atorvastatin 80 mg tablet 80 mg PO BEDTIME 90 Days Qty: 90 0RF Jardiance 10 mg tablet 10 mg PO DAILY Qty: 30 0RF metformin 500 mg tablet 1,000 mg PO BID Qty: 360 0RF gabapentin 800 mg tablet 800 mg PO QID 30 Days Qty: 120 0RF Ozempic 0.25 mg or 0.5 mg (2 mg/3 mL) pen injector 0.5 mg subcut QWEEK 28 Days Qty: 3 3RF Rx Instructions: for 4 weeks citalopram [Celexa] 20 mg tablet 60 mg PO DAILY 30 Days Qty: 90 2RF aripiprazole 2 mg tablet 2 mg PO DAILY 30 Days Qty: 30 3RF lisinopril 10 mg tablet 10 mg PO DAILY Qty: 90 0RF omeprazole 20 mg capsule,delayed release(DR/EC) 20 mg PO DAILY Qty: 90 0RF (DME) blood pressure test kit-large Kit See Rx Instructions .Route Qty: 1 0RF Rx Instructions: As directed (DME) blood-glucose meter [FreeStyle Lite Meter] Kit See Rx Instructions .Route Qty: 1 0RF Rx Instructions: As directed (DME) FreeStyle Lite Strips Strip See Rx Instructions .ROUTE .MEDSUPPLY Qty: 100 11RF Rx Instructions: As directed three times a day (DME) lancets [FreeStyle Lancets] 28 gauge misc See Rx Instructions .ROUTE .MEDSUPPLY Qty: 100 11RF Rx Instructions: As directed three time a day (DME) FreeStyle Mat 2 [place] Misc See Rx Instructions .ROUTE .MEDSUPPLY Qty: 1 0RF Rx Instructions: As directed (DME) FreeStyle Mat 2 Sensor Kit See Rx Instructions .ROUTE .MEDSUPPLY Qty: 2 11RF Rx Instructions: As directed every 2 weeks ibuprofen 400 mg tablet PO acetaminophen-codeine 300-30 mg tablet 1 tab PO Q8H PRN (Reason: pain) 4 Days Qty: 12 0RF Referrals: Anjel Andrew MD [Physician, Ear, Nose, Throat] Stand Alone Forms: Work/School Release Interventions: ED Discharge Assessment Last Done: 07/16/25 16:26 Discharge Date/Time: 07/16/25 16:26 Print Language: Thai
--- OUTSIDE RECORDS SUMMARY | 2025-07-16 13:34 | XMS_ITS | Encounter Summary ---
Author Organization [employer] Address [address] [place] [address] Care Team Providers Care Audience Coordinator Name Role Phone Unavailable Primary Care Provider Unavailabl e Reason for Visit * Reason Onset Date Comments oral surgery or Dr. Rey 08/30/2024 Encounter Details Date Type Department Care Team ([facility] st Contact Info) Description 08/30/2024 Telephone [facility] [address], [place] [phone] Peña Harrison, GONZALEZ [address], [place] [phone] oral surgery or Dr. Rey Social History [...] Otherwise heis waiting for call back from [facility] for Dr. Rey. This [facility] documented in this encounter Plan of Treatment Not on file documented as of this encounter Visit Diagnoses Not on filedocumented in this encounter
--- OUTSIDE RECORDS SUMMARY | 2025-07-16 13:34 | XMS_ITS | Clinical Summary ---
Author Organization [employer] Address [address] [place] [address] Care Team Providers Care Associate Store Leader Name Role Phone Unavailable Primary Care Provider [...] MINI PEN NEEDLES 31G X 5 MM [facility] USE ONE PEN NEEDLE SUBCUTANEOUSLY ONCE DAILY [...] Active Active Problems No known active problems Social History Tobacco Use Types Packs/Day Years [...] Panel 1966 SDOH Screening 1966 Sigmoidoscopy 1966 Disability Screening 1966 Alcohol/Substance Use Screening 1978 Tobacco Screening 1978 Hepatitis C Screening 1984 Hepatitis B Vaccines (1 of 3 - 19+ 3-dose series) 1985 Zoster Vaccines (1 of 2) 2016 Pneumococcal Vaccine: 50+ Years (2 of 2 - PCV) 06/24/2019 06/24/2018 COVID-19 Vaccine ( - season) 2025 Influenza Vaccine (#1) 2025 3, 05/15/2022, 05/06/2021, Additional history exists Dental X-Ray: [...] patient's age to complete this topic Meningococcal B Vaccine Aged Out No l onger eligible based on patient's age to complete [...] Procedure Name Priority Date/Time Associated Diagnosis Comments BITEWING - SINGLE RADIOGRAPHIC IMAGE Routine 08/30/2024 3:30 PM EST from Last 3 Months or Most Recently Relevant to Health [place] [address] DENTAL - HSN PARTIAL (MEDICAID)
[2025-07-16 13:57] LABS: MANUAL DIFF FLAG NO
[2025-07-16 13:58] LABS: Hematocrit 45.4 % (42.0-52.0); Hemoglobin 15.3 g/dl (14.0-18.0); Imm Gran Abs Auto 0.02 X10*3/uL (0.00-0.03); Imm Gran Pct Auto 0.2 % (0.0-0.4); Lymphocytes Absolute Auto 1.9 X10*3/uL (1.2-4.9); Mean Corpuscular HGB Conc 33.7 g/dl (31.0-36.0); Mean Corpuscular Hemoglobin 28.3 pg (27.0-33.0); Mean Corpuscular Volume 84.1 fL (80.0-98.0); NRBC Abs Auto 0.000 X10*3/uL (0.0-0.012); NRBC Pct Auto 0.0 /100WBC (0.0-0.2); Platelet Count 255 X10*3/uL (160-400); Red Blood Count 5.40 X10*6/uL (4.60-5.80); White Blood Count 8.6 X10*3/uL (4.8-10.8)
[2025-07-16] MEDS: Diphth,Pertus(ACell),Tet Adult 0.5 ML SYRINGE IM (14:01)
[2025-07-16 14:14] LABS: Anion Gap 15 (12-20); Blood Urea Nitrogen 20 mg/dL (9-16); Calcium 9.1 mg/dL (8.4-10.2); Carbon Dioxide 21 mmol/L (22-29); Chloride 101 mmol/L (96-108); Creatinine Clr Calc Pharmacy 134.3; Estimated Glomerular Filt Rate > 60; Potassium 4.4 mmol/L (3.3-5.1); Sodium 133 mmol/L (135-145)
[2025-07-16] MEDS: iohexoL 350 MG/ML 100 ML INFUS..BTL IV (14:34)
[2025-07-16 15:03] LABS: Glucose, Whole Blood 423 mg/dL (60-115)
[2025-07-16 15:17] VITALS: BP 131/81; PULSE 90; RESP 20; TEMP 36.7; O2SAT 97
[2025-07-16 16:05] LABS: Glucose, Whole Blood 393 mg/dL (60-115)
[2025-07-16 16:12] LABS: Appearance Urine Clear; Glucose Urine UA >=1000 mg/dL (Negative); PH 5.0 (5.0-9.0); Specific Gravity - Urine >= 1.030 (1.005-1.025); UMIC TRIGGER UACC YES
[2025-07-16 16:18] VITALS: BP 133/82; PULSE 88; RESP 20; TEMP 36.7; O2SAT 98
[2025-07-16 16:26] VITALS: BP 133/82; PULSE 88; RESP 20; TEMP 36.7; O2SAT 98
== END 2025-07-16 16:26 | disposition home or self-care (01) ==
PROVIDERS: Nurse Practitioner Family; Emergency Provider Emergency Medicine Emergency Medical Services; PCP Physician Assistant
DX: E11.65 Type 2 diabetes mellitus with hyperglycemia (principal); S02.2XXA Fracture of nasal bones, initial encounter for closed fracture; W01.0XXA Fall on same level from slipping, tripping and stumbling without subsequent striking against object, initial encounter; R10.A2 Flank pain, left side; Y93.89 Activity, other specified; Y92.410 Unspecified street and highway as the place of occurrence of the external cause; Y99.0 Civilian activity done for income or pay; Z23 Encounter for immunization
CPT/HCPCS: 36415; 70450; 70486; 71260; 72125; 74177; 80048; 81001; 82947; 85025; 90471; 90715; 96361; 96372; 96374; 96375; 99284; 99285; J1885; Q9967

== ENCOUNTER → 2025-07-16 13:27 | Outpatient (BNV) | payer OTHER, SELFPAY | PROVIDERS: Emergency Provider Emergency Medicine Emergency Medical Services; PCP Physician Assistant; Visit Provider Radiology Diagnostic Radiology | DX: R10.9 Unspecified abdominal pain (principal); R07.89 Other chest pain; S09.90XA Unspecified injury of head, initial encounter; M95.0 Acquired deformity of nose; Z04.3 Encounter for examination and observation following other accident | CPT/HCPCS: 70450; 70486; 71260; 72125; 74177 ==